=== PATIENT | male | born 1945 | race Caucasian/White ===

== ENCOUNTER → 2016-05-26 | Outpatient (CLI) | payer BC ==
[~2016-05-26] MED LIST: ALBUAER; ASPEC81 PO; ATOR-22 PO; ATV1 PO; FLNIN NAE; METO25TA3 PO; PRLSR20 PO
[2016-05-26 12:59] LABS: BLOOD UREA NITROGEN 14 mg/dl (7-18); BUN/CREATININE RATIO 14.7 (10-20); CALCIUM 8.6 mg/dl (8.5-10.1); CARBON DIOXIDE 29 mmol/L (21-32); CHLORIDE 108 mmol/L (98-107); CREATININE 0.96 mg/dl (0.60-1.40); GLUCOSE 89 mg/dl (70-99); POTASSIUM 4.1 mmol/L (3.5-5.1); SODIUM 144 mmol/L (136-145)
[2016-05-26 13:23] LABS: ALB/GLOB RATIO 1.2 (0.9-2); ALKALINE PHOSPHATASE 106 U/L (45-117); ALT/SGPT 30 U/L (12-78); AST/SGOT 20 U/L (15-37); CHOLESTEROL 128 mg/dl (0-200); CHOLESTEROL/HDL RATIO 2.8; HDL CHOLESTEROL 46 mg/dl; LDL CHOLESTEROL CALCULATED 63 mg/dl; TRIGLYCERIDES 95 mg/dl (0-150); VERY LOW DENSITY LIPOPROT CALC 19 mg/dl
--- NOTE | 2016-05-30 12:06 | CODING QUERY MEDICAL NECESSITY ---
SUPPORTING DIAGNOSIS NEEDED A supporting diagnosis is required for the test/procedure performed on this patient in order for us to be reimbursed by the patient's insurance. Please provide a supporting diagnosis for the following test/procedure listed below next to the test name along with your signature. *If there is no additional diagnosis for this patient that would support the following test/procedure please document that below next to the test/procedure. Test(s)/Procedure(s) that require a supporting diagnosis: * VITAMIN D 25-HYDROXY DIAGNOSIS: * DOS: 05/26/16 Provider Signature: Date: Thank you Earlene Ramey Health Information Management Once completed, please kindly fax back to [phone] For questions please call [phone]
== END | disposition home or self-care (01) ==
LOC: C.LAB 10:54
PROVIDERS: ATTEND Family Medicine
DX: Z00.00 Encounter for general adult medical examination without abnormal findings (principal); E78.9 Disorder of lipoprotein metabolism, unspecified; I10 Essential (primary) hypertension; I25.2 Old myocardial infarction

== ENCOUNTER → 2017-01-16 | Outpatient (CLI) | payer BC ==
--- NOTE | 2017-01-16 16:09 | DIAGNOSTIC IMAGING REPORT ---
ABD/PELVIS NO IV OR ORAL CONT CLINICAL HISTORY: 71 years-old Male presenting with inguinal hernia. TECHNIQUE: Multidetector CT of the abdomen and pelvis was performed without the use of intravenous contrast. IV contrast: None. A dose lowering technique was used consistent with the principles of ALARA (as low as reasonably achievable). COMPARISON: 01/01/2011. CT DOSE (mGy.cm): The estimated cumulative dose is 781.82 mGycm. FINDINGS: Chief Dietitian topogram: Unremarkable. Lung bases: Minimal dependent changes likely atelectasis. Normal heart size. No pericardial or pleural effusion. Liver: Normal morphology. Normal density. Biliary: No gross biliary ductal dilatation allowing for noncontrast technique. Normal gallbladder. Pancreas: Moderate parenchymal atrophy. Spleen: Normal noncontrast appearance. Adrenal glands: Normal noncontrast appearance. Kidneys and ureters: Nonobstructing 3 mm calculus in the upper pole of the left kidney. No hydronephrosis. A punctate calculus may be present in the right kidney (series 3 image 153). Ureters normal. Bladder: Mild circumferential bladder wall thickening. Pelvic organs: Prostate enlargement likely secondary to benign prostatic hyperplasia. Bowel: Diverticulosis of the descending and sigmoid colon. Normal appendix. No bowel obstruction. Feces in the distal small bowel could suggest delayed transit. Peritoneal cavity: No free fluid or intraperitoneal gas. Vasculature: Atherosclerosis of the normal caliber abdominal aorta. Lymph nodes: No gross lymphadenopathy allowing for noncontrast technique. Abdominal wall: Penile implant is in place with a normal appearance of the reservoir subjacent to the left rectus abdominis. Fat-containing right inguinal hernia. No associated inflammatory change or fluid suggest strangulation. Musculoskeletal: Degenerative changes of the spine. IMPRESSION: 1. Fat-containing right inguinal hernia. No associated inflammatory change. 2. Nonobstructing 3 mm calculus in the upper pole of the left kidney. Possible punctate calculus in the right kidney. 3. Circumferential bladder wall thickening could suggest chronic outlet obstruction in the setting of prostatomegaly. 4. Diverticulosis. Electronically signed by: Torin White M.D. 01/16/2017 4:08 PM Dictated Date/Time: 01/16/2017 4:01 PM
== END | disposition home or self-care (01) ==
LOC: C.CTS 15:09
PROVIDERS: ATTEND Urology
DX: K40.90 Unilateral inguinal hernia, without obstruction or gangrene, not specified as recurrent (principal)

== ENCOUNTER → 2017-05-07 | Outpatient (CLI) | payer BC ==
[~2017-05-07] MED LIST changes: -ALBUAER; -ASPEC81 PO; +ASPI81TA28 PO; +ATV/1 PO; -ATV1 PO; +CEPH500C2 PO; +Co Q-10 PO; +FIBER TAB PO; -FLNIN NAE; +FLUT0.15 INTNAS; +HYDR-5688 PO; +MAGN400T6 PO; +MULT-506 PO; +NTRGSL/4 UT; +QVRINH80 INH; +RANI150T3 PO; +SENNTAB23 PO
--- NOTE | 2017-05-07 15:14 | DIAGNOSTIC IMAGING REPORT ---
CT HEAD WITHOUT CONTRAST (CT) CLINICAL HISTORY: POSTERIOR CEREBRAL ARTERY SYNDROME COMPARISON STUDY: 02/07/2011 TECHNIQUE: Axial CT of the brain is performed from the vertex to the skull base. IV contrast was not administered for this examination. A dose lowering technique was utilized adhering to the principles of ALARA. CT DOSE: 638.56 mGycm FINDINGS: No intra or extra-axial mass lesions are visualized. There is no CT evidence of acute cortical infarction. There is no evidence of midline shift. There is no acute hemorrhage. No calvarial fractures are visualized. There are a few small calcifications present within the anne. There is no evidence of pathologic ventricular dilatation. There is no evidence of acute sinusitis IMPRESSION: No acute intracranial findings Electronically signed by: Morgan Valdez M.D. 05/07/2017 3:13 PM Dictated Date/Time: 05/07/2017 3:12 PM
== END | disposition home or self-care (01) ==
LOC: C.CTS 15:02
PROVIDERS: ATTEND Family Medicine
DX: G46.2 Posterior cerebral artery syndrome (principal); H53.8 Other visual disturbances

== ENCOUNTER → 2017-08-27 | Outpatient (CLI) | payer BC ==
[2017-08-27 17:23] LABS: BLOOD UREA NITROGEN 17 mg/dl (7-18)
== END | disposition home or self-care (01) ==
LOC: C.LAB 15:59
DX: H90.5 Unspecified sensorineural hearing loss (principal)

== ENCOUNTER → 2017-10-03 | Outpatient (CLI) | payer BC ==
[~2017-10-03] MED LIST changes: +BECL80AE7 INH; -CEPH500C2 PO; -HYDR-5688 PO; -QVRINH80 INH
--- NOTE | 2017-10-03 11:23 | DIAGNOSTIC IMAGING REPORT ---
BRAIN COMBO FOR IAC CLINICAL HISTORY: H90.5 SNHL hearing loss. TECHNIQUE: Multiaxial MRI acquisition COMPARISON STUDY: None FINDINGS: Diffusion images are negative for an acute ischemic event. Signal characteristics of the cerebellar as well as cerebral hemispheres are unremarkable. Ventricular system is midline. The internal auditory canals are normal. Sella and parasellar regions are unremarkable. Minimal chronic small vessel change and atrophy consistent with age IMPRESSION: Negative study for age The above report was generated using voice recognition software. It may contain grammatical, syntax or spelling errors. Electronically signed by: Delano Negrete M.D. 10/03/2017 11:22 AM Dictated Date/Time: 10/03/2017 11:17 AM
== END | disposition home or self-care (01) ==
LOC: C.MRI 09:38
DX: H90.5 Unspecified sensorineural hearing loss (principal)

== ENCOUNTER 2020-10-05 03:45 | Inpatient (IN) ==
[2020-10-05] MEDS ORDERED: SODIUM CHLORIDE 0.9% 500 ML IV STA (04:15)
[2020-10-05] MEDS ORDERED: SODIUM CHLORIDE 0.9% 1000ML 1,000 ML IV ONE (04:45)
[2020-10-05 04:46] LABS: Basophils # (auto) 0.02 K/uL (0-0.2); Basophils % (auto) 0.2 %; Eosinophils # (auto) 0.07 K/uL (0-0.5); Eosinophils % (auto) 0.7 %; Hematocrit (blood only) 42.9 % (42-52); Hemoglobin 14.3 g/dL (14.0-18.0); Immature Granulocytes # (auto) 0.02 K/uL (0.00-0.02); Immature Granulocytes % (auto) 0.2 %; Lymphocytes # (auto) 0.83 K/uL (1.2-3.4); Lymphocytes % (auto) 8.3 %; Mean Corpuscular Hemoglobin 30.3 pg (25-34); Mean Corpuscular Hgb Conc 33.3 g/dL (32-36); Mean Corpuscular Volume 90.9 fL (80-100); Monocytes # (auto) 0.69 K/uL (0.11-0.59); Monocytes % (auto) 6.9 %; Neutrophils # (auto) 8.37 K/uL (1.4-6.5); Neutrophils % (auto) 83.7 %; Platelet Count 193 K/uL (130-400); RDW Coefficient of Variation 13.8 % (11.5-14.5); RDW Standard Deviation 46.1 fL (36.4-46.3); Red Blood Count 4.72 M/uL (4.7-6.1)
[2020-10-05 05:09] LABS: Albumin Level 3.7 gm/dl (3.4-5.0); BUN Creatinine Ratio 21.3 (10-20); Calcium 8.5 mg/dl (8.5-10.1); Creatinine Clr Calc Pharmacy 81.1 ml/min; Est GFR (African American) 103.8 ml/min; Est GFR (Non-African American) 89.6 ml/min; Potassium 3.6 mmol/L (3.5-5.1)
[2020-10-05 05:12] LABS: C Reactive Protein 6.61 mg/dl (0-0.29); Globulin 3.6 gm/dl (2.5-4.0); Total Protein 7.3 gm/dl (6.4-8.2)
[2020-10-05] MEDS ORDERED: OPTIRAY 320 100ml IV ONE (05:22)
[2020-10-05 07:06] LABS: Appearance Urine Clear (Clear); Bilirubin Urine Negative (Negative); Blood Urine Negative (Negative); Color Urine Yellow; Glucose Urine UA Negative (Negative); Ketones Urine Trace (Negative); Leukocyte Esterase Urine Negative (Negative); Nitrite Urine Negative (Negative); Protein Urine Negative (Negative); Specific Gravity Urine 1.033 (1.000-1.030); Urobilinogen Urine Negative (Negative); pH Urine 6.5 (4.5-7.5)
--- NOTE | 2020-10-05 07:25 | History & Physical Report ---
Date of Service October 05, 2020 Assessment & Plan (1) Gastritis: Patient presents with abdominal discomfort significant weight loss and nausea. Diagnosed with both Crohn's disease and celiac disease. Recently had endoscopy in July 2020 showing gastritis and duodenitis. Patient intolerant of support at home given lack of able to keep oral intake down. Patient will be brought to our facility put on Protonix intravenous GI consultation consideration of Carafate but this will be held as there is a consideration of repeat upper endoscopy. Following laboratories including LFTs. Patient does have a minor elevation of lipase to 883 subsequently n.p.o. and IV fluids will be entertained for the possibility of mild pancreatitis (2) CAD (coronary artery disease): Patient typically in aspirin atorvastatin this will be held at this time metoprolol succinate will be continued with a small sip of water (3) Dyslipidemia: (4) Idiopathic polyneuropathy: Seems to be stable at this time (5) DVT prophylaxis: Chemoprophylaxis is on hold for possible procedure patient will have SCDs History of Present Illness Primary Care Provider: Jass Lizarraga MD 75-year-old male presents with abdominal pain and recent weight loss to emergency department. Patient with recent endoscopy August 04, [address] Delaney at that time gastritis was seen. Seen by his PCP and may following up for Crohn's and celiac disease that time he was started on 6-MP. There is also discussion of the PCP note regarding mental status including a neuro evaluation MRI of his brain and the use of lorazepam 1 mg 3 times daily. In the ER he is unable to tolerate oral intake labs are stable CT scan was only suggestive of colitis and duodenitis. Patient has had no increased diarrhea or change in bowel habits consistent with a lower bowel inflammation such as consideration for his Crohn's or celiac. 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 Allergies Allergy/AdvReac Type Severity Reaction Status Date / Time tamsulosin Allergy Intermediate SYNCOPE Verified 10/05/20 07:15 doxycycline Allergy Unknown UNKNOWN Verified 10/05/20 07:15 Home Medications Medication Instructions Recorded Confirmed Type aspirin 81 mg PO QAM 06/21/19 10/05/20 History nitroglycerin 0.4 mg sublingual 0.4 mg SL Q5M PRN #20 tab 10/21/19 10/05/20 Rx tablet magnesium oxide 400 mg PO BID cap 01/29/20 10/05/20 History sennosides 8.6 mg-docusate sodium 1 tabcap PO BID PRN tab 01/29/20 10/05/20 History 50 mg tablet pantoprazole 40 mg tablet,delayed 40 mg PO QAM 90 Days #90 tab 04/28/20 10/05/20 Rx release ondansetron HCl 8 mg tablet 8 mg PO Q8H PRN #20 tab 06/20/20 10/05/20 Rx atorvastatin 40 mg tablet 40 mg PO HS #90 tab 07/28/20 10/05/20 Rx metoprolol succinate 25 mg 25 mg PO QAM #90 tab 07/28/20 10/05/20 Rx tablet,extended release 24 hr lorazepam 1 mg tablet 1 mg PO TID PRN #90 tab 10/04/20 10/05/20 Rx mercaptopurine 75 mg PO DIRECTED 10/05/20 10/05/20 History Past Med/Surg History Medical History Acid reflux CAD (coronary artery disease) Remote history of anterior myocardial infarction 1992 treated with thrombolytic therapy. Followed by [facility]. Celiac disease Crohn's colitis Diverticulosis Dizziness Dyslipidemia History of kidney stones History of myocardial infarction 1992 - follows w/ Dr. Yu Hx of gastritis Lower back pain Mild intermittent asthma NO ACTIVE INHALER Sensorineural hearing loss of both ears Tinnitus, bilateral Surgical History History of cardiac cath 1992 - [place] - angioplasty (no stents) History of colonoscopy History of esophagogastroduodenoscopy (EGD) History of left cataract surgery History of penile implant Hx of inguinal hernia repair Rt Status post trigger finger release Family History Father , age 71 of chronic leukemia Stroke Kidney stones Lung cancer Brother Skin cancer Other No family history of adverse response to anesthesia Social History Smoking Status: Never smoker Second Hand Exposure: No; Hx Alcohol Use: No Hx Substance Use: No Preferred Language: [place] Communication Ability: Effective Visual Impairment: No Limitations Hearing Ability: Normal Vault Installer Required: No Beliefs That Will Affect Care: None marital status: Current Living Situation: Spouse current occupational status: 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 Feels Safe at Home: Yes Dental Care, Regularly: Yes Physical Activity Frequency: 3-4 Times per Week Physical Activity Frequency Comment: walking Seatbelt Use: always Assistive Devices: Glasses Review of Systems Review of Systems: Mild distress and fatigue no headache, no visual changes no speech or swallowing issues no chest pain, pressure or palpitations no shortness of breath, cough or wheezes no abdominal pain, nausea or vomiting, diarrhea or constipation no dysuria, hematuria or frequency no focal joint pain or swelling no back pain, CVA tenderness or radicular pain no bruising, bleeding or rashes no focal signs of weakness or numbness or altered sensation no complaints of anxiety or depression.. Physical Exam Physical Exam: The patient appeared well nourished and normally developed. Vital signs as documented. Head exam is normocephalic atraumatic Neck is without JVD, thyromegaly, or carotid bruits. Lungs are clear to auscultation, no focal loss of breath sounds Cardiac exam, Rhythm is regular.. No murmurs, rubs or gallops. Abdominal exam reveals normal bowel sounds, soft non tender, no masses Extremities are nonedematous and both pedal pulses are present Neurologic exam is alert and oriented, no focal loss of strength or sensation Skin is without bruises or rashes Psychologically is without concerns for anxiety or depression Results & Data Results & Data ([facility]) Vital Signs (Past 12 Hours) Vital Signs Temp Pulse Pulse Resp BP BP Pulse Ox 10/05/20 07:08 107 H 22 137/80 96 10/05/20 06:30 110 H 20 97 10/05/20 06:00 98 H 13 95 10/05/20 05:30 98 H 19 93 10/05/20 05:00 97 H 15 94 10/05/20 04:30 105 H 18 93 10/05/20 04:21 94 10/05/20 04:18 104 H 17 94 10/05/20 04:17 106 H 17 118/78 98 10/05/20 03:57 97.9 F 85 16 118/[address] abdomen pelvis performed 10/05/2020 read by stat rad edema in the right upper quadrant of the abdomen adjacent to the distal stomach and proximal duodenum. Consider gastritis and/or duodenitis. Gastric ulcer disease is not excluded although no perforation is seen cholecystitis is considered less likely. Large amount of stool in the right colon with maximum diameter 7.4 cm. No other dilated bowel loops are seen. Diverticulosis in the sigmoid colon without acute diverticulitis. Appendix is not visualized. Abdominal aorta is calcified. Bony structures are intact. PG Care Time/CCT Total # of Minutes Spent Total Time Spent with Patient: Total time spent is greater than 50% in coordination of care (as documented) at patient's floor/unit and/or counseling patient: Coding Level of Care Code 02362 Initial Inpt Care Lvl 2 Diagnoses Gastritis K29.70 CAD (coronary artery disease) I25.10 Dyslipidemia E78.5 Idiopathic polyneuropathy G60.9 DVT prophylaxis Z29.9
--- NOTE | 2020-10-05 07:50 | Emergency Department Note ---
Impression & Plan Acute pancreatitis, Gastritis and duodenitis ED Provider Note Name: ERUM MARES Age: 75 Sex: M Arrives Via: Walk-In Informant: Patient ED Provider: Surya Rocha MD Chief Complaint: abdominal pain Impression: Acute Pancreatitis Gastritis and Duodenitis Medical Decision Makin yr old male with difficult last 6+ months with abdominal pains, weight loss and nausea issues. Seen by GI and diagnosed with Crohn's and Celiac, though due to persistent symptoms 6MP started 2 weeks ago. Rapidly worsening since and quite unwell/dehydrated appearing on arrival. Labs with elevated CRP and Lipase. CT with edema around stomach of no clear etiology, though gastritis seems most likely, but could be secondary to pancreatitis, cholecystitis, etc. Reviewed with GI and will started IV PPI along with abx coverage empirically. He does not have peritonitis on exam a this time and thus I do not feel that gen surg emergent eval indicated at this time. Hospitalist consulted for further management. Prior Medical Record and Triage/Nursing Notes reviewed by Me Additional history obtained from chart Differentials:Appendicitis, infections, diverticulitis, UTI, obstruction, mesenteric ischemia, aortic pathology, inflammatory bowel disease, renal colic, PUD, pancreatitis, biliary pathology, hernia, volvulus, constipation, as well as other pathologies. Vital Signs: reviewed and remarkable for tachy Interventions: saline lock, nss bolus, zofran iv, protonix iv, mefoxin iv Labs:Reviewed and remarkable for lipase elevation Imaging:[facility] Radiologist interpretation reviewed by me: "CT ABDOMEN & PELVIS With Contrast: Comparison to June 21, 2019 There is edema in the right upper quadrant of the abdomen adjacent to the distal stomach, proximal duodenum, and gallbladder neck. Consider gastritis and/or duodenitis. Gastric ulcer disease is not excluded although no perforation is seen. Cholecystitis is considered less likely. There is a large amount of stool in the right colon measuring 7.4 cm consistent with constipation. No other dilated bowel loops are seen. There is diverticulos is of the sigmoid colon without signs of acute diverticulitis. The appendix is not clearly visualized. The abdominal aorta is moderately calcified but nondilated. There is a penile pump reservoir in the left anterior pelvis. Mild to moderate degenerative changes of the lumbar spine. No acute fracture or subluxation. Radiologist: Nate Allen MD" EKG:Per My Interpretation: Indication Epigastric pain: NSR 95 bpm, qtc 485 with RBBB. No Ectopy. No Ischemia. Compared to EKG 02/18/17, no significant changes. Consults:Dr Matthias CARRILLO GI and Dr Dominique CARRILLO Hospitalist Plan: Disposition:Hospitalization. Condition: Good History of Present Illness:75 yr old male arrives for evaluation of nausea. Patient with 6 months of eating issues, nausea, and weight loss. Following with GI here who have diagnosed him with Celiac and Crohn's. Due to persistent symptoms started on 6MP 2 weeks ago, which he notes this has just been worsening symptoms since. Unable to eat due to severe nausea the last few days. Associated with vague epigastric pain without radiation, though did note some mild left flank discomfort periodically the last few days. No fevers, chills, syncope, chest pain, sob, rashes, urinary/bowel changes, leg swelling, calf pain, nor other symptoms. No falls, trauma, injuries. No medications prior to arrival. Eating makes worse. ROS: See above HPI for pertinent positives & negatives. A total of 10 systems reviewed and were otherwise negative. Past Medical History:See Below Past Surgical History:See Below Family History:See Below Social History:See Below Home Medications:See Below Allergies:Tamsulosin, doxycycline Vitals:Blood Pressure: 137/80, Pulse 107, RR 22, T 36.6C, O2 96% on RA Physical Exam: GENERAL: Patient is uncomfortable/unwell appearing and in minimal distress. He is cachectic and dehydrated by examine EYES: No scleral icterus, unremarkable pupils. ENT: Mucous membranes dry ++, no nasal congestion. NECK: No masses appreciated, nomeningismus, trachea is midline. RESPIRATORY: No dyspnea. Clear to auscultation and equal bilaterally. No wheeze, no rhonchi. CARDIOVASCULAR: Regular rate and rhythm.No murmurs, rubs, gallops appreciated. GASTROINTESTINAL: Vague epigastric TTP, otherwise abdomen soft, non-tender, no peritonitis.Bowel sounds positive.No masses appreciated. BACK: No midline tenderness, no CVA tenderness EXTREMITIES: Normal motion all extremities, no cyanosis, no edema. NEUROLOGIC: Alert and oriented, no acute motor or sensory deficits, no focal weakness, cranial nerves grossly intact. SKIN: No rash, no jaundice, no diaphoresis. PSYCH: Appropriate GCS: 15 ED Course: Times/Reassessments: multiple improvement with fluids/zofran. Agreeable to hospitalization Surya Rocha MD Past Med/Surg History Medical History Acid reflux CAD (coronary artery disease) Remote history of anterior myocardial infarction 1992 treated with thrombolytic therapy. Followed by [facility]. Celiac disease Crohn's colitis Diverticulosis Dizziness Dyslipidemia History of kidney stones History of myocardial infarction 1992 - follows w/ Dr. Yu Hx of gastritis Lower back pain Mild intermittent asthma NO ACTIVE INHALER Sensorineural hearing loss of both ears Tinnitus, bilateral Surgical History History of cardiac cath 1992 - [place] - angioplasty (no stents) History of colonoscopy History of esophagogastroduodenoscopy (EGD) History of left cataract surgery History of penile implant Hx of inguinal hernia repair Rt Status post trigger finger release Family History Father , age 71 of chronic leukemia Stroke Kidney stones Lung cancer Brother Skin cancer Other No family history of adverse response to anesthesia Social History Smoking Status: Never smoker Second Hand Exposure: No; Hx Alcohol Use: No Hx Substance Use: No Preferred Language: Danish Communication Ability: Effective Visual Impairment: No Limitations Hearing Ability: Normal Inspector Eyeglass Required: No Beliefs That Will Affect Care: None marital status: Current Living Situation: Spouse current occupational status: 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 Feels Safe at Home: Yes Dental Care, Regularly: Yes Physical Activity Frequency: 3-4 Times per Week Physical Activity Frequency Comment: walking Seatbelt Use: always Assistive Devices: Glasses Allergies Allergies Allergy/AdvReac Type Severity Reaction Status Date / Time tamsulosin Allergy Intermediate SYNCOPE Verified 10/05/20 07:15 doxycycline Allergy Unknown UNKNOWN Verified 10/05/20 07:15 Home Meds Home Medications Medication Instructions Recorded Confirmed aspirin 81 mg PO QAM 06/21/19 10/05/20 magnesium oxide 400 mg PO BID cap 01/29/20 10/05/20 sennosides 8.6 mg-docusate sodium 1 tabcap PO BID PRN tab 01/29/20 10/05/20 50 mg tablet mercaptopurine 75 mg PO DIRECTED 10/05/20 10/05/20 Previous Rx's Medication Instructions Recorded nitroglycerin 0.4 mg sublingual 0.4 mg SL Q5M PRN #20 tab 10/21/19 tablet pantoprazole 40 mg tablet,delayed 40 mg PO QAM 90 Days #90 tab 04/28/20 release ondansetron HCl 8 mg tablet 8 mg PO Q8H PRN #20 tab 06/20/20 atorvastatin 40 mg tablet 40 mg PO HS #90 tab 07/28/20 metoprolol succinate 25 mg 25 mg PO QAM #90 tab 07/28/20 tablet,extended release 24 hr lorazepam 1 mg tablet 1 mg PO TID PRN #90 tab 10/04/20 Results & Data (ED) Vital Signs Vital Signs - 24 hr 10/05/20 03:57 10/05/20 04:17 10/05/20 04:18 Temperature 36.6 C Temperature Source Temporal Artery Scan Pulse Rate 85 106 H 104 H Pulse Rate [Apical] Pulse Rate from SpO2 Sensor 106 H 104 H Respiratory Rate 16 17 17 Blood Pressure 118/79 118/78 Blood Pressure [Left Arm] Blood Pressure Mean 92 91 Blood Pressure Mean [Left Arm] Blood Pressure Position Lying Pulse Oximetry 97 98 94 Oxygen Delivery Method Room Air Sepsis Recent Fever Within 48 Hours No Sepsis New/Unexplained Change in Mental Status No Sepsis Action Taken by Nursing No Action Required 10/05/20 04:21 10/05/20 04:30 10/05/20 05:00 Temperature Temperature Source Pulse Rate 105 H 97 H Pulse Rate [Apical] Pulse Rate from SpO2 Sensor 106 H 97 H Respiratory Rate 18 15 Blood Pressure Blood Pressure [Left Arm] Blood Pressure Mean Blood Pressure Mean [Left Arm] Blood Pressure Position Pulse Oximetry 94 93 94 Oxygen Delivery Method Room Air Sepsis Recent Fever Within 48 Hours Sepsis New/Unexplained Change in Mental Status Sepsis Action Taken by Nursing 10/05/20 05:30 10/05/20 06:00 10/05/20 06:30 Temperature Temperature Source Pulse Rate 98 H 98 H 110 H Pulse Rate [Apical] Pulse Rate from SpO2 Sensor 97 H 97 H 111 H Respiratory Rate 19 13 20 Blood Pressure Blood Pressure [Left Arm] Blood Pressure Mean Blood Pressure Mean [Left Arm] Blood Pressure Position Pulse Oximetry 93 95 97 Oxygen Delivery Method Sepsis Recent Fever Within 48 Hours Sepsis New/Unexplained Change in Mental Status Sepsis Action Taken by Nursing 10/05/20 07:08 Temperature Temperature Source Pulse Rate Pulse Rate [Apical] 107 H Pulse Rate from SpO2 Sensor Respiratory Rate 22 Blood Pressure Blood Pressure [Left Arm] 137/80 Blood Pressure Mean Blood Pressure Mean [Left Arm] 99 Blood Pressure Position Pulse Oximetry 96 Oxygen Delivery Method Room Air Sepsis Recent Fever Within 48 Hours Sepsis New/Unexplained Change in Mental Status Sepsis Action Taken by Nursing Laboratory Data Result diagrams: 10/05/20 04:15 10/05/20 04:15 Lab Results 10/05/20 10/05/20 10/05/20 Range/Units 04:15 04:15 06:50 WBC 10.00 (4.8-10.8) K/uL RBC 4.72 (4.7-6.1) M/uL Hgb 14.3 (14.0-18.0) g/dL Hct 42.9 (42-52) % MCV 90.9 (80-100) fL MCH 30.3 (25-34) pg MCHC 33.3 (32-36) g/dL RDW Std Deviation 46.1 (36.4-46.3) fL RDW Coeff of Daquan 13.8 (11.5-14.5) % Plt Count 193 (130-400) K/uL MPV 10.0 (7.4-10.4) fL Immature Gran % (Auto) 0.2 % Neut % (Auto) 83.7 % Lymph % (Auto) 8.3 % [place] % (Auto) 6.9 % Eos % (Auto) 0.7 % Baso % (Auto) 0.2 % Neut # (Auto) 8.37 H (1.4-6.5) K/uL Lymph # (Auto) 0.83 L (1.2-3.4) K/uL [place] # (Auto) 0.69 H (0.11-0.59) K/uL Eos # (Auto) 0.07 (0-0.5) K/uL Baso # (Auto) 0.02 (0-0.2) K/uL Immature Gran # (Auto) 0.02 (0.00-0.02) K/uL Sodium 135 L (136-145) mmol/L Potassium 3.6 (3.5-5.1) mmol/L Chloride 103 (98-107) mmol/L Carbon Dioxide 27 (21-32) mmol/L Anion Gap 5 (3-11) BUN 16 (7-18) mg/dl Creatinine 0.74 (0.6-1.4) mg/dl Est Cr Clr Drug Dosing 81.1 ml/min Est GFR ( Amer) 103.8 ml/min Est GFR (Non-Af Amer) 89.6 ml/min BUN/Creatinine Ratio 21.3 H (10-20) Glucose 93 (70-99) mg/dl Calcium 8.5 (8.5-10.1) mg/dl Total Bilirubin 1.0 (0.2-1) mg/dl AST 44 H (15-37) U/L ALT 87 H (12-78) U/L Alkaline Phosphatase 101 (45-117) U/L C-Reactive Protein 6.61 H (0-0.29) mg/dl Total Protein 7.3 (6.4-8.2) gm/dl Albumin 3.7 (3.4-5.0) gm/dl Globulin 3.6 (2.5-4.0) gm/dl Albumin/Globulin Ratio 1.0 (0.9-2) Lipase 883 H (73-393) U/L Urine Color Yellow Urine Appearance Clear (Clear) Urine pH 6.5 (4.5-7.5) Ur Specific [place] 1.033 H (1.000-1.030) Urine Protein Negative (Negative) Urine Glucose (UA) Negative (Negative) Urine Ketones Trace H (Negative) Urine Blood Negative (Negative) Urine Nitrite Negative (Negative) Urine Bilirubin Negative (Negative) Urine Urobilinogen Negative (Negative) Ur Leukocyte Esterase Negative (Negative) Administered Medications Discontinued Medications Sodium Chloride (Nss) 500 mls @ 999 mls/hr IV .Q31M STA Stop: 10/05/20 04:45 Last Infusion: 10/05/20 04:59 Dose: 0 mls/hr Documented by: [id number] Admin: 10/05/20 04:25 Dose: 999 mls/hr Documented by: [id number] Sodium Chloride (Nss 1000ml) 1,000 mls @ 999 mls/hr IV .Q1H1M ONE Stop: 10/05/20 05:45 Last Infusion: 10/05/20 06:46 Dose: 0 mls/hr Documented by: [id number] Admin: 10/05/20 05:32 Dose: 999 mls/hr Documented by: [id number] Ioversol (Optiray 320 100ml) 94 ml IV ONCE ONE Stop: 10/05/20 05:23 Last Admin: 10/05/20 05:22 Dose: 94 ml Documented by: [id number] Discharge Plan Visit Data Chief Complaint: Abdominal Pain Stated Complaint: ABD,WEAKNESS ED Provider: Surya Rocha Discharge Problem: Acute pancreatitis, Gastritis and duodenitis Forms Stand Alone Forms: [facility] [employer] Prescriptions Prescriptions: No Action nitroglycerin 0.4 mg tablet, sublingual 0.4 mg SL Q5M PRN (Reason: chest pain) Qty: 20 RF: 3 lorazepam 1 mg tablet 1 mg PO TID PRN (Reason: anxiety) Qty: 90 RF: 0 sennosides-docusate sodium [Colace 2-In-1] 8.6-50 mg tablet 1 tabcap PO BID PRN (Reason: Constipation) RF: 0 magnesium oxide 400 mg magnesium capsule 400 mg PO BID RF: 0 atorvastatin 40 mg tablet 40 mg PO HS Qty: 90 RF: 3 metoprolol succinate 25 mg tablet extended release 24 hr 25 mg PO QAM Qty: 90 RF: 3 pantoprazole [Protonix] 40 mg tablet,delayed release (DR/EC) 40 mg PO QAM 90 Days Qty: 90 RF: 3 ondansetron HCl 8 mg tablet 8 mg PO Q8H PRN (Reason: nausea and vomiting) Qty: 20 RF: 1 aspirin 81 mg tablet,delayed release (DR/EC) 81 mg PO QAM RF: 0 mercaptopurine 50 mg tablet 75 mg PO DIRECTED RF: 0 Discharge Problem: Acute pancreatitis Qualifiers: Pancreatitis type: drug induced Acute pancreatitis complication: no infection or necrosis Qualified Code(s): K85.30 - Drug induced acute pancreatitis without necrosis or infection
[2020-10-05] MEDS ORDERED: cefOXitin 2,000 MG/60 ML BAG IV STA (07:59)
[2020-10-05] MEDS ORDERED: PANTOprazole 80 MG in DEXTROSE 5% 100 ML IV STA (07:59)
--- NOTE | 2020-10-05 09:30 | CT Scan Report ---
CT abd pelvis IV con only CLINICAL HISTORY: LLQ pain, history crohns COMPARISON STUDY: April 12, 2020 TECHNIQUE: A dose lowering technique was utilized adhering to the principles of ALARA. CT DOSE: 273.91 mGy.cm FINDINGS: Lower chest: Limited evaluation of lung bases shows no evidence of acute abnormalities.. Liver: The contrast-enhanced liver is normal in size, contour, and attenuation. There is no intrahepa tic biliary ductal dilatation. The hepatic veins and portal veins are patent. Gallbladder: Unremarkable. Spleen: Normal in size and attenuation. Pancreas: Unremarkable. Adrenal glands: Unremarkable. Kidneys: There is symmetric renal cortical enhancement. The kidneys are normal in size without hydron ephrosis. Pelvic viscera: Urinary bladder is overdistended with mild diffuse thickening of its wall. Prostate g land is slightly enlarged. Visualized abdominal reservoir of penile implant as well as subcutaneous and penile tubing are seen w ithout definite surrounding inflammatory changes. Bowel: There is diffuse wall thickening and mucosal enhancement of the first portion of duodenum with surrounding fat stranding likely represent duodenitis. Bowel loops are nondilated. Appendix is not w ell seen. Moderate amount of stool is seen within colonic loops. Mild diverticulosis of sigmoid colon is seen without evidence of diverticulitis. Peritoneum: There is no intraperitoneal free air or abdominal ascites. Vasculature: The abdominal aorta is normal in course and caliber and with extensive calcifications of its wall. Adenopathy: No significant mesenteric lymphadenopathy seen. Multiple small lymph nodes are seen in th e retroperitoneal region, measuring less than 1 cm in size and considered nonpathological by CT size criteria. Skeletal structures: Multilevel degenerative changes of the spine. Mild anterolisthesis of L4 on L5. IMPRESSION: 1. Inflammatory changes surrounding first portion of duodenum which shows mucosal enhancement and wa ll thickening which could represent duodenitis. No definite cholecystitis or gastritis seen however c annot be completely ruled out. 2. Moderate amount of stool within colonic loops, constipation pattern. 3. Atherosclerosis. 4. Mild enlargement of prostate gland. Overdistended urinary bladder. 5. Diverticulosis of sigmoid colon without evidence of diverticulitis. 6. Fluid-filled abdominal reservoir of penile implant is seen within left lower quadrant, in the reg ion of pain without definite surrounding inflammatory changes. ACT 112: Negative or not required by law. The above report was generated using voice recognition software. It may contain grammatical, syntax o r spelling errors. Electronically signed by: Amaya Andrade DO 10/05/2020 9:29 AM
--- NOTE | 2020-10-05 09:44 | Electrocardiogram Report ---
Test Reason : Blood Pressure : / mmHG Vent. Rate : 095 BPM Atrial Rate : 095 BPM P-R Int : 162 ms QRS Dur : 144 ms QT Int : 386 ms P-R-T Axes : 054 050 030 degrees QTc Int : 485 ms Normal sinus rhythm Right bundle branch block Abnormal ECG When compared with ECG of 18-FEB-2017 14:24, Vent. rate has increased BY 33 BPM Confirmed by Louis Molina ([id number]) on 10/05/2020 9:44:02 AM Referred By: REFERRED SELF Confirmed By:Sergey Molina
[2020-10-05] MEDS: LACTATED RINGER'S 1,000 ML IV SCH ×2 (10:56→17:41)
[2020-10-05] MEDS: PANTOprazole 40 MG in SYRINGE 0 ML IV SCH ×2 (11:30→20:48)
[2020-10-05] MEDS: METOPROLOL SUCC 25MG EXT REL TAB PO SCH (11:30)
[2020-10-05] MEDS: FAMOTIDINE 20 MG in SYRINGE 3 ML IV SCH ×2 (11:30→21:17)
[2020-10-05 11:56] LABS: Albumin Level 3.5 gm/dl (3.4-5.0); BUN Creatinine Ratio 14.1 (10-20); Calcium 9.1 mg/dl (8.5-10.1); Est GFR (African American) 99.6 ml/min; Est GFR (Non-African American) 85.9 ml/min; Potassium 3.9 mmol/L (3.5-5.1)
[2020-10-05 11:58] LABS: Bilirubin,Total 1.1 mg/dl (0.2-1); Globulin 3.5 gm/dl (2.5-4.0)
--- NOTE | 2020-10-05 12:01 | Gastrointestinal Consultation ---
Date of Consultation October 05, 2020 Assessment & Plan (1) Acute pancreatitis: Unclear based on CT, symptoms, and elevated lipase whether this is a duodenitis vs mild pancreatitis. Given he recently began 6MP within the past 2 weeks, there is certainly an increased concern of pancreatitis as this is one of the most common side effects of this medication. -Stop 6MP at present -NPO -IV fluid hydration -Pain control & anti-emetics prn per primary team (2) Gastritis and duodenitis: In the event this is a duodenitis, will treat accordingly with IV Pantoprazole 40 mg BID & Carafate 4 times daily prior to meals and bedtime. If no improvement, can consider repeating EGD. Thank you for allowing us to participating in the care of this patient. If you should have any further questions or concerns, do not hesitate to contact us at extension [phone] or [phone]. Supervising Physician Co-Signing Physician Notes Agree with DANA Kraft as above Abd: Soft, Tender LUQ, ND, +BS Continue current therapy and supportive care Continue PPI therapy Advance to gluten free diet tomorrow if he improves clinically History of Present Illness Reason for Consultation: gastritis, weight loss Attending Physician: Escobar Fox MD History of Present Illness Patient is a 75 yo male with a reported history of Celiac Disease & suspected Crohn's Disease currently undergoing GI care with Dr. Delaney. Per review of notes, it appears he had a colonoscopy in December 2019 that indicated no endoscopic findings, but revealed concern for a focal active colitis on biopsies of the right colon. Patient explains that he was to begin Remicade therapy, but felt uncomfortable proceeding with this due to the lifestyle change and uncertainty of his diagnosis. He recently noted that despite following a gluten- free diet after a TTG was mildly elevated at 6, he continued to have symptoms that concerned him for possible Crohn's. He decided to begin the 6MP for this reason. The patient reports that he started 6MP on 09/17/20 for his suspected Crohn's Disease, rather than Remicade. He presents to the hospital with symptoms of left upper quadrant abdominal pain. He reports that he feels like he has to e at frequently or his stomach hurts worse. Last EGD was in July 2020 and did not indicate any significant issue with the exception of mild gastritis. CT imaging has been read by overnight radiology and day staff as well. The final read indicates a concern for duodenitis. The final read indicates a normal pancreas, however lipase is 883 and patient reports abdominal discomfort in the LUQ. Allergies Allergy/AdvReac Type Severity Reaction Status Date / Time tamsulosin Allergy Intermediate SYNCOPE Verified 10/05/20 07:15 doxycycline Allergy Unknown UNKNOWN Verified 10/05/20 07:15 Home Medications Medication Instructions Recorded Confirmed Type aspirin 81 mg PO QAM 06/21/19 10/05/20 History nitroglycerin 0.4 mg sublingual 0.4 mg SL Q5M PRN #20 tab 10/21/19 10/05/20 Rx tablet magnesium oxide 400 mg PO BID cap 01/29/20 10/05/20 History sennosides 8.6 mg-docusate sodium 1 tabcap PO BID PRN tab 01/29/20 10/05/20 History 50 mg tablet pantoprazole 40 mg tablet,delayed 40 mg PO QAM 90 Days #90 tab 04/28/20 10/05/20 Rx release ondansetron HCl 8 mg tablet 8 mg PO Q8H PRN #20 tab 06/20/20 10/05/20 Rx atorvastatin 40 mg tablet 40 mg PO HS #90 tab 07/28/20 10/05/20 Rx metoprolol succinate 25 mg 25 mg PO QAM #90 tab 07/28/20 10/05/20 Rx tablet,extended release 24 hr lorazepam 1 mg tablet 1 mg PO TID PRN #90 tab 10/04/20 10/05/20 Rx mercaptopurine 75 mg PO DIRECTED 10/05/20 10/05/20 History Patient History Medical History Acid reflux CAD (coronary artery disease) Remote history of anterior myocardial infarction 1992 treated with thrombolytic therapy. Followed by [facility]. Celiac disease Crohn's colitis Diverticulosis Dizziness Dyslipidemia History of kidney stones History of myocardial infarction 1992 - follows w/ Dr. Yu Hx of gastritis Lower back pain Mild intermittent asthma NO ACTIVE INHALER Sensorineural hearing loss of both ears Tinnitus, bilateral Surgical History History of cardiac cath 1992 - [place] - angioplasty (no stents) History of colonoscopy History of esophagogastroduodenoscopy (EGD) History of left cataract surgery History of penile implant Hx of inguinal hernia repair Rt Status post trigger finger release Family History Father , age 71 of chronic leukemia Stroke Kidney stones Lung cancer Brother Skin cancer Other No family history of adverse response to anesthesia Social History Smoking Status: Never smoker Second Hand Exposure: No; Hx Alcohol Use: No Hx Substance Use: No Preferred Language: Swedish Communication Ability: Effective Visual Impairment: No Limitations Hearing Ability: Normal Fleet Manager Required: No Beliefs That Will Affect Care: None marital status: Current Living Situation: Spouse current occupational status: 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 Feels Safe at Home: Yes Safety Concerns: Feels Safe At This Time Dental Care, Regularly: Yes Physical Activity Frequency: 3-4 Times per Week Physical Activity Frequency Comment: walking Seatbelt Use: always Assistive Devices: Glasses Review of Systems Constitutional: weight loss has halted, but this was his previous concern Respiratory: no cough and no dyspnea Cardiovascular: no chest pain Gastrointestinal: + abdominal pain; no early satiety, no nausea and no vomiting Psychiatric: no problem reported Physical Exam Constitutional: well developed Respiratory: normal respiratory effort, lungs clear to auscultation Cardiovascular: RRR, no murmur, no edema Gastrointestinal (Abdomen): Inspection/Auscultation: abdomen normal to inspection and normal bowel sounds; abdomen not distended Percussion/Palpation: + abdomen tender and abdomen soft Musculoskeletal: Head/Neck/Chest: normocephalic Psychiatric: A+Ox3, euthymic affect Results & Data ([facility]) Vital Signs (Past 12 Hours) Vital Signs Temp Pulse Pulse Pulse Resp BP BP 10/05/20 10:44 37.4 C 110 H 18 110/67 10/05/20 10:13 107 H 18 122/69 10/05/20 09:30 97 H 18 120/85 10/05/20 09:00 102 H 18 140/77 10/05/20 08:30 99 H 18 132/75 06/16/21 08:04 114 H 18 136/84 10/05/20 07:30 100 H 18 124/87 10/05/20 07:10 100 H 18 137/80 10/05/20 07:08 107 H 22 137/80 10/05/20 06:30 110 H 20 10/05/20 06:00 98 H 13 10/05/20 05:30 98 H 19 10/05/20 05:00 97 H 15 10/05/20 04:30 105 H 18 10/05/20 04:21 10/05/20 04:18 104 H 17 10/05/20 04:17 106 H 17 118/78 10/05/20 03:57 36.6 C 85 16 118/79 Pulse Ox 10/05/20 10:44 95 10/05/20 10:13 95 10/05/20 09:30 95 10/05/20 09:00 93 10/05/20 08:30 96 10/05/20 08:04 99 10/05/20 07:30 93 10/05/20 07:10 96 10/05/20 07:08 96 10/05/20 06:30 97 10/05/20 06:00 95 10/05/20 05:30 93 10/05/20 05:00 94 10/05/20 04:30 93 10/05/20 04:21 94 10/05/20 04:18 94 10/05/20 04:17 98 10/05/20 03:57 97 PG Care Time/CCT Total # of Minutes Spent Total Time Spent with Patient: Total time spent is greater than 50% in coordination of care (as documented) at patient's floor/unit and/or counseling patient: Coding Level of Care Code 57133 Initial Inpt Care Lvl 3 Diagnoses Acute pancreatitis K85.30 Acute pancreatitis complication: no infection or necrosis Pancreatitis type: drug induced Gastritis and duodenitis K29.90 (1) Acute pancreatitis Acute pancreatitis complication: no infection or necrosis Pancreatitis type: drug induced Qualified Code(s): K85.30 - Drug induced acute pancreatitis without necrosis or infection
[2020-10-05] MEDS: LORazepam 1 MG TAB PO PRN ×2 (12:25→20:47)
[2020-10-05] MEDS: SUCRALFATE 1 GM/10 ML UDC PO SCH ×3 (13:09→20:49)
[2020-10-05] MEDS ORDERED: POLYETHYLENE (MIRALAX) 17 GM PACK PO PRN (19:41)
[2020-10-05] MEDS ORDERED: MoRPHine SULFATE 4 MG/ML 1 ML CARP\\VIAL IV PRN (19:41)
[2020-10-05] MEDS ORDERED: POLYETHYLENE (MIRALAX) 17 GM PACK PO ONE (19:56)
[2020-10-05] MEDS: MAGNESIUM OXIDE 400 MG TAB PO SCH (20:46)
[2020-10-05] MEDS: MoRPHine SULFATE 2 MG/ML CARP IV PRN (23:25)
[2020-10-06] MEDS: MoRPHine SULFATE 2 MG/ML CARP IV PRN (06:39)
[2020-10-06 07:30] LABS: BUN Creatinine Ratio 19.8 (10-20); Calcium 8.5 mg/dl (8.5-10.1); Creatinine Clr Calc Pharmacy 84.4 ml/min; Est GFR (African American) 106.9 ml/min; Est GFR (Non-African American) 92.2 ml/min; Magnesium 2.1 mg/dl (1.8-2.4); Potassium 3.9 mmol/L (3.5-5.1)
[2020-10-06] MEDS: ONDANSETRON INJ 2 MG/ML 2 ML VIAL IV PRN (07:32)
[2020-10-06 07:33] LABS: Bilirubin,Total 1.1 mg/dl (0.2-1); Globulin 3.1 gm/dl (2.5-4.0); Total Protein 6.1 gm/dl (6.4-8.2)
[2020-10-06] MEDS: METOPROLOL SUCC 25MG EXT REL TAB PO SCH (08:14)
[2020-10-06] MEDS: MAGNESIUM OXIDE 400 MG TAB PO SCH ×2 (08:14→19:40)
[2020-10-06] MEDS: SUCRALFATE 1 GM/10 ML UDC PO SCH ×4 (08:15→19:41)
[2020-10-06] MEDS: PANTOprazole 40 MG in SYRINGE 0 ML IV SCH ×2 (08:15→19:40)
[2020-10-06] MEDS: FAMOTIDINE 20 MG in SYRINGE 3 ML IV SCH ×2 (08:16→19:49)
[2020-10-06] MEDS: LACTATED RINGER'S 1,000 ML IV SCH ×3 (11:11→19:41)
[2020-10-06] MEDS ORDERED: SENNA 8.6 MG TAB PO ONE (11:33)
--- NOTE | 2020-10-06 12:36 | Gastroenterology Progress Note ---
Date of Service October 06, 2020 Assessment & Plan (1) Acute pancreatitis: -Ok to do clear liquids -Ok to trend lipase, but would favor following clinical picture (2) Gastritis and duodenitis: -Continue IV Protonix 40 mg BID -Carafate 1 gm four times daily before meals at bedtime -Avoid NSAIDs -If no improvement, can consider repeating EGD though this was done in July 2020 (3) Constipation: -Miralax 17 gm BID -Senna once daily -Colace 100 mg BID Admission and Anticipated Discharge Date Admission Date: October 05, 2020 Supervising Physician Co-Signing Physician Notes Agree with DANA Kraft as above Abd: Soft, tender LUQ, ND, +BS Continue current therapy MRCP negative, but still with duodenitis. Recommend EGD in AM for further evaluation. Subjective Patient is a 75 yo male with duodenitis vs pancreatitis. Patient reporting persistent symptoms of nausea. He notes lower abdominal cramping today relieved with Zofran. Reports constipation. Patient is on BID PPI therapy and QID Carafate. Review of Systems Constitutional: no fever and no chills Respiratory: no problem reported Gastrointestinal: + abdominal pain, + nausea and + constipation Physical Exam Constitutional: well developed Respiratory: normal respiratory effort Cardiovascular: Extremities: no edema Gastrointestinal (Abdomen): Inspection/Auscultation: abdomen normal to inspection and normal bowel sounds Percussion/Palpation: + abdomen tender (left sided abdominal pain) Psychiatric: A+Ox3, euthymic affect Results & Data Results & Data ([facility]) Vital Signs (Past 12 Hours) Vital Signs Temp Pulse Resp BP Pulse Ox 10/06/20 09:56 76 111/69 96 10/06/20 07:26 36.8 C 84 20 124/72 98 PG Care Time/CCT Total # of Minutes Spent Total Time Spent with Patient: Total time spent is greater than 50% in coordination of care (as documented) at patient's floor/unit and/or counseling patient: Coding Level of Care Code 79875 Subseq Hosp Care Lvl 3 Diagnoses Acute pancreatitis K85.30 Acute pancreatitis complication: no infection or necrosis Pancreatitis type: drug induced Gastritis and duodenitis K29.90 Constipation K59.00 (1) Acute pancreatitis Acute pancreatitis complication: no infection or necrosis Pancreatitis type: drug induced Qualified Code(s): K85.30 - Drug induced acute pancreatitis without necrosis or infection
[2020-10-06] MEDS: SENNA 8.6 MG TAB PO SCH (12:50)
[2020-10-06] MEDS: DOCUSATE SODIUM 100 MG CAP PO SCH ×2 (13:37→19:41)
[2020-10-06] MEDS: POLYETHYLENE (MIRALAX) 17 GM PACK PO SCH ×2 (13:38→19:41)
[2020-10-06] MEDS ORDERED: ANUSOL SUPP 1 EA PR PRN (14:06)
--- NOTE | 2020-10-06 14:39 | Magnetic Resonance Report ---
MRCP CLINICAL HISTORY: Elevated pancreatic enzymes. Left-sided abdominal pain. Weight loss. COMPARISON STUDY: Abdominal CT dated 10/05/2020. TECHNIQUE: Abdominal MRCP is performed utilizing various T2-weighted sequence is in the axial and cor onal planes. IV contrast was not administered for this examination. 3-D reformats are created and ass essed. The examination is significantly compromised by motion artifact. FINDINGS: The gallbladder is mildly distended but otherwise normal in appearance. There is no gallbladder wall thickening or surrounding inflammation. No gallstones are identified. There is no intra- or extrahepa tic biliary ductal dilatation. The common bile duct measures up to 3.5 mm in diameter. No intralumina l filling defects are identified to suggest choledocholithiasis. The pancreatic duct is normal in tanner iber. A 10 mm cystic focus in the pancreatic neck is unchanged and typical for a sidebranch IPMN. The unenhanced liver, spleen, adrenal glands, and kidneys are grossly normal. There is a large inflam matory process centered around the proximal duodenum which appears thick walled and edematous. There is trace surrounding fluid. The inflammation also involves the head of the pancreas. There is no evid ence of bowel obstruction. No lymphadenopathy is identified. The abdominal aorta is normal in caliber . No pleural effusion is seen. The bony structures are normal as visualized. IMPRESSION: 1. Normal MRCP. 2. There is a marked inflammatory process centered around the duodenum, and a primary duodenal proces s such as duodenitis or possibly ulcer disease is favored. This could be further assessed with endosc opy, if clinically warranted. 3. The inflammatory process involves the head of the pancreas, and although considered less likely, a groove pancreatitis is a differential consideration. Dictated: 10/06/2020 1:52 PM Transcribed: 10/06/2020 2:12 PM Sadia [id number] [facility] Electronically signed by: Estevan Chavez M.D. 10/06/2020 2:38 PM
[2020-10-06] MEDS: LORazepam 1 MG TAB PO PRN (15:33)
--- NOTE | 2020-10-06 16:59 | Hospitalist Progress Note ---
Date of Service October 06, 2020 Assessment & Plan (1) Gastritis: Patient presents with abdominal discomfort significant weight loss and nausea. Diagnosed with both Crohn's disease and celiac disease. Recently had endoscopy in July 2020 showing gastritis and duodenitis. Protonix plus Carafa te Patient does have persistent elevation of lipase to 800's tolerating clear diet MRCP IMPRESSION:1. Normal MRCP. 2. There is a marked inflammatory process centered around the duodenum, and a primary duodenal process such as duodenitis or possibly ulcer disease is favored. This could be further assessed with endoscopy, if clinically warranted. 3. The inflammatory process involves the head of the pancreas, and although considered less likely, a groove pancreatitis is a differential consideration. (2) CAD (coronary artery disease): Patient typically in aspirin atorvastatin this will be held at this time metoprolol succinate will be continued (3) Dyslipidemia: (4) Idiopathic polyneuropathy: Seems to be stable at this time (5) DVT prophylaxis: Chemoprophylaxis is on hold [facility] Admission and Anticipated Discharge Date Admission Date: October 05, 2020 Subjective Patient is a 75 yo male with duodenitis and persistent pancreatitis. Patient reporting persistent symptoms of nausea. He notes lower abdominal cramping today relieved with Zofran. Reports constipation. Patient is on BID PPI therapy and QID Carafate. Review of Systems Review of Systems: Mild distress and fatigue no headache, no visual changes no speech or swallowing issues no chest pain, pressure or palpitations no shortness of breath, cough or wheezes no abdominal pain, nausea or vomiting, diarrhea or constipation no dysuria, hematuria or frequency no focal joint pain or swelling no back pain, CVA tenderness or radicular pain no bruising, bleeding or rashes no focal signs of weakness or numbness or altered sensation no complaints of anxiety or depression.. Physical Exam Physical Exam: The patient appeared well nourished and normally developed. Vital signs as documented. Head exam is normocephalic atraumatic Neck is without JVD, thyromegaly, or carotid bruits. Lungs are clear to auscultation, no focal loss of breath sounds Cardiac exam, Rhythm is regular.. No murmurs, rubs or gallops. Abdominal exam reveals normal bowel sounds, soft non tender, no masses Extremities are nonedematous and both pedal pulses are present Neurologic exam is alert and oriented, no focal loss of strength or sensation Skin is without bruises or rashes Psychologically is without concerns for anxiety or depression Results & Data Results & Data ([facility]) Vital Signs (Past 12 Hours) Vital Signs Temp Pulse Resp BP Pulse Ox 10/06/20 09:56 76 111/69 96 10/06/20 07:26 98.2 F 84 20 124/72 98 PG Care Time/CCT Total # of Minutes Spent Total Time Spent with Patient: Total time spent is greater than 50% in coordination of care (as documented) at patient's floor/unit and/or counseling patient: Coding Level of Care Code 66094 Subseq Hosp Care Lvl 2 Diagnoses Gastritis K29.70 CAD (coronary artery disease) I25.10 Dyslipidemia E78.5 Idiopathic polyneuropathy G60.9 DVT prophylaxis Z29.9
[2020-10-07] MEDS: LACTATED RINGER'S 1,000 ML IV SCH ×3 (03:29→17:35)
[2020-10-07] MEDS: ONDANSETRON INJ 2 MG/ML 2 ML VIAL IV PRN ×2 (06:32→16:19)
[2020-10-07 07:24] LABS: Hemoglobin 13.4 g/dL (14.0-18.0); Mean Corpuscular Hgb Conc 32.7 g/dL (32-36); Mean Corpuscular Volume 91.9 fL (80-100); Mean Platelet Volume 9.7 fL (7.4-10.4); Platelet Count 204 K/uL (130-400); RDW Coefficient of Variation 13.8 % (11.5-14.5); Red Blood Count 4.46 M/uL (4.7-6.1); White Blood Count 6.72 K/uL (4.8-10.8)
[2020-10-07 07:25] LABS: BUN Creatinine Ratio 11.4 (10-20); Calcium 8.9 mg/dl (8.5-10.1); Creatinine Clr Calc Pharmacy 79.8 ml/min; Est GFR (African American) 104.4 ml/min; Est GFR (Non-African American) 90.1 ml/min; Magnesium 2.1 mg/dl (1.8-2.4); Potassium 3.7 mmol/L (3.5-5.1)
[2020-10-07] MEDS: LORazepam 1 MG TAB PO PRN ×2 (08:38→22:46)
[2020-10-07] MEDS: PANTOprazole 40 MG in SYRINGE 0 ML IV SCH ×2 (08:42→19:55)
[2020-10-07] MEDS ORDERED: PROPOFOL IV EMULSION 10 MG/ML 20 ML VIAL IV ONE (08:59)
[2020-10-07] MEDS ORDERED: LIDOCAINE 2% 2 ML VIAL/AMP(20MG/ML) INFIL ONE (08:59)
--- NOTE | 2020-10-07 09:08 | Gastroenterology Progress Note ---
Date of Service October 07, 2020 Assessment & Plan (1) Gastritis and duodenitis: (2) Left sided abdominal pain: Continue current therapy Proceed with EGD today. Admission and Anticipated Discharge Date Admission Date: October 05, 2020 Subjective With continued Left sided abdominal pain. He describes it as achy and associated with nausea this AM. Relieved with Zofran and Narcotic analgesia. He states he is frustrated with progress at present. Physical Exam Constitutional: WD/WN, vitals as above Respiratory: normal respiratory effort, lungs clear to auscultation Cardiovascular: RRR, no murmur, no edema Gastrointestinal (Abdomen): Inspection/Auscultation: abdomen normal to inspection and normal bowel sounds; abdomen not distended Percussion/Palpation: + abdomen tender and abdomen soft Results & Data Results & Data ([facility]) Vital Signs (Past 12 Hours) Vital Signs Temp Pulse Pulse Resp BP Pulse Ox 10/07/20 08:50 36.7 C 72 18 127/77 95 10/07/20 07:15 36.7 C 76 18 128/77 97 10/06/20 22:35 36.9 C 68 18 99/61 L 97 PG Care Time/CCT Total # of Minutes Spent Total Time Spent with Patient: Total time spent is greater than 50% in coordination of care (as documented) at patient's floor/unit and/or counseling patient: Coding Level of Care Code None Diagnoses Gastritis and duodenitis K29.90 Left sided abdominal pain R10.9
--- NOTE | 2020-10-07 09:30 | GI REPORT ---
Patient Name: Inder Alvarez Procedure Date: 10/07/2020 8:55 AM Date of : 1945 Admit Type: Inpatient Age: 75 Gender: Male Attending MD: Edwin Rizzo DO Procedure: Upper GI endoscopy Providers: Edwin Rizzo DO Referring MD: Escobar Fox Indications: Abdominal pain in the left upper quadrant, Abnormal CT of the GI tract Medicines: Monitored Anesthesia Care Complications: No immediate complications. Estimated Blood Loss: Estimated blood loss: none. Procedure: Pre-Anesthesia Assessment: - Prior to the procedure, a History and Physical was performed, and patient medications and allergies were reviewed. The patient's tolerance of previous anesthesia was also reviewed. The risks and benefits of the procedure and the sedation options and risks were discussed with the patient. All questions were answered, and informed consent was obtained. Prior Anticoagulants: The patient has taken no previous anticoagulant or antiplatelet agents except for aspirin. ASA Grade Assessment: III - A patient with severe systemic disease. After reviewing the risks and benefits, the patient was deemed in satisfactory condition to undergo the procedure. After obtaining informed consent, the endoscope was passed under direct vision. Throughout the procedure, the patient's blood pressure, pulse, and oxygen saturations were monitored continuously. The Endoscope was introduced through the mouth, and advanced to the second part of duodenum. The upper GI endoscopy was accomplished without difficulty. The patient tolerated the procedure well. Findings: The esophagus was normal. Diffuse moderate inflammation characterized by erosions and erythema was found in the entire examined stomach. Biopsies were taken with a cold forceps for histology. Patchy mildly erythematous mucosa without active bleeding and with no stigmata of bleeding was found in the duodenal bulb. Biopsies were taken with a cold forceps for histology. Impression: - Normal esophagus. - Gastritis. Biopsied. - Erythematous duodenopathy. Biopsied. Recommendation: - Resume previous diet. - Continue present medications. - Await pathology results. - Return to primary care physician as previously scheduled. Edwin Rizzo DO 10/07/2020 9:29:39 AM This report has been signed electronically. Note Initiated On: 10/07/2020 8:55 AM Number of Addenda: 0 I attest to the content of the Intraoperative Record and orders documented therein, exceptions below {[id number]}
--- NOTE | 2020-10-07 09:41 | Anesthesiology Progress Note ---
Date of Service October 07, 2020 Anesthesia Post Procedure Vital Signs Vital Signs: Temp Pulse Pulse Resp BP Pulse Ox 10/07/20 09:30 36.7 C 76 16 90/57 L 95 10/07/20 08:50 36.7 C 72 18 127/77 95 10/07/20 07:15 36.7 C 76 18 128/77 97 10/06/20 22:35 36.9 C 68 18 99/61 L 97 10/06/20 16:00 36.4 C L 67 20 120/70 98 10/06/20 09:56 76 111/69 96 Pain Intensity Abdomen: Pain Intensity: 7 Transfer of Care Handoff Completed per policy Notes Mental Status: alert / awake / arousable and participated in evaluation Patient Amnestic to Procedure: Yes Nausea / Vomiting: adequately controlled Pain: adequately controlled Airway Patency, RR, SpO2: stable & adequate BP & HR: stable & adequate Hydration State: stable & adequate Anesthetic Complications: no major complications apparent and Pt Satisfied with anesthetic care
[2020-10-07] MEDS: SUCRALFATE 1 GM/10 ML UDC PO SCH ×4 (10:31→19:55)
[2020-10-07] MEDS: DOCUSATE SODIUM 100 MG CAP PO SCH ×2 (10:32→19:55)
[2020-10-07] MEDS: MAGNESIUM OXIDE 400 MG TAB PO SCH ×2 (10:32→19:55)
[2020-10-07] MEDS: METOPROLOL SUCC 25MG EXT REL TAB PO SCH (10:32)
[2020-10-07] MEDS: SENNA 8.6 MG TAB PO SCH (10:32)
[2020-10-07] MEDS: POLYETHYLENE (MIRALAX) 17 GM PACK PO SCH ×2 (10:34→19:55)
[2020-10-07] MEDS: FAMOTIDINE 20 MG in SYRINGE 3 ML IV SCH ×2 (11:17→19:55)
--- NOTE | 2020-10-07 16:30 | Hospitalist Progress Note ---
Date of Service October 07, 2020 Assessment & Plan (1) Gastritis: Patient presents with abdominal discomfort significant weight loss and nausea. Diagnosed with both Crohn's disease and celiac disease. Recently had endoscopy in July 2020 showing gastritis and duodenitis. Protonix pepcid plus Carafate Patient does have persistent elevation of lipase to 800's now 800 3 days in a row will make npo x ice and meds, MRCP IMPRESSION:1. Normal MRCP. 2. There is a marked inflammatory process centered around the duodenum, and a primary duodenal process such as duodenitis or possibly ulcer disease is favored. This could be further assessed with endoscopy, if clinically warranted. 3. The inflammatory process involves the head of the pancreas, and although considered less likely, a groove pancreatitis is a differential consideration. (2) CAD (coronary artery disease): Patient typically in aspirin atorvastatin this will be held at this time metoprolol succinate will be continued (3) Dyslipidemia: (4) Idiopathic polyneuropathy: Seems to be stable at this time (5) DVT prophylaxis: Chemoprophylaxis is on hold patient will have SCDs Admission and Anticipated Discharge Date Admission Date: October 05, 2020 Subjective With continued Left sided abdominal pain. He describes it as achy and associated with nausea this AM. Relieved with Zofran and Narcotic analgesia. Pt did have EGD with only inflamation seen and lipase seems parked at 800, will make npo and continues on pepcid, protonix and carafate Review of Systems Review of Systems: Mild distress and fatigue no headache, no visual changes no speech or swallowing issues no chest pain, pressure or palpitations no shortness of breath, cough or wheezes abdominal pain luq and some suprapubic tenderness/crampyness no dysuria, hematuria or frequency no focal joint pain or swelling no back pain, CVA tenderness or radicular pain no bruising, bleeding or rashes no focal signs of weakness or numbness or altered sensation no complaints of anxiety or depression.. Physical Exam Physical Exam: The patient appeared well nourished and normally developed. Vital signs as documented. Head exam is normocephalic atraumatic Neck is without JVD, thyromegaly, or carotid bruits. Lungs are clear to auscultation, no focal loss of breath sounds Cardiac exam, Rhythm is regular.. No murmurs, rubs or gallops. Abdominal exam reveals normal bowel sounds, soft non tender, no masses Extremities are nonedematous and both pedal pulses are present Neurologic exam is alert and oriented, no focal loss of strength or sensation Skin is without bruises or rashes Psychologically is without concerns for anxiety or depression Results & Data Results & Data ([facility]) Vital Signs (Past 12 Hours) Vital Signs Temp Pulse Pulse Resp BP Pulse Ox 10/07/20 15:32 98.1 F 71 18 110/65 96 10/07/20 13:25 98.4 F 70 18 108/62 97 10/07/20 12:25 98.2 F 69 18 121/77 96 10/07/20 11:25 98.4 F 73 18 121/77 96 10/07/20 10:55 97.7 F 73 73 16 132/82 96 10/07/20 10:26 97.7 F 73 77 16 117/70 97 10/07/20 10:00 80 16 109/62 97 10/07/20 09:30 98.1 F 76 16 90/57 L 95 10/07/20 08:50 98.1 F 72 18 127/77 95 10/07/20 07:15 98.1 F 76 18 128/77 97 PG Care Time/CCT Total # of Minutes Spent Total Time Spent with Patient: Total time spent is greater than 50% in coordination of care (as documented) at patient's floor/unit and/or counseling patient: Coding Level of Care Code 19400 Subseq Hosp Care Lvl 2 Diagnoses Gastritis K29.70 CAD (coronary artery disease) I25.10 Dyslipidemia E78.5 Idiopathic polyneuropathy G60.9 DVT prophylaxis Z29.9
[2020-10-07] MEDS: MoRPHine SULFATE 2 MG/ML CARP IV PRN (19:56)
[2020-10-08] MEDS: LACTATED RINGER'S 1,000 ML IV SCH ×3 (02:01→17:32)
[2020-10-08] MEDS: PANTOprazole 40 MG in SYRINGE 0 ML IV SCH ×2 (07:58→20:23)
[2020-10-08] MEDS: FAMOTIDINE 20 MG in SYRINGE 3 ML IV SCH ×2 (07:58→20:22)
[2020-10-08] MEDS: SUCRALFATE 1 GM/10 ML UDC PO SCH ×4 (07:58→20:22)
[2020-10-08] MEDS: MAGNESIUM OXIDE 400 MG TAB PO SCH ×2 (07:59→20:22)
[2020-10-08] MEDS: SENNA 8.6 MG TAB PO SCH (07:59)
[2020-10-08] MEDS: METOPROLOL SUCC 25MG EXT REL TAB PO SCH (07:59)
[2020-10-08] MEDS: DOCUSATE SODIUM 100 MG CAP PO SCH ×2 (07:59→20:22)
[2020-10-08] MEDS: POLYETHYLENE (MIRALAX) 17 GM PACK PO SCH ×2 (08:04→20:23)
[2020-10-08] MEDS: LORazepam 1 MG TAB PO PRN ×2 (09:05→18:42)
[2020-10-08 10:10] LABS: Albumin Level 3.3 gm/dl (3.4-5.0); BUN Creatinine Ratio 8.8 (10-20); Bilirubin Direct 0.3 mg/dl (0-0.2); Calcium 9.3 mg/dl (8.5-10.1); Creatinine Clr Calc Pharmacy 74.6 ml/min; Est GFR (African American) 101.6 ml/min; Est GFR (Non-African American) 87.7 ml/min; Magnesium 2.1 mg/dl (1.8-2.4); Potassium 3.5 mmol/L (3.5-5.1)
[2020-10-08 10:13] LABS: Bilirubin,Total 0.9 mg/dl (0.2-1); Total Protein 6.8 gm/dl (6.4-8.2)
[2020-10-08] MEDS: MoRPHine SULFATE 2 MG/ML CARP IV PRN (12:15)
--- NOTE | 2020-10-08 12:29 | Gastroenterology Progress Note ---
Date of Service October 08, 2020 Assessment & Plan Admission and Anticipated Discharge Date Admission Date: October 05, 2020 Subjective Patient was seen and examined today, he feels much better. EGD yesterday with no significant pathology. Follows as OP with [facility] for Crohn's disease. Labs reviewed. Recommend: Advance diet as tolerated. Follow up as OP with . Recall Gi if needed. Results & Data ([facility]) Vital Signs (Past 12 Hours) Vital Signs Temp Pulse Resp BP Pulse Ox 10/08/20 07:29 37.0 C 95 H 18 148/81 H 98
--- NOTE | 2020-10-08 15:07 | Hospitalist Progress Note ---
Date of Service October 08, 2020 Assessment & Plan (1) Gastritis: Patient presents with abdominal discomfort significant weight loss and nausea. Diagnosed with both Crohn's disease and celiac disease. Recently had endoscopy in July 2020 showing gastritis and duodenitis. Protonix pepcid plus Carafate Patient does have persistent elevation of lipase to 800's now 800 3 days in a row is finally reduced after making him n.p.o. except for ice chips and meds to 600 level. We will keep him n.p.o. for an additional day and if his lipase trends downward initiate feeding on 10/09/2020. MRCP IMPRESSION:1. Normal MRCP. 2. There is a marked inflammatory process centered around the duodenum, and a primary duodenal process such as duodenitis or possibly ulcer disease is favored. This could be further assessed with endoscopy, if clinically warranted. 3. The inflammatory process involves the head of the pancreas, and although considered less likely, a groove pancreatitis is a differential consideration. Endoscopy performed on 10/07/[address] Hope esophagus. Diffuse moderate inflammation characterized by erosions and erythema were found in the entire examined stomach biopsies were taken. Patchy mildly erythematous mucosa without active bleeding and with no stigmata of bleeding was found in the duodenal bulb. Biopsies were taken. (2) CAD (coronary artery disease): Patient typically in aspirin atorvastatin this will be held at this time metoprolol succinate will be continued (3) Dyslipidemia: (4) Idiopathic polyneuropathy: Seems to be stable at this time (5) DVT prophylaxis: Chemoprophylaxis with active bleeding will be initiated Lovenox 40 mg once a day Admission and Anticipated Discharge Date Admission Date: October 05, 2020 Subjective Patient was seen by GI recommended advancement of labs. However today the first is lipase is reduced and the patient's been without symptoms of that was after keeping him n.p.o. for 24 hours. Subsequently we are to keep him n.p.o. for now until the morning to continue to corroborate his lipase trending downward and then initiate feeding tomorrow. GI has signed off at this point time. Review of Systems Review of Systems: Mild distress and fatigue no headache, no visual changes no speech or swallowing issues no chest pain, pressure or palpitations no shortness of breath, cough or wheezes abdominal pain luq is mild and resolution of previous upper abdominal tenderness no dysuria, hematuria or frequency no focal joint pain or swelling no back pain, CVA tenderness or radicular pain no bruising, bleeding or rashes no focal signs of weakness or numbness or altered sensation no complaints of anxiety or depression.. Physical Exam Physical Exam: The patient appeared well nourished and normally developed. Vital signs as documented. Head exam is normocephalic atraumatic Neck is without JVD, thyromegaly, or carotid bruits. Lungs are clear to auscultation, no focal loss of breath sounds Cardiac exam, Rhythm is regular.. No murmurs, rubs or gallops. Abdominal exam reveals normal bowel sounds, soft non tender, no masses Extremities are nonedematous and both pedal pulses are present Neurologic exam is alert and oriented, no focal loss of strength or sensation Skin is without bruises or rashes Psychologically is without concerns for anxiety or depression Results & Data Results & Data ([facility]) Vital Signs (Past 12 Hours) Vital Signs Temp Pulse Resp BP Pulse Ox 10/08/20 07:29 98.6 F 95 H 18 148/81 H 98 PG Care Time/CCT Total # of Minutes Spent Total Time Spent with Patient: Total time spent is greater than 50% in coordination of care (as documented) at patient's floor/unit and/or counseling patient: Coding Level of Care Code 86207 Subseq Hosp Care Lvl 2 Diagnoses Gastritis K29.70 CAD (coronary artery disease) I25.10 Dyslipidemia E78.5 Idiopathic polyneuropathy G60.9 DVT prophylaxis Z29.9
--- NOTE | 2020-10-08 17:26 | Hospitalist Progress Note ---
Date of Service October 08, 2020 Assessment & Plan (1) Gastritis: Patient presents with abdominal discomfort significant weight loss and nausea. Diagnosed with both Crohn's disease and celiac disease. Recently had endoscopy in July 2020 showing gastritis and duodenitis. Protonix pepcid plus Carafate Patient does have persistent elevation of lipase to 800's now 800 3 days in a row is finally reduced after making him n.p.o. except for ice chips and meds to 600 level. We will keep him n.p.o. for an additional day and if his lipase trends downward initiate feeding on 10/09/2020. MRCP IMPRESSION:1. Normal MRCP. 2. There is a marked inflammatory process centered around the duodenum, and a primary duodenal process such as duodenitis or possibly ulcer disease is favored. This could be further assessed with endoscopy, if clinically warranted. 3. The inflammatory process involves the head of the pancreas, and although considered less likely, a groove pancreatitis is a differential consideration. Endoscopy performed on 10/07/[address] Hope esophagus. Diffuse moderate inflammation characterized by erosions and erythema were found in the entire examined stomach biopsies were taken. Patchy mildly erythematous mucosa without active bleeding and with no stigmata of bleeding was found in the duodenal bulb. Biopsies were taken. BMI 19.6 kg/m*m, moderate malnutrition (2) CAD (coronary artery disease): Patient typically in aspirin atorvastatin this will be held at this time metoprolol succinate will be continued (3) Dyslipidemia: (4) Idiopathic polyneuropathy: Seems to be stable at this time (5) DVT prophylaxis: Chemoprophylaxis with active bleeding will be initiated Lovenox 40 mg once a day Admission and Anticipated Discharge Date Admission Date: October 05, 2020 Results & Data Results & Data ([facility]) Vital Signs (Past 12 Hours) Vital Signs Temp Pulse Resp BP Pulse Ox 10/08/20 16:42 97.7 F 91 H 16 132/71 97 10/08/20 07:29 98.6 F 95 H 18 148/81 H 98 PG Care Time/CCT Total # of Minutes Spent Total Time Spent with Patient: Total time spent is greater than 50% in coordination of care (as documented) at patient's floor/unit and/or counseling patient: Coding Level of Care Code None Diagnoses Gastritis K29.70 CAD (coronary artery disease) I25.10 Dyslipidemia E78.5 Idiopathic polyneuropathy G60.9 DVT prophylaxis Z29.9
[2020-10-08] MEDS: ENOXAPARIN INJ 40 MG/0.4 ML SYR SQ SCH (20:23)
[2020-10-09] MEDS: LACTATED RINGER'S 1,000 ML IV SCH ×3 (02:04→17:30)
[2020-10-09 07:18] LABS: BUN Creatinine Ratio 13.9 (10-20); Creatinine Clr Calc Pharmacy 88.2 ml/min; Est GFR (African American) 108.8 ml/min; Est GFR (Non-African American) 93.9 ml/min
[2020-10-09] MEDS: ONDANSETRON INJ 2 MG/ML 2 ML VIAL IV PRN (07:51)
[2020-10-09] MEDS: FAMOTIDINE 20 MG in SYRINGE 3 ML IV SCH (08:35)
[2020-10-09] MEDS: MAGNESIUM OXIDE 400 MG TAB PO SCH ×2 (08:36→20:26)
[2020-10-09] MEDS: PANTOprazole 40 MG in SYRINGE 0 ML IV SCH (08:36)
[2020-10-09] MEDS: METOPROLOL SUCC 25MG EXT REL TAB PO SCH (08:36)
[2020-10-09] MEDS: SENNA 8.6 MG TAB PO SCH (08:36)
[2020-10-09] MEDS: SUCRALFATE 1 GM/10 ML UDC PO SCH ×4 (08:37→20:26)
[2020-10-09] MEDS: DOCUSATE SODIUM 100 MG CAP PO SCH ×2 (08:37→20:24)
[2020-10-09] MEDS: POLYETHYLENE (MIRALAX) 17 GM PACK PO SCH (08:37)
[2020-10-09 09:25] LABS: Hematocrit (blood only) 39.2 % (42-52); Hemoglobin 13.1 g/dL (14.0-18.0); Mean Corpuscular Hemoglobin 29.2 pg (25-34); Mean Corpuscular Hgb Conc 33.4 g/dL (32-36); Mean Corpuscular Volume 87.5 fL (80-100); Mean Platelet Volume 9.4 fL (7.4-10.4); Platelet Count 227 K/uL (130-400); RDW Coefficient of Variation 13.6 % (11.5-14.5); RDW Standard Deviation 43.9 fL (36.4-46.3); Red Blood Count 4.48 M/uL (4.7-6.1); White Blood Count 6.83 K/uL (4.8-10.8)
[2020-10-09] MEDS: LORazepam 1 MG TAB PO PRN ×2 (15:05→22:53)
[2020-10-09 15:58] LABS: Potassium 4.2 mmol/L (3.5-5.1)
--- NOTE | 2020-10-09 17:21 | Hospitalist Progress Note ---
Date of Service October 09, 2020 Assessment & Plan (1) Gastritis: Patient presents with abdominal discomfort significant weight loss and nausea. Diagnosed with both Crohn's disease and celiac disease. Recently had endoscopy in July 2020 showing gastritis and duodenitis. Protonix pepcid plus Carafate Patient does have persistent elevation of lipase to 800's now 800 3 days in a row is finally reduced after making him n.p.o. except for ice chips and meds to 600 level. He has no epigastric pain however and imaging more consistent with duodenitis (+/- mercaptopurine) which I suspect if elevating his lipase rather than a true acute pancreatitis. Duodenitiis possibly secondary to celiac (immunoglobulins pending to see if he is managing to stick to a gluten free diet) vs. aspirin/mercaptopurine use. Advance diet as tolerated. MRCP IMPRESSION: 1. Normal MRCP. 2. There is a marked inflammatory process centered around the duodenum, and a primary duodenal process such as duodenitis or possibly ulcer disease is favored. This could be further assessed with endoscopy, if clinically w arranted. 3. The inflammatory process involves the head of the pancreas, and although considered less likely, a groove pancreatitis is a differential consideration. Endoscopy performed on 10/07/[address] Hope esophagus. Diffuse moderate inflammation characterized by erosions and erythema were found in the entire examined stomach biopsies were taken. Patchy mildly erythematous mucosa without active bleeding and with no stigmata of bleeding was found in the duodenal bulb. Biopsies were taken. BMI 19.6 kg/m*m, moderate malnutrition (2) Left sided abdominal pain: This appears to be more consistent with his constipation than pancreatitis/duodenitis. Improved with miralax and Sennakot and now he wishes to reduce Miralax to once daily. (3) CAD (coronary artery disease): Patient typically in aspirin atorvastatin this will be held at this time metoprolol succinate will be continued (4) Dyslipidemia: (5) Idiopathic polyneuropathy: Seems to be stable at this time (6) DVT prophylaxis: Lovenox 40 mg once a day Admission and Anticipated Discharge Date Admission Date: October 05, 2020 Subjective Reports improvement with nausea and LLQ abdominal pain since admission. Now tolerating clear liquid diet this morning and feels he can move on to more solid food. Long discussion regarding possible etiologies of his symptoms. Review of Systems Review of Systems: All systems reviewed & are unremarkable except as noted in HPI & below Physical Exam Constitutional: well developed, + thin and + frail appearing; + not well nourished and no acute distress Eyes: + anicteric sclerae Respiratory: normal respiratory effort, lungs clear to auscultation Cardiovascular: RRR, no murmur, no edema Gastrointestinal (Abdomen): Inspection/Auscultation: abdomen normal to inspection and normal bowel sounds; abdomen not distended Percussion/Palpation: + abdomen tender (mild LLQ) and abdomen soft; no guarding and abdomen not rigid Musculoskeletal: no cyanosis or clubbing, extremities motor strength 5/5 Skin: no rashes, warm and dry Neurologic: moves all extremities and awake; not confused Psychiatric: A+Ox3, euthymic affect Results & Data Results & Data ([facility]) Vital Signs (Past 12 Hours) Vital Signs Temp Pulse Resp BP Pulse Ox 10/09/20 06:30 36.6 C 73 19 142/73 H 96 PG Care Time/CCT Total # of Minutes Spent Total Time Spent with Patient: Total time spent is greater than 50% in coordin ation of care (as documented) at patient's floor/unit and/or counseling patient: Coding Level of Care Code 55962 Subseq Hosp Care Lvl 2 Diagnoses Gastritis K29.70 Left sided abdominal pain R10.9 CAD (coronary artery disease) I25.10 Dyslipidemia E78.5 Idiopathic polyneuropathy G60.9 DVT prophylaxis Z29.9
[2020-10-09] MEDS: FAMOTIDINE 20 MG TAB PO SCH (20:25)
[2020-10-09] MEDS: ENOXAPARIN INJ 40 MG/0.4 ML SYR SQ SCH (20:25)
[2020-10-09] MEDS: PANTOprazole 40 MG TAB PO SCH (20:26)
[2020-10-10] MEDS: LACTATED RINGER'S 1,000 ML IV SCH (01:09)
[2020-10-10] MEDS ORDERED: ACETAMINOPHEN 325 MG TAB PO PRN (05:53)
[2020-10-10] MEDS: SUCRALFATE 1 GM/10 ML UDC PO SCH ×2 (07:13→11:34)
[2020-10-10 08:26] LABS: BUN Creatinine Ratio 9.7 (10-20); Calcium 9.1 mg/dl (8.5-10.1); Creatinine Clr Calc Pharmacy 64.7 ml/min; Est GFR (African American) 95.8 ml/min; Est GFR (Non-African American) 82.7 ml/min; Potassium 3.8 mmol/L (3.5-5.1)
[2020-10-10] MEDS: PANTOprazole 40 MG TAB PO SCH (08:39)
[2020-10-10] MEDS: DOCUSATE SODIUM 100 MG CAP PO SCH (08:39)
[2020-10-10] MEDS: MAGNESIUM OXIDE 400 MG TAB PO SCH (08:39)
[2020-10-10] MEDS: METOPROLOL SUCC 25MG EXT REL TAB PO SCH (08:39)
[2020-10-10] MEDS: FAMOTIDINE 20 MG TAB PO SCH (08:39)
[2020-10-10] MEDS ORDERED: POLYETHYLENE (MIRALAX) 17 GM PACK PO SCH (09:00)
--- NOTE | 2020-10-10 11:56 | Discharge Summary ---
Date of Service October 10, 2020 Admission HPI Per Admitting Provider 75-year-old male presents with abdominal pain and recent weight loss to emergency department. Patient with recent endoscopy August 04, [address] Delaney at that time gastritis was seen. Seen by his PCP and may following up for Crohn's and celiac disease that time he was started on 6-MP. There is also discussion of the PCP note regarding mental status including a neuro evaluation MRI of his brain and the use of lorazepam 1 mg 3 times daily. In the ER he is unable to tolerate oral intake labs are stable CT scan was only suggestive of colitis and duodenitis. Patient has had no increased diarrhea or change in kusum wel habits consistent with a lower bowel inflammation such as consideration for his Crohn's or celiac. 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 Admission Exam Per Admitting Provider Physical Exam: The patient appeared well nourished and normally developed. Vital signs as documented. Head exam is normocephalic atraumatic Neck is without JVD, thyromegaly, or carotid bruits. Lungs are clear to auscultation, no focal loss of breath sounds Cardiac exam, Rhythm is regular.. No murmurs, rubs or gallops. Abdominal exam reveals normal bowel sounds, soft non tender, no masses Extremities are nonedematous and both pedal pulses are present Neurologic exam is alert and oriented, no focal loss of strength or sensation Skin is without bruises or rashes Psychologically is without concerns for anxiety or depression Principal Diagnosis Duodenitis Gastritis Constipation Discharge Exam Constitutional well developed, + thin and + frail appearing; + not well nourished and no acute distress Eyes + anicteric sclerae Respiratory normal respiratory effort, lungs clear to auscultation Cardiovascular RRR, no murmur, no edema Gastrointestinal (Abdomen) Inspection/Auscultation: abdomen normal to inspection and normal bowel sounds; abdomen not distended Percussion/Palpation: + abdomen tender (mild LLQ) and abdomen soft; no guarding and abdomen not rigid Musculoskeletal no cyanosis or clubbing, extremities motor strength 5/5 Skin no rashes, warm and dry Neurologic moves all extremities and awake; not confused Psychiatric A+Ox3, euthymic affect Discharge Data Allergies Allergy/AdvReac Type Severity Reaction Status Date / Time tamsulosin Allergy Intermediate SYNCOPE Verified 10/11/20 10:21 doxycycline Allergy Unknown UNKNOWN Verified 10/11/20 10:21 gluten Allergy Unknown Gastrointestinal Verified 10/11/20 10:21 Upset Consultations 10/05/20 07:17 ED Decision to Admit Stat 10/05/20 08:03 Consult Gastroenterology Stat 10/05/20 10:34 Consult Gastroenterology Routine Procedures Performed Operation Date: 10/07/20 16:30 Actual Procedures p EGD Biopsy Cytology - Edwin Camarena. Case, DO Ordered Studies 10/05/20 04:45 CT abd pelvis IV con only Urgent IMPRESSION: 1. Inflammatory changes surrounding first portion of duodenum which shows mucosal enhancement and wall thickening which could represent duodenitis. No definite cholecystitis or gastritis seen however cannot be completely ruled out. 2. Moderate amount of stool within colonic loops, constipation pattern. 3. Atherosclerosis. 4. Mild enlargement of prostate gland. Overdistended urinary bladder. 5. Diverticulosis of sigmoid colon without evidence of diverticulitis. 6. Fluid-filled abdominal reservoir of penile implant is seen within left lower quadrant, in the region of pain without definite surrounding inflammatory changes. 10/06/20 11:29 MR MRCP Routine IMPRESSION: 1. Normal MRCP. 2. There is a marked inflammatory process centered around the duodenum, and a primary duodenal process such as duodenitis or possibly ulcer disease is favored. This could be further assessed with endoscopy, if clinically warranted. 3. The inflammatory process involves the head of the pancreas, and although considered less likely, a groove pancreatitis is a differential consideration. Hospital Course (1) Gastritis: Inder Alvarez is a 75 year old male admitted to [facility] from October 05-2020 due to left lower quadrant abdominal pain and weight loss. Subsequent workup revealed constipation and duodenitis and possibility of pancreatitis on MRCP and CT although without pain in this area. EGD on 10/07 showed diffuse moderate inflammation consistent with gastritis and erythematous duodenopathy. Biopsy pathology pending at time of discharge. Suspect his pain is secondary to constipation as laxatives helped with this however his penile implant reservoir is also in this area and if you are having continued pain here recommend following up with your urologist although no problems were noted with this on imaging. Lipase was also noted to be mildly elevated possibly secondary to mercaptopurine vs. celiac disease. Less likely acute pancreatitis given lack of epigastric pain although this may be contributing towards your nausea. Recommend discontinuing mercaptopurine and continuing on a gluten free diet and following up with your immunoglobulin tests For gastritis/duodenitis seen on imaging and endoscopy recommended stopping aspirin and continuing on pantoprazole but increasing this to twice a day, addition of famotidine 20mg PO daily and Carafate 1g PO before meals and night. He should follow up with gastroenterology for continued management of this. (2) Left sided abdominal pain: (3) CAD (coronary artery disease): (4) Dyslipidemia: (5) Idiopathic polyneuropathy: (6) DVT prophylaxis: Total Time Total Time Spent Total Time Spent (In Minutes): 40 Total Time Includes: Examination of the Patient, Discharge Planning and Medication Reconciliation Discharge Plan Discharge Items Patient Disposition: Home - Self-Care Reason For Visit: GASTRITIS,N/V WT LOSS Discharge Diagnosis: Duodenitis Gastritis Constipation Activity: Resume your previous activity Non-emergency contact: Primary Care Provider Call non-emergency contact if: you have any medication questions and your symptoms worsen Follow-up/Referrals: Jass Lizarraga MD [Primary Care Provider] - 10/11/20 10:15 am (Hospital Follow Up with [facility]) Antonio Delaney MD [Physician] - (To be arranged) Diet: Other - See Diet Comment Diet Comment: Per dietary recommendations, gluten free Addtl Attending Provider Instructions: You were admitted to [facility] from October 05-2020 due to abdominal pain and weight loss. Subsequent workup revealed constipation and duodenitis and possibility of pancreatitis on MRI (MRCP) and CT. Suspect your pain is secondary to constipation as laxatives helped with this however your p enile implant resevoir is also in this area and if you are having continued pain here recommend following up with your urologist although no problems were noted with this on imaging. Lipase (a pancreatic enzyme) was also noted to be elevated possibly secondary to mercaptopurine vs. celiac disease. Less likely acute pancreatitis given lack of epigastric pain although this may be contributing towards your nausea. Recommend discontinuing mercaptopurine and continuing on a gluten free diet and following up with your immunoglobulin tests For gastritis/duodenitis seen on imaging and endoscopy recommend stopping aspirin and continuing on pantoprazole but increasing this to twice a day, addition of famotidine 20mg PO daily and Carafate 1g PO before meals and night. 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 Kind regards, Dr Russ Nugent Pending Studies at Discharge: Yes Stand-Alone Forms: My [facility], Smoking Cessation Medications and DC Order Prescriptions: New polyethylene glycol 3350 [Miralax] 17 gram Powder In Packet 17 g PO QAM 30 Days Qty: 30 RF: 0 famotidine 20 mg Tablet 20 mg PO QAM 30 Days Qty: 30 RF: 0 Continued nitroglycerin 0.4 mg tablet, sublingual 0.4 mg SL Q5M PRN (Reason: chest pain) Qty: 20 RF: 3 lorazepam 1 mg tablet 1 mg PO TID PRN (Reason: anxiety) Qty: 90 RF: 0 magnesium oxide 400 mg magnesium capsule 400 mg PO BID RF: 0 atorvastatin 40 mg tablet 40 mg PO HS Qty: 90 RF: 3 metoprolol succinate 25 mg tablet extended release 24 hr 25 mg PO QAM Qty: 90 RF: 3 ondansetron HCl 8 mg tablet 8 mg PO Q8H PRN (Reason: nausea and vomiting) Qty: 20 RF: 1 Changed pantoprazole [Protonix] 40 mg tablet,delayed release (DR/EC) 40 mg PO BID 90 Days Qty: 90 RF: 3 Discontinued aspirin 81 mg tablet,delayed release (DR/EC) 81 mg PO QAM RF: 0 mercaptopurine 50 mg tablet 75 mg PO DIRECTED RF: 0 No Action sennosides-docusate sodium [Colace 2-In-1] 8.6-50 mg tablet 1 tab-cap PO BID PRN (Reason: Constipation) RF: 0 sucralfate [Carafate] 1 gram tablet 1 g PO ACHS RF: 0 Discharge Orders: Discharge Order (Routine); Ordered 10/10/20 Ordered By: Russ Crawley/Other Patient Handouts: Duodenitis, Gluten-Free Diet for Celiac Disease, What Is Crohn's Disease, Understanding Gastritis Admission Data Admit Date/Time: 10/05/20 07:30 Attending Provider: Russ Nugent Admit Provider: Escobar Fox Primary Care Provider: Jass Lizarraga Other Providers: Edwin Rizzo Other Interventions: Discharge Summary Assessment (RN) Last Done: 10/10/20 12:07 Coding Level of Care Code D/C Day Management >30 mins Diagnoses Gastritis K29.70 Left sided abdominal pain R10.9 CAD (coronary artery disease) I25.10 Dyslipidemia E78.5 Idiopathic polyneuropathy G60.9 DVT prophylaxis Z29.9
[2020-10-10 22:07] LABS: IgA Serum 171 mg/dL (70-320); Tis Trans IgA 2 U/mL
== END 2020-10-10 13:37 | disposition home or self-care (01) | DRG 386 ==
LOC: ED 03:45 → SUATTDRO 07:30 → 3N 07:30

== ENCOUNTER 2022-09-17 11:17 | Inpatient (IN) ==
--- NOTE | 2022-09-17 11:56 | Emergency Department Note ---
ED Provider Note History of Present Illness Chief Complaint: Fall Stated Complaint: FALL, RIB PAIN, CHEST PAIN, DIFFICULTY BREATHING Time Seen by Provider: 09/17/22 11:28 This patient is a 76-year-old male who presents to the emergency department for evaluation after a fall. 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 He was up most of the night taking care of her and states that at 5 AM (6 hours ago), he was walking from the kitchen into the bedroom and fell. He believes that he tripped on a throw rug but admits that he is not entirely sure about this. He admits to some recent falls and balance issues which he thinks are due to sleep deprivation. He states that since the fall, he has had severe pain in the right ribs and difficulty taking a full breath. He has increasing pain with any movements or breathing. He states it feels like a "deep" pain. He is not sure if he hit his head but states that he does not have any coelho on his head. He does have some abrasions to the arms. He does not take any anticoagulants. Home Medications Medication Instructions Recorded Confirmed Type sennosides 8.6 mg-docusate sodium 1 tab-cap PO BID PRN Constipation 10/11/20 09/17/22 History 50 mg tablet (Colace 2-In-1) nitroglycerin 0.4 mg sublingual 0.4 mg sublingual Q5M PRN chest 01/25/21 09/17/22 Rx tablet pain #20 tabs aspirin 81 mg tablet,delayed 81 mg PO DAILY #90 tabs 02/07/21 09/17/22 Rx release (Adult Low Dose Aspirin) magnesium oxide 400 mg PO BID #180 caps 05/01/21 09/17/22 Rx ondansetron HCl 8 mg tablet 8 mg PO Q8H PRN nausea and 10/02/21 09/17/22 Rx vomiting #20 tabs pantoprazole 40 mg tablet,delayed 40 mg PO BID GERD and gastritis 3 04/19/22 09/17/22 Rx release (Protonix) months #180 tabs sertraline 50 mg tablet 50 mg PO DAILY 04/19/22 09/17/22 History terbinafine HCl 250 mg tablet 250 mg PO DAILY PRN infection 06/07/22 09/17/22 History lorazepam 1 mg tablet 1 mg PO TID PRN anxiety #90 tabs 07/05/22 09/17/22 Rx atorvastatin 40 mg tablet 40 mg PO HS #90 tabs 07/09/22 09/17/22 Rx metoprolol succinate 25 mg 25 mg PO QAM #90 tabs 09/11/22 09/17/22 Rx tablet,extended release 24 hr multivitamin (Daily Multi-Vitamin 1 tab PO DAILY 09/17/22 09/17/22 History tablet) Allergies Allergy/AdvReac Type Severity Reaction Status Date / Time tamsulosin Allergy Intermediate SYNCOPE Verified 08/21/22 17:04 doxycycline Allergy Unknown UNKNOWN Verified 08/21/22 17:04 gluten Allergy Unknown Gastrointestinal Verified 08/21/22 17:04 Upset Past Med/Surg History Medical History Acid reflux Acute pancreatitis CAD (coronary artery disease) Remote history of anterior myocardial infarction 1992 treated with thrombolytic therapy. Followed by [facility]. Celiac disease Diverticulosis Dizziness Dyslipidemia History of kidney stones History of myocardial infarction 1992 - follows w/ Dr. Yu Hx of gastritis Lower back pain Mild intermittent asthma NO ACTIVE INHALER Non-productive cough Sensorineural hearing loss of both ears Tinnitus, bilateral Surgical History History of cardiac cath 1992 - [place] - angioplasty (no stents) History of colonoscopy History of esophagogastroduodenoscopy (EGD) History of left cataract surgery History of penile implant Hx of inguinal hernia repair Rt Status post trigger finger release Family History Father , age 71 of chronic leukemia Stroke Kidney stones Lung cancer Brother Skin cancer Uncle Myocardial infarction Other No family history of adverse response to anesthesia Denies family history of Ovarian cancer Prostate cancer Bipolar disorder Colorectal cancer Social History Smoking Status: Never smoker Second Hand Exposure: No; Do You Dip or Chew Tobacco: No; Hx Alcohol Use: No Hx Substance Use: No Preferred Language: Kazakh Communication Ability: Effective Visual Impairment: No Limitations Hearing Ability: Normal Collision Technician Required: No Beliefs That Will Affect Care: None marital status: Current Living Situation: Spouse current occupational status: 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 Feels Safe at Home: Yes Safety Concerns: Feels Safe At This Time Childhood Exposure to Second-Hand Smoke: No Dental Care, Regularly: Yes Physical Activity Frequency: 3-4 Times per Week Physical Activity Frequency Comment: walking Seatbelt Use: always Sunscreen Use: Yes Assistive Devices: Glasses Physical Exam Vital Signs Vital Signs - 24 hr 09/17/22 11:21 09/17/22 12:01 09/17/22 12:01 Temperature 36.6 C Temperature Source Temporal Artery Scan Pulse Rate 108 H Pulse Rate [Apical] 84 Respiratory Rate 18 22 Respiratory Effort / Characteristics Non-Labored Spontaneous Non-Labored Spontaneous Respiratory Depth Normal Shallow Respiratory Pattern Regular Regular Blood Pressure 115/71 Blood Pressure [Right Arm] 121/65 Blood Pressure Mean 85 Blood Pressure Mean [Right Arm] 83 Blood Pressure Position [Right Arm] Lying Pulse Oximetry 95 96 96 Oxygen Delivery Method Room Air Room Air Room Air Sepsis Recent Fever Within 48 Hours No Sepsis New/Unexplained Change in Mental Status No Sepsis Action Taken by Nursing No Action Required 09/17/22 12:27 09/17/22 14:15 Temperature Temperature Source Pulse Rate 80 Pulse Rate [Apical] 78 Respiratory Rate 22 Respiratory Effort / Characteristics Non-Labored Spontaneous Respiratory Depth Shallow Respiratory Pattern Regular Blood Pressure Blood Pressure [Right Arm] 123/81 Blood Pressure Mean Blood Pressure Mean [Right Arm] 95 Blood Pressure Position [Right Arm] Lying Pulse Oximetry 96 Oxygen Delivery Method Room Air Sepsis Recent Fever Within 48 Hours Sepsis New/Unexplained Change in Mental Status Sepsis Action Taken by Nursing VITALS: Vitals are noted on the nurse's note and reviewed by myself. GENERAL: This is a 76-year-old male, in no acute distress, sitting up in bed. SKIN: Abrasions noted to left forearm and right elbow. There is a skin tear of the dorsum of the left hand. HEAD: Normocephalic atraumatic. EARS: External auditory canals clear, tympanic membranes pearly ashby without erythema or effusion bilaterally. No hemotympanum. EYES: Pupils equal round and reactive to light and accommodation. Extraocular movements intact. NOSE: No deformity. No bleeding. MOUTH: Mucous membranes moist. NECK: Supple without nuchal rigidity. Cervical spine is nontender. Right cervical paraspinous muscles tenderness. HEART: Regular rate and rhythm without murmurs gallops or rubs. LUNGS: Clear to auscultation bilaterally without wheezes, rales or rhonchi. ABDOMEN: Positive bowel sounds x 4. There is tenderness to palpation in the right upper quadrant with mild guarding. MUSCULOSKELETAL: Tenderness to palpation of the right lateral and anterior chest wall. NEURO: Patient was alert and oriented to person place and time. Course Consultations Consultation #1: Dr. Romero - pulmonology Consultation #2: Dr. Sotelo [facility], trauma Consultation #3: Dr. Nugent [facility] hospitalist Administered Medications Atorvastatin Calcium (Atorvastatin 40 Mg Tab) 40 mg PO HS JACY Stop: 10/17/22 20:59 Last Admin: 09/17/22 20:06 Dose: 40 mg Documented By: GUILLERMINA Magnesium Oxide (Magnesium Oxide 400 Mg Tab) 400 mg PO BID JACY Stop: 10/17/22 20:59 Last Admin: 09/17/22 20:06 Dose: 400 mg Documented By: DIESEL POWERPLANT SUPERVISOR Morphine Sulfate (Morphine Sulfate 2 Mg/Ml Carp) 2 mg IV Q4H PRN PRN Reason: Pain(4,5,6+) Stop: 10/01/22 15:30 Last Admin: 09/17/22 17:31 Dose: 2 mg Documented By: RICKY Pantoprazole Sodium (Pantoprazole 40 Mg Tab) 40 mg PO BID JACY Stop: 10/17/22 20:59 Last Admin: 09/17/22 20:06 Dose: 40 mg Documented By: DIESEL POWERPLANT SUPERVISOR Discontinued Medications Acetaminophen (Acetaminophen 325 Mg Tab) 650 mg PO NOW STA Stop: 09/17/22 15:31 Last Admin: 09/17/22 15:42 Dose: 650 mg Documented By: BAUTISTA Ioversol (Optiray 320 100ml) 90 ml IV ONCE ONE Stop: 09/17/22 12:54 Last Admin: 09/17/22 12:54 Dose: 90 ml Documented By: MYLES Morphine Sulfate (Morphine Sulfate 2 Mg/Ml Carp) 2 mg IV NOW STA Stop: 09/17/22 13:32 Last Admin: 09/17/22 13:41 Dose: 2 mg Documented By: BOBBI Medical Decision Making Differential Diagnosis Fracture, dislocation, contusion, intra-abdominal, pneumothorax, intrathoracic, intracranial, neurologic, compartment syndrome, rhabdomyolysis, as well as other pathologies. Home Medications was personally reviewed by me Laboratory Data Attestation: I reviewed the patient's lab results. 09/17/22 11:58 09/17/22 11:58 Lab Results 09/17/22 09/17/22 09/17/22 Range/Units 11:58 11:58 13:46 WBC 12.49 H (4.8-10.8) K/ul RBC 4.23 L (4.70-6.10) M/uL Hgb 12.9 L (14.0-18.0) g/dl Hct 39.0 L (42.0-52.0) % MCV 92.2 (80.0-100.0) fL MCH 30.5 (25.0-34.0) pg MCHC 33.1 (32.0-36.0) g/dL RDW Std Deviation 44.9 (36.4-46.3) fL RDW Coeff of Daquan 13.3 (11.5-14.5) % Plt Count 175 (130-400) K/uL MPV 10.1 (9.4-12.4) fL Immature Gran % (Auto) 0.4 % Neut % (Auto) 86.4 % Lymph % (Auto) 4.2 % [place] % (Auto) 8.5 % Eos % (Auto) 0.2 % Baso % (Auto) 0.3 % Neut # (Auto) 10.80 H (1.40-6.50) K/uL Lymph # (Auto) 0.52 L (1.2-3.4) K/uL [place] # (Auto) 1.06 H (0.11-0.59) K/uL Eos # (Auto) 0.02 (0-0.50) K/uL Baso # (Auto) 0.04 (0-0.2) K/uL Immature Gran # (Auto) 0.05 (0.01-0.20) K/uL Sodium 138 (136-145) mmol/L Potassium 3.9 (3.5-5.1) mmol/L Chloride 104 (98-107) mmol/L Carbon Dioxide 29 (21-32) mmol/L Anion Gap 5 (3-11) BUN 32 H (6-23) mg/dl Creatinine 0.81 (0.6-1.4) mg/dl Est Cr Clr Drug Dosing 65.9 ml/min Est GFR ( Amer) 99.4 ml/min Est GFR (Non-Af Amer) 85.7 ml/min BUN/Creatinine Ratio 39.5 H (10-20) Glucose 110 H (70-99(Fasting)) mg/dl Calcium 9.2 (8.6-10.3) mg/dl Magnesium 2.0 (1.7-2.4) mg/dl Total Bilirubin 0.8 (0.2-1.0) mg/dl AST 27 (13-39) U/L ALT 27 (7-52) U/L Alkaline Phosphatase 82 (34-104) U/L Total Protein 6.9 (6.0-8.3) gm/dl Albumin 4.1 (3.4-5.0) gm/dl Globulin 2.8 (2.5-4.0) gm/dl Albumin/Globulin Ratio 1.5 (0.9-2) SARS-CoV-2, RNA, NAAT NEGATIVE (NEGATIVE) Imaging Data Attestation: I personally reviewed and interpreted this imaging study as follows: Radiologist's Impression: Abdomen/Pelvis CT 09/17/22 11:[address] WITH CONTRAST; CT ABDOMEN AND PELVIS WITH IV CONTRAST ONLY. HISTORY: Acute chest and abdominal pain status post fall. fall, right rib/flank pain, sob TECHNIQUE: Multiaxial CT images of the chest, abdomen and pelvis were performed following the IV administration of 90 cc of Optiray. A dose lowering technique was utilized adhering to the principles of ALARA. COMPARISON: The cervical spine of same day, CTA chest 09/14/2006. FINDINGS: CT CHEST: Unremarkable thyroid. No lymphadenopathy identified. Heart is normal in size. Extensive coronary artery calcifications. Ectasia of the aortic root, 3.9 cm. Unremarkable opacified pulmonary artery. Right-sided hydropneumothorax. Trace amount of pleural fluid. Pleural separation of the pneumothorax the level of the lung apex measures 9 mm and anteriorly measures up to approximately 2.5 cm. Mild right basilar atelectasis. 4 mm solid nodule of the apical segment right upper lobe is new from the prior exam. Subsegmental likely infectious or inflammatory tree-in-bud nodules of the inferior segment lingula. Airways are patent. Unremarkable soft tissues. Degenerative changes of the shoulders and spine. Acute undisplaced fracture of the posterior right 11th rib. Mild cortical angulation of the posterior right 10th and 12th ribs. Acute nondisplaced fractures lateral right eighth, ninth and 10th ribs. Mild superior endplate compression at T1 and T2 without retropulsion or paravertebral edema. Midthoracic dextroscoliosis. Mild subcutaneous emphysema of the right lateral chest wall. CT ABDOMEN/PELVIS: Unremarkable spleen, mildly atrophic pancreas and adrenal glands. Gallbladder and liver appear unremarkable. Patency of the hepatic and portal veins. There are a few punctate nonobstructing bilateral renal calculi. Symmetric enhancement of the kidneys. Prostatomegaly. Distended urinary bladder with mild wall thickening. A penis pump device is in place. Atherosclerosis of the aorta without aneurysm. No lymphadenopathy identified. No bowel obstruction or bowel wall thickening. Colonic diverticulosis. Moderate colonic fecal retention. Degenerative changes of the spine, pelvis and hips. IMPRESSION: 1. Acute right-sided rib fractures include an acute undisplaced fracture of the posterior right 10th rib. 2. Right-sided hydropneumothorax. 3. Mild age-indeterminate superior endplate compression at T1 and T2. No retropulsion. 4. No acute posttraumatic intra-abdominal or intrapelvic abnormality identified. 5. Nonobstructing bilateral nephrolithiasis. 6. Additional findings as above. ACT 112: Negative or not required by law. Electronically signed by: Marquis Dalal M.D. 09/17/2022 1:[address] 09/17/22 11:43 CT cervical spine wo con CT DOSE: 2048.80 mGy.cm CLINICAL HISTORY: 76 years-old Male with fall. Acute head and neck injury status post fall COMPARISON: Chest CT of same day, CTA chest 09/14/2006 TECHNIQUE: Multiple axial CT images of the cervical spine were obtained without contrast. A dose lowering technique was utilized adhering to the principles of ALARA. FINDINGS: Multilevel degenerative changes. No acute cervical spine fracture or subluxation identified. Mild superior endplate compression at T1 and T2 is new from the prior study. No associated retropulsion or appreciable prevertebral edema. The cervical soft tissues appear unremarkable. Small right apical pneumothorax. IMPRESSION: 1. No acute cervical spine fracture or subluxation identified. 2. Mild superior endplate compression at T1 and T2 without retropulsion or paravertebral edema are technically age indeterminate and are new from 09/14/2006. 3. Small right apical pneumothorax. Please refer to the chest CT of same day for additional findings. ACT 112: Negative or not required by law. The above report was generated using voice recognition software. It may contain grammatical, syntax or spelling errors. Electronically signed by: Marquis Dalal M.D. 09/17/2022 1:[address] 09/17/22 11:[address] WITH CONTRAST; CT ABDOMEN AND PELVIS WITH IV CONTRAST ONLY. HISTORY: Acute chest and abdominal pain status post fall. fall, right rib/flank pain, sob TECHNIQUE: Multiaxial CT images of the chest, abdomen and pelvis were performed following the IV administration of 90 cc of Optiray. A dose lowering technique was utilized adhering to the principles of ALARA. COMPARISON: The cervical spine of same day, CTA chest 09/14/2006. FINDINGS: CT CHEST: Unremarkable thyroid. No lymphadenopathy identified. Heart is normal in size. Extensive coronary artery calcifications. Ectasia of the aortic root, 3.9 cm. Unremarkable opacified pulmonary artery. Right-sided hydropneumothorax. Trace amount of pleural fluid. Pleural separation of the pneumothorax the level of the lung apex measures 9 mm and anteriorly measures up to approximately 2.5 cm. Mild right basilar atelectasis. 4 mm solid nodule of the apical segment right upper lobe is new from the prior exam. Subsegmental likely infectious or inflammatory tree-in-bud nodules of the inferior segment lingula. Airways are patent. Unremarkable soft tissues. Degenerative changes of the shoulders and spine. Acute undisplaced fracture of the posterior right 11th rib. Mild cortical angulation of the posterior right 10th and 12th ribs. Acute nondisplaced fractures lateral right eighth, ninth and 10th ribs. Mild superior endplate compression at T1 and T2 without retropulsion or paravertebral edema. Midthoracic dextroscoliosis. Mild subcutaneous emphysema of the right lateral chest wall. CT ABDOMEN/PELVIS: Unremarkable spleen, mildly atrophic pancreas and adrenal glands. Gallbladder and liver appear unremarkable. Patency of the hepatic and portal veins. There are a few punctate nonobstructing bilateral renal calculi. Symmetric enhancement of the kidneys. Prostatomegaly. Distended urinary bladder with mild wall thickening. A penis pump device is in place. Atherosclerosis of the aorta without aneurysm. No lymphadenopathy identified. No bowel obstruction or bowel wall thickening. Colonic diverticulosis. Moderate colonic fecal retention. Degenerative changes of the spine, pelvis and hips. IMPRESSION: 1. Acute right-sided rib fractures include an acute undisplaced fracture of the posterior right 10th rib. 2. Right-sided hydropneumothorax. 3. Mild age-indeterminate superior endplate compression at T1 and T2. No retropulsion. 4. No acute posttraumatic intra-abdominal or intrapelvic abnormality identified. 5. Nonobstructing bilateral nephrolithiasis. 6. Additional findings as above. ACT 112: Negative or not required by law. Electronically signed by: Marquis Dalal M.D. 09/17/2022 1:[address] 09/17/22 11:44 CT head/brain wo con CLINICAL HISTORY: 76 years-old Male with fall. Acute head trauma status post fall TECHNIQUE: Multiple axial CT images of the head were obtained without contrast. A dose lowering technique was utilized adhering to the principles of ALARA. COMPARISON: Brain MRI 06/21/2022 FINDINGS: No acute intracranial hemorrhage, midline shift, intracranial mass, hydrocephalus, territorial ischemia or abnormal extra-axial collection. Involutional changes with mild chronic microvascular ischemic disease again noted. Central pontine calcifications are again seen. The calvarium is intact. Prior left-sided lens repair. The paranasal sinuses, mastoid air cells, and middle ear cavities are clear. IMPRESSION: No acute intracranial abnormality or calvarial fracture. ACT 112: Negative or not required by law. The above report was generated using voice recognition software. It may contain grammatical, syntax or spelling errors. Electronically signed by: Marquis Dalal M.D. 09/17/2022 1:02 PM ECG Data Attestation: I personally reviewed and interpreted this ECG as follows: Indication: + chest pain Rate (beats per minute): 85 Rhythm: + normal sinus ECG Intervals/blocks: + Right Bundle branch block ECG ST segments: + Normal ST segments Change: no significant change MDM Narrative Continuous equipment monitor phototypesetting: Order was placed for continuous equipment monitor phototypesetting. Patient was placed on the equipment monitor phototypesetting. Patient was noted to be in normal sinus rhythm at an initial rate of 90 bpm. The patient is a 76-year-old male who presents today complaining of right rib and flank pain after a ground-level fall. Labs with a mild leukocytosis and mild anemia, no concerning electrolyte abnormalities, normal LFTs and kidney function. Given patient's injuries, the above work-up was performed. Radiology reviewed the images and found that the patient had multiple rib fractures as well as a small hemopneumothorax. Patient was stable and required very little pain medication. O2 sats remained at 96 to 100% on room air. I spoke with our towel inspector on-call who did feel comfortable managing this patient if a trauma center agreed with conservative management. I did speak with the trauma surgeon at who recommended conservative management with pain control for the rib fractures and chest tube if needed to be determined by the towel inspector. The case was then discussed with the hospitalist, who was agreeable with the plan of care. Patient placed on a nonrebreather in the emergency department. All of the findings as well as options of care including transfer to a tertiary care facility versus admission here were discussed with the patient and he strongly prefers to be admitted here if at all possible. Impression Pneumothorax, Multiple fractures of ribs, Fall Discharge Plan Visit Data Chief Complaint: Fall Stated Complaint: FALL, RIB PAIN, CHEST PAIN, DIFFICULTY BREATHING ED Provider: Obed Felder ED Midlevel Provider: Janine Melo Discharge Problem: Pneumothorax, Multiple fractures of ribs, Fall Patient Disposition: Admitted As Inpatient Discharge Instructions Interventions: ED Discharge Assessment Last Done: 09/17/22 16:58
[2022-09-17 12:14] LABS: Basophils # (auto) 0.04 K/uL (0-0.2); Basophils % (auto) 0.3 %; Eosinophils # (auto) 0.02 K/uL (0-0.50); Eosinophils % (auto) 0.2 %; Hemoglobin 12.9 g/dl (14.0-18.0); Immature Granulocytes # (auto) 0.05 K/uL (0.01-0.20); Immature Granulocytes % (auto) 0.4 %; Lymphocytes # (auto) 0.52 K/uL (1.2-3.4); Lymphocytes % (auto) 4.2 %; Mean Corpuscular Hemoglobin 30.5 pg (25.0-34.0); Mean Corpuscular Hgb Conc 33.1 g/dL (32.0-36.0); Mean Corpuscular Volume 92.2 fL (80.0-100.0); Mean Platelet Volume 10.1 fL (9.4-12.4); Monocytes # (auto) 1.06 K/uL (0.11-0.59); Monocytes % (auto) 8.5 %; Neutrophils % (auto) 86.4 %; Platelet Count 175 K/uL (130-400); RDW Coefficient of Variation 13.3 % (11.5-14.5); RDW Standard Deviation 44.9 fL (36.4-46.3); Red Blood Count 4.23 M/uL (4.70-6.10); White Blood Count 12.49 K/ul (4.8-10.8)
[2022-09-17 12:31] LABS: Albumin Globulin Ratio 1.5 (0.9-2); Albumin Level 4.1 gm/dl (3.4-5.0); BUN Creatinine Ratio 39.5 (10-20); Bilirubin,Total 0.8 mg/dl (0.2-1.0); Calcium 9.2 mg/dl (8.6-10.3); Creatinine Clr Calc Pharmacy 65.9 ml/min; Est GFR (African American) 99.4 ml/min; Est GFR (Non-African American) 85.7 ml/min; Globulin 2.8 gm/dl (2.5-4.0); Potassium 3.9 mmol/L (3.5-5.1); Total Protein 6.9 gm/dl (6.0-8.3)
[2022-09-17] MEDS ORDERED: OPTIRAY 320 100ml IV ONE (12:53)
--- NOTE | 2022-09-17 13:03 | CT Scan Report ---
CT head/brain wo con CLINICAL HISTORY: 76 years-old Male with fall. Acute head trauma status post fall TECHNIQUE: Multiple axial CT images of the head were obtained without contrast. A dose lowering tech nique was utilized adhering to the principles of ALARA. COMPARISON: Brain MRI 06/21/2022 FINDINGS: No acute intracranial hemorrhage, midline shift, intracranial mass, hydrocephalus, territorial ischem ia or abnormal extra-axial collection. Involutional changes with mild chronic microvascular ischemic disease again noted. Central pontine calcifications are again seen. The calvarium is intact. Prior left-sided lens repair. The paranasal sinuses, mastoid air cells, and middle ear cavities are clear. IMPRESSION: No acute intracranial abnormality or calvarial fracture. ACT 112: Negative or not required by law. The above report was generated using voice recognition software. It may contain grammatical, syntax o r spelling errors. Electronically signed by: Marquis Dalal M.D. 09/17/2022 1:02 PM
--- NOTE | 2022-09-17 13:28 | CT Scan Report ---
CHEST CT WITH CONTRAST; CT ABDOMEN AND PELVIS WITH IV CONTRAST ONLY. HISTORY: Acute chest and abdominal pain status post fall. fall, right rib/flank pain, sob TECHNIQUE: Multiaxial CT images of the chest, abdomen and pelvis were performed following the IV admi nistration of 90 cc of Optiray. A dose lowering technique was utilized adhering to the principles o f ALARA. COMPARISON: The cervical spine of same day, CTA chest 09/14/2006. FINDINGS: CT CHEST: Unremarkable thyroid. No lymphadenopathy identified. Heart is normal in size. Extensive coronary lilliana ry calcifications. Ectasia of the aortic root, 3.9 cm. Unremarkable opacified pulmonary artery. Right -sided hydropneumothorax. Trace amount of pleural fluid. Pleural separation of the pneumothorax the l evel of the lung apex measures 9 mm and anteriorly measures up to approximately 2.5 cm. Mild right ba silar atelectasis. 4 mm solid nodule of the apical segment right upper lobe is new from the prior exa m. Subsegmental likely infectious or inflammatory tree-in-bud nodules of the inferior segment lingula . Airways are patent. Unremarkable soft tissues. Degenerative changes of the shoulders and spine. Acute undisplaced fractur e of the posterior right 11th rib. Mild cortical angulation of the posterior right 10th and 12th ribs . Acute nondisplaced fractures lateral right eighth, ninth and 10th ribs. Mild superior endplate comp ression at T1 and T2 without retropulsion or paravertebral edema. Midthoracic dextroscoliosis. Mild s ubcutaneous emphysema of the right lateral chest wall. CT ABDOMEN/PELVIS: Unremarkable spleen, mildly atrophic pancreas and adrenal glands. Gallbladder and liver appear unrema rkable. Patency of the hepatic and portal veins. There are a few punctate nonobstructing bilateral re nal calculi. Symmetric enhancement of the kidneys. Prostatomegaly. Distended urinary bladder with mil d wall thickening. A penis pump device is in place. Atherosclerosis of the aorta without aneurysm. No lymphadenopathy identified. No bowel obstruction or bowel wall thickening. Colonic diverticulosis. Moderate colonic fecal retenti on. Degenerative changes of the spine, pelvis and hips. IMPRESSION: 1. Acute right-sided rib fractures include an acute undisplaced fracture of the posterior right 10th rib. 2. Right-sided hydropneumothorax. 3. Mild age-indeterminate superior endplate compression at T1 and T2. No retropulsion. 4. No acute posttraumatic intra-abdominal or intrapelvic abnormality identified. 5. Nonobstructing bilateral nephrolithiasis. 6. Additional findings as above. ACT 112: Negative or not required by law. Electronically signed by: Marquis Dalal M.D. 09/17/2022 1:26 PM
--- NOTE | 2022-09-17 13:29 | CT Scan Report ---
CT cervical spine wo con CT DOSE: 2048.80 mGy.cm CLINICAL HISTORY: 76 years-old Male with fall. Acute head and neck injury status post fall COMPARISON: Chest CT of same day, CTA chest 09/14/2006 TECHNIQUE: Multiple axial CT images of the cervical spine were obtained without contrast. A dose low ering technique was utilized adhering to the principles of ALARA. FINDINGS: Multilevel degenerative changes. No acute cervical spine fracture or subluxation identified . Mild superior endplate compression at T1 and T2 is new from the prior study. No associated retropul greg or appreciable prevertebral edema. The cervical soft tissues appear unremarkable. Small right apical pneumothorax. IMPRESSION: 1. No acute cervical spine fracture or subluxation identified. 2. Mild superior endplate compression at T1 and T2 without retropulsion or paravertebral edema are te chnically age indeterminate and are new from 09/14/2006. 3. Small right apical pneumothorax. Please refer to the chest CT of same day for additional findings. ACT 112: Negative or not required by law. The above report was generated using voice recognition software. It may contain grammatical, syntax o r spelling errors. Electronically signed by: Marquis Dalal M.D. 09/17/2022 1:28 PM
[2022-09-17] MEDS ORDERED: MoRPHine SULFATE 2 MG/ML CARP IV STA (13:31)
--- NOTE | 2022-09-17 14:55 | Pulmonary Consultation ---
Date of Consultation September 17, 2022 Assessment & Plan (1) Multiple fractures of ribs: (2) Pneumothorax: Plan CT chest 09/17/2022 personally reviewed: Right-sided pneumothorax, dilated upper esophagus Dependent atelectasis bilateral lower lobes more on the right side No significant mediastinal lymphadenopathy -- Secondary pneumothorax Likely secondary to multiple rib fractures s/p fall Avoid positive pressure ventilation Antitussive medication [id number] Pain management Case was discussed with [facility] trauma team by ER Kameron Mehta and their recommendation was conservative management for the time being. --Multiple rib fractures S/p fall Management as per primary team Plan: Put the patient on nonrebreather, avoid positive pressure ventilation Pain management. Patient will have splinting because of the right-sided rib fractures. He is at high risk for development of pneumonia We will repeat a chest x-ray later today, if there is any worsening in the size of the pneumothorax or there is hemodynamic compromise we will put a chest tube in Case was discussed with hospitalist team Please note the above document was generated using voice recognition software. It may contain grammatical, syntax or spelling errors.Any formal questions or concerns about the content, text or information contained within the body of this dictation should be directly addressed to the provider for clarification. History of Present Illness History of Present Illness 76-year-old male presented to the hospital s/p fall Past medical history: Dyslipidemia, hypertension, coronary artery disease Patient had a CT chest head and neck done s/p fall and was found to have pneumothorax Pulmonary were consulted for the same At the time of examination patient was on nonrebreather saturating 100% not in any respiratory distress. He did complain of chest pain on taking deep breaths on the right side. Denies any chest tightness, no headache or dizziness Patient denies losing consciousness, no palpitation prior to the fall He thinks he most likely tripped ER for ischemia call to discuss the multiple rib fractures and the hydropneumothorax on the right side. I advised him to call trauma center to get their opinion [facility] was reached and they said to do conservative management. Patient is usually taking care of his who is dependent on him. He was worried about her wellbeing. Social history: Patient used to smoke socially 1 or 2 cigarettes. Quit long time ago. No alcohol, denies any illicit drug use Allergies Allergy/AdvReac Type Severity Reaction Status Date / Time tamsulosin Allergy Intermediate SYNCOPE Verified 08/21/22 17:04 doxycycline Allergy Unknown UNKNOWN Verified 08/21/22 17:04 gluten Allergy Unknown Gastrointestinal Verified 08/21/22 17:04 Upset Home Medications Medication Instructions Recorded Confirmed Type sennosides 8.6 mg-docusate sodium 1 tab-cap PO BID PRN Constipation 10/11/20 09/17/22 History 50 mg tablet (Colace 2-In-1) nitroglycerin 0.4 mg sublingual 0.4 mg sublingual Q5M PRN chest 01/25/21 09/17/22 Rx tablet pain #20 tabs aspirin 81 mg tablet,delayed 81 mg PO DAILY #90 tabs 02/07/21 09/17/22 Rx release (Adult Low Dose Aspirin) magnesium oxide 400 mg PO BID #180 caps 05/01/21 09/17/22 Rx ondansetron HCl 8 mg tablet 8 mg PO Q8H PRN nausea and 10/02/21 09/17/22 Rx vomiting #20 tabs pantoprazole 40 mg tablet,delayed 40 mg PO BID GERD and gastritis 3 04/19/22 09/17/22 Rx release (Protonix) months #180 tabs sertraline 50 mg tablet 50 mg PO DAILY 04/19/22 09/17/22 History terbinafine HCl 250 mg tablet 250 mg PO DAILY PRN infection 06/07/22 09/17/22 History lorazepam 1 mg tablet 1 mg PO TID PRN anxiety #90 tabs 07/05/22 09/17/22 Rx atorvastatin 40 mg tablet 40 mg PO HS #90 tabs 07/09/22 09/17/22 Rx metoprolol succinate 25 mg 25 mg PO QAM #90 tabs 09/11/22 09/17/22 Rx tablet,extended release 24 hr multivitamin (Daily Multi-Vitamin 1 tab PO DAILY 09/17/22 09/17/22 History tablet) Patient History Medical History Acid reflux Acute pancreatitis CAD (coronary artery disease) Remote history of anterior myocardial infarction 1992 treated with thrombolytic therapy. Followed by [facility]. Celiac disease Diverticulosis Dizziness Dyslipidemia History of kidney stones History of myocardial infarction 1992 - follows w/ Dr. Yu Hx of gastritis Lower back pain Mild intermittent asthma NO ACTIVE INHALER Non-productive cough Sensorineural hearing loss of both ears Tinnitus, bilateral Surgical History History of cardiac cath 1992 - [facility] - angioplasty (no stents) History of colonoscopy History of esophagogastroduodenoscopy (EGD) History of left cataract surgery History of penile implant Hx of inguinal hernia repair Rt Status post trigger finger release Family History Father , age 71 of chronic leukemia Stroke Kidney stones Lung cancer Brother Skin cancer Uncle Myocardial infarction Other No family history of adverse response to anesthesia Denies family history of Ovarian cancer Prostate cancer Bipolar disorder Colorectal cancer Social History Smoking Status: Never smoker Second Hand Exposure: No; Do You Dip or Chew Tobacco: No; Hx Alcohol Use: No Hx Substance Use: No Preferred Language: [place] Communication Ability: Effective Visual Impairment: No Limitations Hearing Ability: Normal 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 Feels Safe at Home: Yes Childhood Exposure to Second-Hand Smoke: No Dental Care, Regularly: Yes Physical Activity Frequency: 3-4 Times per Week Physical Activity Frequency Comment: walking Seatbelt Use: always Sunscreen Use: Yes Assistive Devices: None Review of Systems Review of Systems: All systems reviewed & are unremarkable except as noted in HPI & below Physical Exam Physical Exam: Constitutional: No acute distress HEENT: EOMI, PERRLA, no subcu emphysema Respiratory system: Decreased air entry on the right side, no wheeze, no rhonchi, mild crackles right lower lobe CVS: S1-S2 positive, no murmurs or gallops Abdomen: Soft, nontender, nondistended, positive bowel sounds x4 Extremities: +2 pulses bilaterally radialis/ dorsalis pedis, no cyanosis,+ 1 pitting edema bilateral lower extremity Neuro: Awake alert oriented x3 Psych: Normal mood and affect G/U: No [place] Musculoskeletal: Tenderness appreciated on the right lateral and posterior lateral ribs. No ecchymosis Skin: no rashes, warm and dry Lymphatic: no cervical or axillary lymphadenopathy Results & Data Results & Data Vital Signs (Past 12 Hours) Vital Signs Temp Pulse Pulse Resp BP BP Pulse Ox 09/17/22 14:15 78 22 123/81 96 09/17/22 12:27 80 09/17/22 12:01 96 09/17/22 12:01 84 22 121/65 96 09/17/22 11:21 36.6 C 108 H 18 115/71 95 O2 Del Method 09/17/22 14:15 Room Air 09/17/22 12:27 09/17/22 12:01 Room Air 09/17/22 12:01 Room Air 09/17/22 11:21 Room Air Laboratory Results 09/17/22 11:58 09/17/22 11:58 PG Care Time/CCT Total # of Minutes Spent Total Time Spent with Patient: Total time spent is greater than 50% in coordination of care (as documented) at patient's floor/unit and/or counseling patient: Coding Level of Care Code 03734 INT INP/OBS CARE 3/75MIN Diagnoses Multiple fractures of ribs S22.49XA Pneumothorax J93.9
--- NOTE | 2022-09-17 14:56 | History & Physical Report ---
Date of Service September 17, 2022 Assessment & Plan (1) Fall from standing: Plan: -Admit to the PCU on tele and pulse oximetry -Currently stable -Has chronic balance issues with gait abnormalities causing a mechanical, ground-level fall this am -Not on anticoagulation, no LOC, currently comfortable -No other acute trauma besides the right 8th-12th, non-displaced rib fractures -Pain control per rib fracture plan -AM CBC and BMP -BL SCD's for DVT PPX -Will have him evaluated by PT and OT prior to discharge (2) Pneumothorax: Plan: -Patient with acute right apical pneumothorax on CT of the chest today -Has been hemodynamically stable, and currently stable on non-rebreather for treatment, was not hypoxic on arrival -Was evaluated by Pulmonology who is comfortable with the patient being managed here after discussions with [facility] -Continue O2 per Non-rebreather. -PO tylenol q6h scheduled and q4hy prn 2mg IV morphine for 6+ pain -Will obtain am chest xray for follow up -Pulmonology will continue to follow, holding off on chest tube for now as he is stable and relatively asymptomatic (3) Multiple fractures of ribs: Plan: -Non-displaced -Scheduled tylenol and prn IV morphine for severe pain (4) Gait disturbance: Plan: -PT/OT consults placed (5) CAD (coronary artery disease): Plan: -Continue daily aspirin (6) Dyslipidemia: Plan: -Continue stain (7) HTN (hypertension): Plan: -Stable -Continue metoprolol Plan The patient was discussed with Dr. Nugent at the time of the admission History of Present Illness Chief Complaint: Fall, right chest pain, SOB Primary Care Provider: Jass Lizarraga MD Inder is a 76 year old male with a PMH significant for CAD, dyslipidemia, mild intermittent asthma, HTN who presented to the [facility] ED on 09/17/22 with a chief complaint of a fall at home. In the ED vitals were stable. Labs were significant for a leukocytosis of 12 with left shift of 10 and covid [address] of the head was negative for acute findings. CT of the cervical spine was read as no acute findings with age indeterminate mild superior endplate T1 and T2 compression fractures. CT of the chest/abd/pelvis w/IV con was read as Acute undisplaced fracture of the posterior right 11th rib. Mild cortical angulation of the posterior right 10th and 12th ribs. Acute nondisplaced fractures lateral right eighth, ninth and 10th ribs. 2. Right-sided hydropneumothorax. 3. Mild age-indeterminate superior endplate compression at T1 and T2. No retropulsion. 4. No acute posttraumatic intra-abdominal or intrapelvic abnormality identified. 5. Nonobstructing bilateral nephrolithiasis.. The ED staff spoke with the [facility] team who explained that the patient could be admitted to [facility] if our Pulmonology team was comfortable managing the Pneumothorax. The patient was evaluated by Pulmonology who recommended Hospital Medicine admission to the PCU at this time.Prior to admission the patient was given 2 mg IV morphine. At the time of the exam the patient was sitting in bed in no acute distress. He states that he was in his normal state of health upon waking around 0500 this am. 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 He states that he has had chronic balance issues and typically loses his balance to the right. He fell on his right side and denies hitting his head or losing consciousness. He is on daily aspirin for previous NM without stenting in 1992. After getting up he had progressive right chest pain and SOB, which is why he presented to the ED. He is currently feeling well until he takes a deep breath, then he experiences sharp right-sided chest pain. He denies any lightheadedness, dizziness, chest pain, heart palpitations, or SOB prior to his fall. The 2 mg of IV morphine he received in the ED improved his symptoms. He wishes to be a conditional code with a trial of intubation in the event of respiratory failure. He would not want CPR or defibrillation in the event of cardiac arrest. His Daughter is his POA. Please refer to Dr. Nugent's attestation for any changes to the treatment plan Allergies Allergy/AdvReac Type Severity Reaction Status Date / Time tamsulosin Allergy Intermediate SYNCOPE Verified 08/21/22 17:04 doxycycline Allergy Unknown UNKNOWN Verified 08/21/22 17:04 gluten Allergy Unknown Gastrointestinal Verified 08/21/22 17:04 Upset Home Medications Medication Instructions Recorded Confirmed Type sennosides 8.6 mg-docusate sodium 1 tab-cap PO BID PRN Constipation 10/11/20 09/17/22 History 50 mg tablet (Colace 2-In-1) nitroglycerin 0.4 mg sublingual 0.4 mg sublingual Q5M PRN chest 01/25/21 09/17/22 Rx tablet pain #20 tabs aspirin 81 mg tablet,delayed 81 mg PO DAILY #90 tabs 02/07/21 09/17/22 Rx release (Adult Low Dose Aspirin) magnesium oxide 400 mg PO BID #180 caps 05/01/21 09/17/22 Rx ondansetron HCl 8 mg tablet 8 mg PO Q8H PRN nausea and 10/02/21 09/17/22 Rx vomiting #20 tabs pantoprazole 40 mg tablet,delayed 40 mg PO BID GERD and gastritis 3 04/19/22 09/17/22 Rx release (Protonix) months #180 tabs sertraline 50 mg tablet 50 mg PO DAILY 04/19/22 09/17/22 History terbinafine HCl 250 mg tablet 250 mg PO DAILY PRN infection 06/07/22 09/17/22 History lorazepam 1 mg tablet 1 mg PO TID PRN anxiety #90 tabs 07/05/22 09/17/22 Rx atorvastatin 40 mg tablet 40 mg PO HS #90 tabs 07/09/22 09/17/22 Rx metoprolol succinate 25 mg 25 mg PO QAM #90 tabs 09/11/22 09/17/22 Rx tablet,extended release 24 hr multivitamin (Daily Multi-Vitamin 1 tab PO DAILY 09/17/22 09/17/22 History tablet) Past Med/Surg History Medical History Acid reflux Acute pancreatitis CAD (coronary artery disease) Remote history of anterior myocardial infarction 1992 treated with thrombolytic therapy. Followed by [facility]. Celiac disease Diverticulosis Dizziness Dyslipidemia History of kidney stones History of myocardial infarction 1992 - follows w/ Dr. Yu Hx of gastritis Lower back pain Mild intermittent asthma NO ACTIVE INHALER Non-productive cough Sensorineural hearing loss of both ears Tinnitus, bilateral Surgical History History of cardiac cath 1992 - NM - angioplasty (no stents) History of colonoscopy History of esophagogastroduodenoscopy (EGD) History of left cataract surgery History of penile implant Hx of inguinal hernia repair Rt Status post trigger finger release Family History Father , age 71 of chronic leukemia Stroke Kidney stones Lung cancer Brother Skin cancer Uncle Myocardial infarction Other No family history of adverse response to anesthesia Denies family history of Ovarian cancer Prostate cancer Bipolar disorder Colorectal cancer Social History Smoking Status: Never smoker Second Hand Exposure: No; Do You Dip or Chew Tobacco: No; Hx Alcohol Use: No Hx Substance Use: No Preferred Language: Telugu Communication Ability: Effective Visual Impairment: No Limitations Hearing Ability: Normal Shuttle Buggy Operator Required: No Beliefs That Will Affect Care: None marital status: Current Living Situation: Spouse current occupational status: 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 Feels Safe at Home: Yes Safety Concerns: Feels Safe At This Time Childhood Exposure to Second-Hand Smoke: No Dental Care, Regularly: Yes Physical Activity Frequency: 3-4 Times per Week Physical Activity Frequency Comment: walking Seatbelt Use: always Sunscreen Use: Yes Assistive Devices: Glasses Physical Exam Physical Exam: Physical Exam: General: In no acute distress, stated age, well-nourished, good hygiene HEENT: Normocephalic, atraumatic, no scleral icterus, pupils around round, symmetrical, and reactive to light, moist mucus membranes, trachea midline, no thyromegaly Chest/Pulm: No respiratory distress, symmetrical chest expansion/no sign of flail chest, decreased breath sounds in the right upper lung field, currently taking shallow breaths due to pain Cardiac: RRR, no murmurs noted Abdomen: Negative for ascites and bruising, normoactive bowel sounds, soft, non-tender to palpation throughout Musculoskeletal: upper and lower extremities with full ROM, no atrophy, spasticity, or flaccidity, no tenderness to palpation or acute trauma of the head, cervical spine, collar bones, and BL hips Extremities: Radial, dorsalis pedis, and posterior tibial pulses are intact and symmetrical, no edema noted in the BL LE's Skin: Warm, dry, no rashes , lesions, or scars noted Neuro: Alert and oriented to person, place, month, year, and president, no focal defects, CN II-XII tested and intact, no tremors noted Psych: No acute distress, calm and cooperative during the exam Results & Data Results & Data Vital Signs (Past 12 Hours) Vital Signs Temp Pulse Pulse Resp BP BP Pulse Ox 09/17/22 14:15 78 22 123/81 96 09/17/22 12:27 80 09/17/22 12:01 96 09/17/22 12:01 84 22 121/65 96 09/17/22 11:21 36.6 C 108 H 18 115/71 95 O2 Del Method 09/17/22 14:15 Room Air 09/17/22 12:27 09/17/22 12:01 Room Air 09/17/22 12:01 Room Air 09/17/22 11:21 Room Air Laboratory Results Abnormal lab results 09/17/22 09/17/22 Range/Units 11:58 11:58 WBC 12.49 H (4.8-10.8) K/ul RBC 4.23 L (4.70-6.10) M/uL Hgb 12.9 L (14.0-18.0) g/dl Hct 39.0 L (42.0-52.0) % Neut # (Auto) 10.80 H (1.40-6.50) K/uL Lymph # (Auto) 0.52 L (1.2-3.4) K/uL [place] # (Auto) 1.06 H (0.11-0.59) K/uL BUN 32 H (6-23) mg/dl BUN/Creatinine Ratio 39.5 H (10-20) Glucose 110 H (70-99(Fasting)) mg/dl Diagnostic Findings Abdomen/Pelvis CT 09/17/22 11:[address] WITH CONTRAST; CT ABDOMEN AND PELVIS WITH IV CONTRAST ONLY. HISTORY: Acute chest and abdominal pain status post fall. fall, right rib/flank pain, sob TECHNIQUE: Multiaxial CT images of the chest, abdomen and pelvis were performed following the IV administration of 90 cc of Optiray. A dose lowering technique was utilized adhering to the principles of ALARA. COMPARISON: The cervical spine of same day, CTA chest 09/14/2006. FINDINGS: CT CHEST: Unremarkable thyroid. No lymphadenopathy identified. Heart is normal in size. Extensive coronary artery calcifications. Ectasia of the aortic root, 3.9 cm. Unremarkable opacified pulmonary artery. Right-sided hydropneumothorax. Trace amount of pleural fluid. Pleural separation of the pneumothorax the level of the lung apex measures 9 mm and anteriorly measures up to approximately 2.5 cm. Mild right basilar atelectasis. 4 mm solid nodule of the apical segment right upper lobe is new from the prior exam. Subsegmental likely infectious or inflammatory tree-in-bud nodules of the inferior segment lingula. Airways are patent. Unremarkable soft tissues. Degenerative changes of the shoulders and spine. Acute undisplaced fracture of the posterior right 11th rib. Mild cortical angulation of the posterior right 10th and 12th ribs. Acute nondisplaced fractures lateral right eighth, ninth and 10th ribs. Mild superior endplate compression at T1 and T2 without retropulsion or paravertebral edema. Midthoracic dextroscoliosis. Mild subcutaneous emphysema of the right lateral chest wall. CT ABDOMEN/PELVIS: Unremarkable spleen, mildly atrophic pancreas and adrenal glands. Gallbladder and liver appear unremarkable. Patency of the hepatic and portal veins. There are a few punctate nonobstructing bilateral renal calculi. Symmetric enhancement of the kidneys. Prostatomegaly. Distended urinary bladder with mild wall thickening. A penis pump device is in place. Atherosclerosis of the aorta witho ut aneurysm. No lymphadenopathy identified. No bowel obstruction or bowel wall thickening. Colonic diverticulosis. Moderate colonic fecal retention. Degenerative changes of the spine, pelvis and hips. IMPRESSION: 1. Acute right-sided rib fractures include an acute undisplaced fracture of the posterior right 10th rib. 2. Right-sided hydropneumothorax. 3. Mild age-indeterminate superior endplate compression at T1 and T2. No retropulsion. 4. No acute posttraumatic intra-abdominal or intrapelvic abnormality identified. 5. Nonobstructing bilateral nephrolithiasis. 6. Additional findings as above. ACT 112: Negative or not required by law. Electronically signed by: Marquis Dalal M.D. 09/17/2022 1:[address] 09/17/22 11:43 CT cervical spine wo con CT DOSE: 2048.80 mGy.cm CLINICAL HISTORY: 76 years-old Male with fall. Acute head and neck injury status post fall COMPARISON: Chest CT of same day, CTA chest 09/14/2006 TECHNIQUE: Multiple axial CT images of the cervical spine were obtained without contrast. A dose lowering technique was utilized adhering to the principles of ALARA. FINDINGS: Multilevel degenerative changes. No acute cervical spine fracture or subluxation identified. Mild superior endplate compression at T1 and T2 is new from the prior study. No associated retropulsion or appreciable prevertebral edema. The cervical soft tissues appear unremarkable. Small right apical pneumothorax. IMPRESSION: 1. No acute cervical spine fracture or subluxation identified. 2. Mild superior endplate compression at T1 and T2 without retropulsion or paravertebral edema are technically age indeterminate and are new from 09/14/2006. 3. Small right apical pneumothorax. Please refer to the chest CT of same day for additional findings. ACT 112: Negative or not required by law. The above report was generated using voice recognition software. It may contain grammatical, syntax or spelling errors. Electronically signed by: Marquis Dalal M.D. 09/17/2022 1:[address] 09/17/22 11:[address] WITH CONTRAST; CT ABDOMEN AND PELVIS WITH IV CONTRAST ONLY. HISTORY: Acute chest and abdominal pain status post fall. fall, right rib/flank pain, sob TECHNIQUE: Multiaxial CT images of the chest, abdomen and pelvis were performed following the IV administration of 90 cc of Optiray. A dose lowering technique was utilized adhering to the principles of ALARA. COMPARISON: The cervical spine of same day, CTA chest 09/14/2006. FINDINGS: CT CHEST: Unremarkable thyroid. No lymphadenopathy identified. Heart is normal in size. Extensive coronary artery calcifications. Ectasia of the aortic root, 3.9 cm. Unremarkable opacified pulmonary artery. Right-sided hydropneumothorax. Trace amount of pleural fluid. Pleural separation of the pneumothorax the level of the lung apex measures 9 mm and anteriorly measures up to approximately 2.5 cm. Mild right basilar atelectasis. 4 mm solid nodule of the apical segment right upper lobe is new from the prior exam. Subsegmental likely infectious or inflammatory tree-in-bud nodules of the inferior segment lingula. Airways are patent. Unremarkable soft tissues. Degenerative changes of the shoulders and spine. Acute undisplaced fracture of the posterior right 11th rib. Mild cortical angulation of the posterior right 10th and 12th ribs. Acute nondisplaced fractures lateral right eighth, ninth and 10th ribs. Mild superior endplate compression at T1 and T2 without retropulsion or paravertebral edema. Midt horacic dextroscoliosis. Mild subcutaneous emphysema of the right lateral chest wall. CT ABDOMEN/PELVIS: Unremarkable spleen, mildly atrophic pancreas and adrenal glands. Gallbladder and liver appear unremarkable. Patency of the hepatic and portal veins. There are a few punctate nonobstructing bilateral renal calculi. Symmetric enhancement of the kidneys. Prostatomegaly. Distended urinary bladder with mild wall thickening. A penis pump device is in place. Atherosclerosis of the aorta without aneurysm. No lymphadenopathy identified. No bowel obstruction or bowel wall thickening. Colonic diverticulosis. Moderate colonic fecal retention. Degenerative changes of the spine, pelvis and hips. IMPRESSION: 1. Acute right-sided rib fractures include an acute undisplaced fracture of the posterior right 10th rib. 2. Right-sided hydropneumothorax. 3. Mild age-indeterminate superior endplate compression at T1 and T2. No retropulsion. 4. No acute posttraumatic intra-abdominal or intrapelvic abnormality identified. 5. Nonobstructing bilateral nephrolithiasis. 6. Additional findings as above. ACT 112: Negative or not required by law. Electronically signed by: Marquis Dalal M.D. 09/17/2022 1:[address] 09/17/22 11:44 CT head/brain wo con CLINICAL HISTORY: 76 years-old Male with fall. Acute head trauma status post fall TECHNIQUE: Multiple axial CT images of the head were obtained without contrast. A dose lowering technique was utilized adhering to the principles of ALARA. COMPARISON: Brain MRI 06/21/2022 FINDINGS: No acute intracranial hemorrhage, midline shift, intracranial mass, hydrocephalus, territorial ischemia or abnormal extra-axial collection. Involutional changes with mild chronic microvascular ischemic disease again noted. Central pontine calcifications are again seen. The calvarium is intact. Prior left-sided lens repair. The paranasal sinuses, mastoid air cells, and middle ear cavities are clear. IMPRESSION: No acute intracranial abnormality or calvarial fracture. ACT 112: Negative or not required by law. The above report was generated using voice recognition software. It may contain grammatical, syntax or spelling errors. Electronically signed by: Marquis Dalal M.D. 09/17/2022 1:02 PM ECG Additional Comments: Normal sinus rhythm Right bundle branch block Abnormal ECG When compared with ECG of 05-OCT-2020 04:34, No significant change was found Code Status & VTE Plan Code Status Full code VTE Prophylaxis Plan VTE Prophylaxis will be ordered: Yes Reason for no VTE drug order: Contraindicated Supervising Physician Co-Signing Physician Notes I personally saw and examined the patient. I verified all rider points and agree with Micha Anaya PA-C with the following exceptions and/or additions: 76 year old male with traumatic fall earlier today resulting in 5 rib fractures and hydropneumothorax. O/E HS RRR, no murmurs, Chest CTAB with poor respiratory effort, right side of chest painful to palpation, Abdo SNT A/P Traumatic 5 rib fracture and hydropneumothorax - ER discussed with trauma center and recommended ok to stay here with conservative management as long as pulmonology happy to follow, Discussed with ICU/pulmonology Dr Romero and agreed for patient to stay here on PCU, Pain control, 15LPM O2 non-rebreather, repeat CXR in AM. PG Care Time/CCT Total # of Minutes Spent Total Time Spent with Patient: Total time spent is greater than 50% in coordination of care (as documented) at patient's floor/unit and/or counseling patient: Coding [place] [address] INT INP/OBS CARE 3/75MIN Patient Type Established Medical Decision Making High Complexity Diagnoses Fall from standing W19.XXXA Pneumothorax J93.9 Multiple fractures of ribs S22.49XA Gait disturbance R26.9 CAD (coronary artery disease) I25.10 Dyslipidemia E78.5 HTN (hypertension) I10
[2022-09-17] MEDS ORDERED: ACETAMINOPHEN 325 MG TAB PO STA (15:30)
[2022-09-17] MEDS ORDERED: DOCUSATE SODIUM/SENNA 50/8.6MG TAB PO PRN (17:06)
--- NOTE | 2022-09-17 17:22 | XRay Report ---
XR chest 1V portable HISTORY: 76 years-old Male f/u right-sided pneumothorax follow-up study in a patient with right-side d pneumothorax COMPARISON: Chest CT of same day TECHNIQUE: AP view of the chest FINDINGS: Right hydropneumothorax with apical pleural separation 3.6 cm. Right-sided rib fractures again noted. Mild bibasilar atelectasis. Heart size is normal. No overt pulmonary edema. IMPRESSION: 1. Right-sided hydropneumothorax with apical pleural separation of 3.6 cm. 2. Acute right-sided rib fractures are better seen on the chest CT of same day. ACT 112: Negative or not required by law. The above report was generated using voice recognition software. It may contain grammatical, syntax o r spelling errors. Electronically signed by: Marquis Dalal M.D. 09/17/2022 5:21 PM
[2022-09-17] MEDS: MoRPHine SULFATE 2 MG/ML CARP IV PRN ×2 (17:31→22:57)
[2022-09-17] MEDS: PANTOprazole 40 MG TAB PO SCH (20:06)
[2022-09-17] MEDS: ATORVASTATIN 40 MG TAB PO SCH (20:06)
[2022-09-17] MEDS: MAGNESIUM OXIDE 400 MG TAB PO SCH (20:06)
[2022-09-17 20:16] LABS: Appearance Urine Clear (Clear); Bilirubin Urine Negative (Negative); Blood Urine Negative (Negative); Color Urine Yellow; Glucose Urine UA Negative (Negative); Ketones Urine Negative (Negative); Leukocyte Esterase Urine Negative (Negative); Nitrite Urine Negative (Negative); Protein Urine Negative (Negative); Specific Gravity Urine > 1.045 (1.000-1.030); Urobilinogen Urine Negative (Negative); pH Urine 7.5 (4.5-7.5)
[2022-09-17] MEDS: ACETAMINOPHEN 325 MG TAB PO SCH (22:57)
[2022-09-18] MEDS: MoRPHine SULFATE 2 MG/ML CARP IV PRN ×4 (03:37→17:29)
[2022-09-18] MEDS: ACETAMINOPHEN 325 MG TAB PO SCH ×4 (03:38→20:59)
[2022-09-18 07:02] LABS: Basophils # (auto) 0.03 K/uL (0-0.2); Basophils % (auto) 0.3 %; Eosinophils # (auto) 0.14 K/uL (0-0.50); Eosinophils % (auto) 1.6 %; Hematocrit (blood only) 39.8 % (42.0-52.0); Hemoglobin 13.2 g/dl (14.0-18.0); Immature Granulocytes # (auto) 0.04 K/uL (0.01-0.20); Immature Granulocytes % (auto) 0.4 %; Lymphocytes # (auto) 1.05 K/uL (1.2-3.4); Lymphocytes % (auto) 11.7 %; Mean Corpuscular Hemoglobin 30.5 pg (25.0-34.0); Mean Corpuscular Hgb Conc 33.2 g/dL (32.0-36.0); Mean Corpuscular Volume 91.9 fL (80.0-100.0); Mean Platelet Volume 10.2 fL (9.4-12.4); Monocytes # (auto) 0.81 K/uL (0.11-0.59); Monocytes % (auto) 9.1 %; Neutrophils # (auto) 6.88 K/uL (1.40-6.50); Neutrophils % (auto) 76.9 %; Platelet Count 155 K/uL (130-400); RDW Coefficient of Variation 13.2 % (11.5-14.5); RDW Standard Deviation 44.6 fL (36.4-46.3); Red Blood Count 4.33 M/uL (4.70-6.10); White Blood Count 8.95 K/ul (4.8-10.8)
[2022-09-18 07:22] LABS: BUN Creatinine Ratio 30.9 (10-20); Calcium 8.8 mg/dl (8.6-10.3); Creatinine Clr Calc Pharmacy 78.5 ml/min; Est GFR (African American) 106.8 ml/min; Est GFR (Non-African American) 92.1 ml/min; Potassium 3.7 mmol/L (3.5-5.1)
[2022-09-18] MEDS: PANTOprazole 40 MG TAB PO SCH ×2 (07:43→17:17)
--- NOTE | 2022-09-18 08:00 | XRay Report ---
XR chest 1V portable HISTORY: Pneumothorax. Follow-up. COMPARISON: Chest 09/17/2022. FINDINGS: The right-sided pneumothorax has slightly decreased in size. This demonstrate a maximal ple ural gap of 2.6 cm. The heart is stable in size. Trace right pleural effusion is again noted. No left -sided pneumothorax. There are bibasilar densities which favor atelectasis. The patient's right-sided rib fractures are better appreciated on the prior chest CT. IMPRESSION: Slight decrease in size of the right pneumothorax. ACT 112: Negative or not required by law. Electronically signed by: Jaime Camarillo M.D. 09/18/2022 7:58 AM
[2022-09-18] MEDS: MAGNESIUM OXIDE 400 MG TAB PO SCH ×2 (08:11→20:58)
[2022-09-18] MEDS: ASPIRIN 81 MG ECTAB PO SCH (08:11)
[2022-09-18] MEDS: METOPROLOL SUCC 25MG EXT REL TAB PO SCH (08:12)
[2022-09-18] MEDS: SERTRALINE HCL 50 MG TABLET PO SCH (08:12)
--- NOTE | 2022-09-18 08:23 | Hospitalist Progress Note ---
Date of Service September 18, 2022 Assessment & Plan (1) Fall from standing: Plan: -Has chronic balance issues with gait abnormalities causing a mechanical, ground-level fall - right 8th-12th, non-displaced rib fractures -Pain control per rib fracture plan -Will have him evaluated by PT and OT prior to discharge (2) Pneumothorax: Plan: -Patient with acute right apical pneumothorax on CT of the chest - -Was evaluated by Pulmonology who is comfortable with the patient being managed here after discussions with [facility] -Continue O2 per Non-rebreather. -PO tylenol q6h scheduled and hydromorphone Toradol and Lidoderm patch (3) Gait disturbance: Plan: -PT/OT consults placed (4) HTN (hypertension): Plan: -Stable -Continue metoprolol Admission and Anticipated Discharge Date Admission Date: September 17, 2022 Subjective Patient has persistent right-sided chest discomfort and some gait instability gait instability seems to be pre-existing but certainly opiate pain control for his rib fractures or not helping will need PT OT evaluation Physical Exam Physical Exam: Chest wall is tender to touch tender to deep excursion there is no subcutaneous crepitance there is no pleural rub Results & Data Results & Data Vital Signs (Past 12 Hours) Vital Signs Temp Pulse Resp BP Pulse Ox O2 Del Method O2 Flow Rate 09/18/22 03:00 98.2 F 70 16 126/74 100 Non-rebreather 15 09/17/22 22:36 97.9 F 68 18 126/99 100 Non-rebreather 15 09/17/22 21:02 Non-rebreather Laboratory Results Reviewed CBC reviewed chemistry PG Care Time/CCT Total # of Minutes Spent Total Time Spent with Patient: Total time spent is greater than 50% in coordination of care (as documented) at patient's floor/unit and/or counseling patient: Coding Level of Care Code 30583 SUB INP/OBS CARE 2/35MIN Diagnoses Fall from standing W19.XXXA Pneumothorax J93.9 Gait disturbance R26.9 HTN (hypertension) I10
--- NOTE | 2022-09-18 08:34 | Electrocardiogram Report ---
Test Reason : Blood Pressure : / mmHG Vent. Rate : 085 BPM Atrial Rate : 085 BPM P-R Int : 154 ms QRS Dur : 148 ms QT Int : 416 ms P-R-T Axes : 062 104 041 degrees QTc Int : 495 ms Normal sinus rhythm Right bundle branch block Abnormal ECG When compared with ECG of 05-OCT-2020 04:34, No significant change was found Confirmed by Fredy Powell ([id number]) on 09/18/2022 8:34:21 AM Referred By: REFERRED SELF Confirmed By:Fredy Powell
--- NOTE | 2022-09-18 09:09 | Pulmonology Progress Note ---
Date of Service September 18, 2022 Assessment & Plan (1) Multiple fractures of ribs: (2) Pneumothorax: Plan CT chest 09/17/2022 personally reviewed: Right-sided pneumothorax, dilated upper esophagus Dependent atelectasis bilateral lower lobes more on the right side No significant mediastinal lymphadenopathy -- Secondary pneumothorax Likely secondary to multiple rib fractures s/p fall Avoid positive pressure ventilation Antitussive medication [id number] Pain management Case was discussed with [place] trauma team by MERY Mehta and their recommendation was conservative management for the time being. --Multiple rib fractures S/p fall Management as per primary team Plan: Chest x-ray from today shows decrease in the size of the right-sided pneumothorax. Continue with nonrebreather Pain management. Add lidocaine patch for the right-sided pain Avoid positive airway ventilation Case was discussed with RN at bedside Please note the above document was generated using voice recognition software. It may contain grammatical, syntax or spelling errors.Any formal questions or concerns about the content, text or information contained within the body of this dictation should be directly addressed to the provider for clarification. Admission and Anticipated Discharge Date Admission Date: September 17, 2022 Subjective Patient seen and examined at bedside. Patient still complaining of right-sided chest pain when taking deep breath Denies any nausea vomiting Denies any shortness of breath No headache, does complain of some dizziness which might be related to morphine. His blood pressure has been stable Review of Systems Review of Systems: All systems reviewed & are unremarkable except as noted in Subjective Physical Exam Physical Exam: Constitutional: No acute distress HEENT: EOMI, PERRLA, no subcu emphysema Respiratory system: Decreased air entry on the right side, no wheeze, no rhonchi, mild crackles right lower lobe CVS: S1-S2 positive, no murmurs or gallops Abdomen: Soft, nontender, nondistended, positive bowel sounds x4 Extremities: +2 pulses bilaterally radialis/ dorsalis pedis, no cyanosis,+ 1 pitting edema bilateral lower extremity Neuro: Awake alert oriented x3 Psych: Normal mood and affect G/U: No Glover Musculoskeletal: Tenderness appreciated on the right lateral and posterior lateral ribs. No ecchymosis Skin: no rashes, warm and dry Lymphatic: no cervical or axillary lymphadenopathy Results & Data Results & Data Vital Signs (Past 12 Hours) Vital Signs Temp Pulse Resp BP Pulse Ox O2 Del Method O2 Flow Rate 09/18/22 07:00 36.9 C 77 18 131/74 96 Room Air 09/18/22 03:00 36.8 C 70 16 126/74 100 Non-rebreather 15 09/17/22 22:36 36.6 C 68 18 126/99 100 Non-rebreather 15 Laboratory Results 09/18/22 06:46 09/18/22 06:46 PG Care Time/CCT Total # of Minutes Spent Total Time Spent with Patient: Total time spent is greater than 50% in coordination of care (as documented) at patient's floor/unit and/or counseling patient: Coding Level of Care Code 62438 SUB INP/OBS CARE 3/50MIN Diagnoses Multiple fractures of ribs S22.49XA Pneumothorax J93.9
[2022-09-18] MEDS: LIDOCAINE 5% 1 PATCH TD SCH (13:32)
[2022-09-18] MEDS ORDERED: oxyCODONE HCL IR 5 MG TAB (IMMEDIATE RELEASE) PO PRN (17:42)
[2022-09-18] MEDS ORDERED: KETOROLAC TROMETHAMINE 15 MG/ML VIAL IV ONE (17:42)
[2022-09-18] MEDS ORDERED: HYDROmorphone INJ 1 MG/ML SYRINGE IV PRN (17:42)
[2022-09-18] MEDS ORDERED: HYDROmorphone INJ 0.5 MG/0.5 ML SYR IV PRN (17:42)
[2022-09-18] MEDS: ATORVASTATIN 40 MG TAB PO SCH (20:58)
[2022-09-19] MEDS: KETOROLAC TROMETHAMINE 15 MG/ML VIAL IV PRN ×2 (01:32→12:09)
[2022-09-19] MEDS: ACETAMINOPHEN 325 MG TAB PO SCH ×4 (03:53→20:39)
[2022-09-19 06:53] LABS: Basophils # (auto) 0.03 K/uL (0-0.2); Basophils % (auto) 0.3 %; Eosinophils # (auto) 0.13 K/uL (0-0.50); Eosinophils % (auto) 1.5 %; Hematocrit (blood only) 37.9 % (42.0-52.0); Hemoglobin 12.3 g/dl (14.0-18.0); Immature Granulocytes # (auto) 0.03 K/uL (0.01-0.20); Immature Granulocytes % (auto) 0.3 %; Lymphocytes # (auto) 0.95 K/uL (1.2-3.4); Lymphocytes % (auto) 10.6 %; Mean Corpuscular Hemoglobin 30.1 pg (25.0-34.0); Mean Corpuscular Hgb Conc 32.5 g/dL (32.0-36.0); Mean Corpuscular Volume 92.9 fL (80.0-100.0); Mean Platelet Volume 10.5 fL (9.4-12.4); Monocytes # (auto) 1.01 K/uL (0.11-0.59); Monocytes % (auto) 11.3 %; Neutrophils # (auto) 6.79 K/uL (1.40-6.50); Platelet Count 151 K/uL (130-400); RDW Coefficient of Variation 13.4 % (11.5-14.5); RDW Standard Deviation 45.5 fL (36.4-46.3); Red Blood Count 4.08 M/uL (4.70-6.10); White Blood Count 8.94 K/ul (4.8-10.8)
--- NOTE | 2022-09-19 07:05 | Pulmonology Progress Note ---
Date of Service September 19, 2022 Assessment & Plan (1) Multiple fractures of ribs: (2) Pneumothorax: Plan CT chest 09/17/2022 personally reviewed: Right-sided pneumothorax, dilated upper esophagus Dependent atelectasis bilateral lower lobes more on the right side No significant mediastinal lymphadenopathy -- Secondary pneumothorax Likely secondary to multiple rib fractures s/p fall Avoid positive pressure ventilation Antitussive medication [id number] Pain management Case was discussed with [place] trauma team by MERY Mehta and their recommendation was conservative management for the time being. --Multiple rib fractures S/p fall Management as per primary team Plan: Chest x-ray from today shows significant improvement in the right-sided pneumothorax. Small apical pneumothorax still persist. Continue with nonrebreather Pain management. Continue with lidocaine patch for the right-sided pain Avoid positive airway ventilation Case was discussed with RN at bedside Please note the above document was generated using voice recognition software. It may contain grammatical, syntax or spelling errors.Any formal questions or concerns about the content, text or information contained within the body of this dictation should be directly addressed to the provider for clarification. Admission and Anticipated Discharge Date Admission Date: September 17, 2022 Subjective Patient seen and examined at bedside. No acute distress, no adverse events overnight He was saturating 96% on room air. He was brushing his teeth Still complains of significant pain whenever he takes a deep breath in. Denies any nausea vomiting Fair appetite. No headache, no dizziness, no blurry vision Review of Systems Review of Systems: All systems reviewed & are unremarkable except as noted in Subjective Physical Exam Physical Exam: Constitutional: No acute distress HEENT: EOMI, PERRLA, no subcu emphysema Respiratory system: Decreased air entry on the right side, no wheeze, no rhonchi, mild crackles right lower lobe CVS: S1-S2 positive, no murmurs or gallops Abdomen: Soft, nontender, nondistended, positive bowel sounds x4 Extremities: +2 pulses bilaterally radialis/ dorsalis pedis, no cyanosis,+ 1 pit ting edema bilateral lower extremity Neuro: Awake alert oriented x3 Psych: Normal mood and affect G/U: No Glover Musculoskeletal: Tenderness appreciated on the right lateral and posterior lateral ribs. No ecchymosis Skin: no rashes, warm and dry Lymphatic: no cervical or axillary lymphadenopathy Results & Data Results & Data Vital Signs (Past 12 Hours) Vital Signs Temp Pulse Pulse Resp BP Pulse Ox O2 Del Method 09/19/22 02:40 36.8 C 73 14 110/68 98 Non-rebreather 09/18/22 23:00 36.5 C 70 16 116/57 L 98 Non-rebreather 09/18/22 23:09 68 09/18/22 21:14 Non-rebreather 09/18/22 20:57 107/59 L O2 Flow Rate 09/19/22 02:40 15 09/18/22 23:00 15 09/18/22 23:09 09/18/22 21:14 15 09/18/22 20:57 Laboratory Results 09/19/22 06:05 PG Care Time/CCT Total # of Minutes Spent Total Time Spent with Patient: Total time spent is greater than 50% in coordination of care (as documented) at patient's floor/unit and/or counseling patient: Coding Level of Care Code 44388 SUB INP/OBS CARE 2/35MIN Diagnoses Multiple fractures of ribs S22.49XA Pneumothorax J93.9
[2022-09-19 07:30] LABS: Calcium 8.9 mg/dl (8.6-10.3)
[2022-09-19 07:36] LABS: BUN Creatinine Ratio 39.2 (10-20); Creatinine Clr Calc Pharmacy 54.8 ml/min; Est GFR (African American) 86.9 ml/min
--- NOTE | 2022-09-19 08:17 | XRay Report ---
SINGLE VIEW CHEST CLINICAL HISTORY: Follow-up pneumothorax. FINDINGS: An AP, portable, upright chest radiograph is compared to study dated 09/18/2022. Correlation is made with chest CT dated 09/17/2022. The cardiomediastinal silhouette is top normal for projection noting atherosclerotic calcification of the thoracic aorta. Airspace opacities are seen in the right lung base. There is scarring/atelectasis seen at the left lung base. No large pleural effusion is id entified. There is trace residual right apical pneumothorax. The skeletal structures are osteopenic. Right-sided rib fractures were better assessed by CT. IMPRESSION: 1. There is trace residual right apical pneumothorax. This has decreased in size from yesterday. 2. Increasing airspace opacities at the right lung base likely represent atelectasis. Correlate clini mirtha. ACT 112: Negative or not required by law. Electronically signed by: Estevan Chavez M.D. 09/19/2022 8:16 AM
[2022-09-19] MEDS: SERTRALINE HCL 50 MG TABLET PO SCH (09:55)
[2022-09-19] MEDS: ASPIRIN 81 MG ECTAB PO SCH (09:55)
[2022-09-19] MEDS: MAGNESIUM OXIDE 400 MG TAB PO SCH ×2 (09:56→20:39)
[2022-09-19] MEDS: PANTOprazole 40 MG TAB PO SCH ×2 (09:56→16:59)
[2022-09-19] MEDS: LIDOCAINE 5% 1 PATCH TD SCH (09:56)
[2022-09-19] MEDS: METOPROLOL SUCC 25MG EXT REL TAB PO SCH (10:02)
--- NOTE | 2022-09-19 14:12 | Hospitalist Progress Note ---
Date of Service September 19, 2022 Assessment & Plan (1) Fall from standing: Plan: -Has chronic balance issues with gait abnormalities causing a mechanical, ground-level fall - right 8th-12th, non-displaced rib fractures -Pain control per rib fracture plan patient will have as needed opioids of oxycodone hydromorphone scheduled Ultram and Tylenol plus lidocaine patch PT OT evaluation suggested need for rehabilitation due to poor functional status due to pain (2) Pneumothorax: Plan: -Patient with acute right apical pneumothorax on CT of the chest - -Was evaluated by Pulmonology who is comfortable with the patient being managed here after discussions with [facility] -Continue O2 per Non-rebreather. (3) Gait disturbance: Plan: -PT/OT consults placed patient did poorly B12 level checked and intact (4) HTN (hypertension): Plan: -Stable -Continue metoprolol Admission and Anticipated Discharge Date Admission Date: September 17, 2022 Subjective Patient continues with suboptimal pain control Patient did poorly with physical therapy necessitating consideration of rehab Patient having intermittent effects of pain control with some dizziness lightheadedness. This however is what landed him in the hospital with his initial fall and likely may benefit from rehab due to gait instability Pneumothorax did not worsen not significantly improved still 100% nonrebreather when not eating Physical Exam Physical Exam: Chest wall is tender to touch tender to deep excursion there is no subcutaneous crepitance there is no pleural rub He is awake alert and appropriate Cardiac exam is regular Results & Data Results & Data Vital Signs (Past 12 Hours) Vital Signs Temp Pulse Pulse Resp BP Pulse Ox O2 Del Method 09/19/22 11:02 98.2 F 79 18 106/66 98 Non-rebreather 09/19/22 08:00 68 09/19/22 08:00 Room Air, Non-rebreather 09/19/22 07:40 98.2 F 73 18 98/64 L 98 Non-rebreather 09/19/22 02:40 98.2 F 73 14 110/68 98 Non-rebreather O2 Flow Rate 09/19/22 11:02 15 09/19/22 08:00 09/19/22 08:00 09/19/22 07:40 15 09/19/22 02:40 15 PG Care Time/CCT Total # of Minutes Spent Total Time Spent with Patient: Total time spent is greater than 50% in coordination of care (as documented) at patient's floor/unit and/or counseling patient: Coding Level of Care Code 97313 SUB INP/OBS CARE 2MIN Diagnoses Fall from standing W19.XXXA Pneumothorax J93.9 Gait disturbance R26.9 HTN (hypertension) I10
[2022-09-19] MEDS: traMADol HCL 50 MG TABLET PO SCH ×2 (15:23→20:39)
[2022-09-19] MEDS: ATORVASTATIN 40 MG TAB PO SCH (20:39)
[2022-09-20] MEDS: ACETAMINOPHEN 325 MG TAB PO SCH ×4 (03:52→20:23)
--- NOTE | 2022-09-20 07:32 | Pulmonology Progress Note ---
Date of Service September 20, 2022 Assessment & Plan (1) Multiple fractures of ribs: (2) Pneumothorax: Plan CT chest 09/17/2022 personally reviewed: Right-sided pneumothorax, dilated upper esophagus Dependent atelectasis bilateral lower lobes more on the right side No significant mediastinal lymphadenopathy -- Secondary pneumothorax Likely secondary to multiple rib fractures s/p fall Avoid positive pressure ventilation Antitussive medication [id number] Pain management Case was discussed with [place] trauma team by MERY Mehta and their recommendation was conservative management for the time being. --Multiple rib fractures S/p fall Management as per primary team Plan: Chest x-ray from today shows small right apical pneumothorax, right lower lobe atelectasis Okay to take the patient off nonrebreather Pain management. Continue with lidocaine patch for the right-sided pain Avoid positive airway ventilation Please note the above document was generated using voice recognition software. It may contain grammatical, syntax or spelling errors.Any formal questions or concerns about the content, text or information contained within the body of this dictation should be directly addressed to the provider for clarification. Admission and Anticipated Discharge Date Admission Date: September 17, 2022 Subjective Patient seen and examined at bedside. No acute distress, no adverse events overnight He was saturating 94-95% on room air. The right-sided pain is better but still there on deep inspiration Denies any nausea or vomiting Has been eating well. Still complains of dizziness when he gets up. No blurry vision Review of Systems Review of Systems: All systems reviewed & are unremarkable except as noted in Subjective Physical Exam Physical Exam: Constitutional: No acute distress HEENT: EOMI, PERRLA, no subcu emphysema Respiratory system: Decreased air entry on the right side, no wheeze, no rhonchi, mild crackles right lower lobe CVS: S1-S2 positive, no murmurs or gallops Abdomen: Soft, nontender, nondistended, positive bowel sounds x4 Extremities: +2 pulses bilaterally radialis/ dorsalis pedis, no cyanosis,+ 1 pitting edema bilateral lower extremity Neuro: Awake alert oriented x3 Psych: Normal mood and affect G/U: No Glover Musculoskeletal: Tenderness appreciated on the right lateral and posterior lateral ribs. No ecchymosis Skin: no rashes, warm and dry Lymphatic: no cervical or axillary lymphadenopathy Results & Data Results & Data Vital Signs (Past 12 Hours) Vital Signs Temp Pulse Pulse Pulse Resp BP Pulse Ox 09/20/22 00:12 09/20/22 00:01 36.8 C 78 16 112/70 99 09/19/22 23:18 88 09/19/22 22:40 36.7 C 76 18 108/64 98 09/19/22 20:11 37 C 86 18 108/62 99 09/19/22 19:54 O2 Del Method O2 Flow Rate 09/20/22 00:12 Non-rebreather 15 09/20/22 00:01 Non-rebreather 15 09/19/22 23:18 09/19/22 22:40 Non-rebreather 15 09/19/22 20:11 Non-rebreather 15 09/19/22 19:54 Non-rebreather 15 Laboratory Results 09/19/22 06:05 09/19/22 06:05 PG Care Time/CCT Total # of Minutes Spent Total Time Spent with Patient: Total time spent is greater than 50% in coordination of care (as documented) at patient's floor/unit and/or counseling patient: Coding Level of Care Code 34972 SUB INP/OBS CARE 2/35MIN Diagnoses Multiple fractures of ribs S22.49XA Pneumothorax J93.9
[2022-09-20 07:57] LABS: Basophils # (auto) 0.03 K/uL (0-0.2); Basophils % (auto) 0.3 %; Eosinophils % (auto) 2.2 %; Hematocrit (blood only) 40.9 % (42.0-52.0); Hemoglobin 13.5 g/dl (14.0-18.0); Immature Granulocytes # (auto) 0.04 K/uL (0.01-0.20); Immature Granulocytes % (auto) 0.4 %; Lymphocytes % (auto) 10.8 %; Mean Corpuscular Hemoglobin 30.1 pg (25.0-34.0); Mean Corpuscular Volume 91.3 fL (80.0-100.0); Mean Platelet Volume 9.9 fL (9.4-12.4); Monocytes % (auto) 8.6 %; Neutrophils % (auto) 77.7 %; Platelet Count 156 K/uL (130-400); RDW Coefficient of Variation 13.1 % (11.5-14.5); RDW Standard Deviation 44.1 fL (36.4-46.3); Red Blood Count 4.48 M/uL (4.70-6.10); White Blood Count 9.27 K/ul (4.8-10.8)
--- NOTE | 2022-09-20 07:59 | XRay Report ---
SINGLE VIEW CHEST CLINICAL HISTORY: Follow-up pneumothorax. FINDINGS: An AP, portable, upright chest radiograph is compared to study dated 09/19/2022. Correlation is made with chest CT dated 09/17/2022. The examination is degraded by portable technique and apical lordotic positioning. The cardiomediastinal silhouette is top normal for projection noting atheroscl erotic calcification of the thoracic aorta. Airspace opacities are again seen in the right lung base. There is scarring/atelectasis seen at the left lung base. No large pleural effusion is identified. T here is likely trace residual right apical pneumothorax. The skeletal structures are osteopenic. Righ t-sided rib fractures were better assessed by CT. IMPRESSION: 1. There is likely trace residual right apical pneumothorax. This has decreased in size from yesterda y. 2. Airspace opacities are again seen at the medial right lung base and likely represent atelectasis. Correlate clinically. ACT 112: Negative or not required by law. Electronically signed by: Estevan Chavez M.D. 09/20/2022 7:57 AM
[2022-09-20 08:20] LABS: BUN Creatinine Ratio 48.6 (10-20); Calcium 8.9 mg/dl (8.6-10.3); Creatinine Clr Calc Pharmacy 71.9 ml/min; Est GFR (African American) 103.1 ml/min; Potassium 3.9 mmol/L (3.5-5.1)
[2022-09-20] MEDS: LIDOCAINE 5% 1 PATCH TD SCH (09:21)
[2022-09-20] MEDS: METOPROLOL SUCC 25MG EXT REL TAB PO SCH (09:21)
[2022-09-20] MEDS: PANTOprazole 40 MG TAB PO SCH ×2 (09:21→17:20)
[2022-09-20] MEDS: MAGNESIUM OXIDE 400 MG TAB PO SCH ×2 (09:21→20:21)
[2022-09-20] MEDS: ASPIRIN 81 MG ECTAB PO SCH (09:21)
[2022-09-20] MEDS: SERTRALINE HCL 50 MG TABLET PO SCH (09:23)
[2022-09-20] MEDS: traMADol HCL 50 MG TABLET PO SCH ×3 (09:27→20:20)
[2022-09-20] MEDS: KETOROLAC TROMETHAMINE 15 MG/ML VIAL IV PRN (12:05)
[2022-09-20] MEDS ORDERED: Nursing to Pharmacy Communication SCH (13:00)
[2022-09-20] MEDS ORDERED: POLYETHYLENE (MIRALAX) 17 GM PACK PO ONE (13:30)
--- NOTE | 2022-09-20 17:56 | Hospitalist Progress Note ---
Date of Service September 20, 2022 Assessment & Plan (1) Fall from standing: Plan: -Has chronic balance issues with gait abnormalities causing a mechanical, ground-level fall - right 8th-12th, non-displaced rib fractures -Pain control per rib fracture plan patient will have as needed opioids of oxycodone hydromorphone scheduled Ultram and Tylenol plus lidocaine patch Pain is improving as patient is healing with time PT OT evaluation suggested need for rehabilitation due to poor functional status due to pain (2) Pneumothorax: Plan: -Patient with acute right apical pneumothorax on CT of the chest - -Was evaluated by Pulmonology who is comfortable with the patient being managed here after discussions with [facility] -As noted pneumothorax has receded will no longer need nonrebreather therapy (3) Gait disturbance: Plan: -PT/OT consults placed patient did poorly B12 level checked and intact (4) HTN (hypertension): Plan: -Stable -Continue metoprolol Admission and Anticipated Discharge Date Admission Date: September 17, 2022 Subjective Patient seen and examined at bedside. No acute distress, no adverse events overnight Patient is asking for medications for constipation Still with chest wall pain with movement still planning on rehabilitation relief of nonrebreather by pulmonary medicine Physical Exam Physical Exam: Chest wall is much less tender to touch tender but worsens with movement of torso and deep excursion He is awake alert and appropriate Cardiac exam is regular Results & Data Results & Data Vital Signs (Past 12 Hours) Vital Signs Temp Pulse Resp BP Pulse Ox O2 Del Method O2 Flow Rate 09/20/22 15:11 97.7 F 86 16 102/62 95 Room Air 09/20/22 07:28 97.7 F 88 16 120/74 100 Non-rebreather 15 Laboratory Results Reviewed CBC reviewed chemistry PG Care Time/CCT Total # of Minutes Spent Total Time Spent with Patient: Total time spent is greater than 50% in coordination of care (as documented) at patient's floor/unit and/or counseling patient: Coding Level of Care Code 05173 SUB INP/OBS CARE 2/35MIN Diagnoses Fall from standing W19.XXXA Pneumothorax J93.9 Gait disturbance R26.9 HTN (hypertension) I10
[2022-09-20] MEDS: ATORVASTATIN 40 MG TAB PO SCH (20:21)
[2022-09-21] MEDS: ACETAMINOPHEN 325 MG TAB PO SCH ×4 (03:33→21:29)
[2022-09-21] MEDS ORDERED: guaiFENesin 600 MG TABCR PO PRN (04:57)
--- NOTE | 2022-09-21 07:53 | XRay Report ---
XR chest 1V portable HISTORY: Follow-up right-sided pneumothorax. COMPARISON: Chest 09/20/2022. FINDINGS: A tiny right apical pneumothorax is again noted. This remains unchanged. No left-sided pneu mothorax. The heart is normal in size. The left lung is clear. There is a hazy appearance to the righ t medial lung base, unchanged. This mildly tortuous thoracic aorta. IMPRESSION: 1. No change in the tiny right apical pneumothorax. 2. Right medial lung base airspace opacities persist. ACT 112: Negative or not required by law. Electronically signed by: Jaime Camarillo M.D. 09/21/2022 7:52 AM
[2022-09-21] MEDS: PANTOprazole 40 MG TAB PO SCH ×2 (08:32→16:07)
--- NOTE | 2022-09-21 09:00 | Pulmonology Progress Note ---
Date of Service September 21, 2022 Assessment & Plan (1) Multiple fractures of ribs: (2) Pneumothorax: Plan CT chest 09/17/2022 personally reviewed: Right-sided pneumothorax, dilated upper esophagus Dependent atelectasis bilateral lower lobes more on the right side No significant mediastinal lymphadenopathy -- Secondary pneumothorax Likely secondary to multiple rib fractures s/p fall Avoid positive pressure ventilation Antitussive medication [id number] Pain management Case was discussed with [place] trauma team by ER Kameron Mehta and their recommendation was conservative management for the time being. --Multiple rib fractures S/p fall Management as per primary team Plan: Chest x-ray from today shows stable tiny right apical pneumothorax. Atelectasis on the right lower lobe Pain management. Continue with lidocaine patch for the right-sided pain Avoid positive airway ventilation Recommend chest x-ray approximately a week from discharge and follow-up with primary care Case was discussed with Dr. Fox No further recommendation from pulmonary perspective, will sign off Please call directly with any questions Please note the above document was generated using voice recognition software. It may contain grammatical, syntax or spelling errors.Any formal questions or concerns about the content, text or information contained within the body of this dictation should be directly addressed to the provider for clarification. Admission and Anticipated Discharge Date Admission Date: September 17, 2022 Subjective Patient seen and examined at bedside. No acute distress, no events overnight Still complains of chest pain which is worse with taking deep breath. He was saturating 94-95% on room air. Denies any headache, still complains of dizziness especially when changing position. He has a tendency to lean towards right side whenever he stands up No nausea vomiting Fair appetite Review of Systems Review of Systems: All systems reviewed & are unremarkable except as noted in Subjective Physical Exam Physical Exam: Constitutional: No acute distress HEENT: EOMI, PERRLA, no subcu emphysema Respiratory system: Decreased air entry on the right side, no wheeze, no rhonchi, mild crackles right lower lobe CVS: S1-S2 positive, no murmurs or gallops Abdomen: Soft, nontender, nondistended, positive bowel sounds x4 Extremities: +2 pulses bilaterally radialis/ dorsalis pedis, no cyanosis,+ 1 pitting edema bilateral lower extremity Neuro: Awake alert oriented x3 Psych: Normal mood and affect G/U: No Glover Musculoskeletal: Tenderness appreciated on the right lateral and posterior lateral ribs. No ecchymosis Skin: no rashes, warm and dry Lymphatic: no cervical or axillary lymphadenopathy Results & Data Results & Data Vital Signs (Past 12 Hours) Vital Signs Temp Pulse Resp BP Pulse Ox O2 Del Method 09/21/22 08:16 36.6 C 76 18 108/66 94 Room Air 09/21/22 07:37 Room Air 09/20/22 21:27 37.1 C 80 18 100/45 L 96 Room Air Laboratory Results 09/20/22 07:38 09/20/22 07:38 PG Care Time/CCT Total # of Minutes Spent Total Time Spent with Patient: Total time spent is greater than 50% in coordination of care (as documented) at patient's floor/unit and/or counseling patient: Coding Level of Care Code 92784 SUB INP/OBS CARE 2/35MIN Diagnoses Multiple fractures of ribs S22.49XA Pneumothorax J93.9
[2022-09-21] MEDS: MAGNESIUM OXIDE 400 MG TAB PO SCH ×2 (10:15→21:29)
[2022-09-21] MEDS: SERTRALINE HCL 50 MG TABLET PO SCH (10:15)
[2022-09-21] MEDS: LIDOCAINE 5% 1 PATCH TD SCH (10:15)
[2022-09-21] MEDS: ASPIRIN 81 MG ECTAB PO SCH (10:15)
[2022-09-21] MEDS: METOPROLOL SUCC 25MG EXT REL TAB PO SCH (10:15)
[2022-09-21] MEDS: POLYETHYLENE (MIRALAX) 17 GM PACK PO SCH (10:16)
[2022-09-21] MEDS: traMADol HCL 50 MG TABLET PO SCH ×3 (10:19→21:29)
[2022-09-21] MEDS: KETOROLAC TROMETHAMINE 15 MG/ML VIAL IV PRN (11:27)
--- NOTE | 2022-09-21 16:28 | Hospitalist Progress Note ---
Date of Service September 21, 2022 Assessment & Plan (1) Fall from standing: Plan: -Has chronic balance issues with gait abnormalities causing a mechanical, ground-level fall Previous work-up included neurology evaluation ENT evaluation and audiology evaluation without good resolution of his symptom complex - right 8th-12th, non-displaced rib fractures -Pain control per rib fracture plan patient will have as needed opioids of oxycodone hydromorphone scheduled Ultram and Tylenol plus lidocaine patch Pain is improving as patient is healing with time PT OT evaluation suggested need for rehabilitation due to poor functional status due to pain (2) Pneumothorax: Plan: -Patient with acute right apical pneumothorax on CT of the chest - -Was evaluated by Pulmonology who is comfortable with the patient being managed here after discussions with [facility] -As noted pneumothorax has receded will no longer need nonrebreather therapy (3) Gait disturbance: Plan: -PT/OT consults placed patient did poorly B12 level checked and intact (4) HTN (hypertension): Plan: -Stable -Continue metoprolol Plan Patient suffers from severe malnutrition with recent significant weight loss Admission and Anticipated Discharge Date Admission Date: September 17, 2022 Subjective Patient is on the phone with my evaluation and continued talk to his in no respiratory distress was previously seen by cardiology who feels his pulmonary condition is in good shape however he was other by persistent gait instability and dizziness Physical Exam Physical Exam: Patient was having no dyspnea with conversations with his which was quite likely on the telephone The time my visit he was sitting in could not assess his gait Results & Data Results & Data Vital Signs (Past 12 Hours) Vital Signs Temp Pulse Resp BP Pulse Ox O2 Del Method 09/21/22 15:51 97.9 F 80 18 103/64 92 Room Air 09/21/22 08:16 97.9 F 76 18 108/66 94 Room Air 09/21/22 07:37 Room Air PG Care Time/CCT Total # of Minutes Spent Total Time Spent with Patient: Total time spent is greater than 50% in coordination of care (as documented) at patient's floor/unit and/or counseling patient: Coding Level of Care Code 83381 SUB INP/OBS CARE 2/35MIN Diagnoses Fall from standing W19.XXXA Pneumothorax J93.9 Gait disturbance R26.9 HTN (hypertension) I10
[2022-09-21] MEDS ORDERED: COUGH DROP (SUGAR FREE) LOZ 24 LOZ/1 BOX BUCCAL STA (20:17)
[2022-09-21] MEDS: ATORVASTATIN 40 MG TAB PO SCH (21:29)
[2022-09-22] MEDS: ACETAMINOPHEN 325 MG TAB PO SCH ×4 (03:36→21:17)
[2022-09-22] MEDS: KETOROLAC TROMETHAMINE 15 MG/ML VIAL IV PRN ×2 (03:42→13:18)
--- NOTE | 2022-09-22 07:41 | XRay Report ---
XR chest 1V portable HISTORY: 76 years-old Male f/u acute shortness of breath COMPARISON: Chest radiograph 09/21/2022, chest CT 09/17/2022. TECHNIQUE: AP view of the chest FINDINGS: Cardiomediastinal and hilar silhouettes are within normal limits. Unchanged tiny apical pneumothorax with pleural separation of approximately 2 mm. No pleural effusion or overt pulmonary edema. Mild per sistent opacities at medial right lung base. Degenerative changes of the shoulders and spine. Right-s ided rib fractures are again noted. IMPRESSION: 1. Unchanged trace right apical pneumothorax with right-sided rib fractures again noted. 2. Ill-defined opacities of the medial right lung base redemonstrated. ACT 112: Negative or not required by law. The above report was generated using voice recognition software. It may contain grammatical, syntax o r spelling errors. Electronically signed by: Marquis Dalal M.D. 09/22/2022 7:40 AM
--- NOTE | 2022-09-22 08:11 | Pulmonology Progress Note ---
Date of Service September 22, 2022 Assessment & Plan (1) Multiple fractures of ribs: (2) Pneumothorax: Plan CT chest 09/17/2022 personally reviewed: Right-sided pneumothorax, dilated upper esophagus Dependent atelectasis bilateral lower lobes more on the right side No significant mediastinal lymphadenopathy -- Secondary pneumothorax Likely secondary to multiple rib fractures s/p fall Avoid positive pressure ventilation Antitussive medication [id number] Pain management Case was discussed with [place] trauma team by ER Kameron Mehta and their recommendation was conservative management for the time being. --Multiple rib fractures S/p fall Management as per primary team --Dizziness Plan as per primary team Plan: Chest x-ray from today shows minimal right apical pneumo, right lower lobe atelectasis has improved Pain management. Continue with lidocaine patch for the right-sided pain Avoid positive airway ventilation Recommend chest x-ray approximately a week from discharge and follow-up with primary care Case was discussed with Dr. Brink No further recommendation from pulmonary perspective, will sign off Please call directly with any questions Please note the above document was generated using voice recognition software. It may contain grammatical, syntax or spelling errors.Any formal questions or concerns about the content, text or information contained within the body of this dictation should be directly addressed to the provider for clarification. Admission and Anticipated Discharge Date Admission Date: September 17, 2022 Subjective Patient seen and examined at bedside. No acute distress, no adverse events overnight Chest pain is better controlled but still there when taking deep breaths Denies any headache, no nausea, no vomiting Still complains of dizziness which can be positional. Not coughing up anything. Was saturating well on room air Review of Systems Review of Systems: All systems reviewed & are unremarkable except as noted in Subjective Physical Exam Physical Exam: Constitutional: No acute distress HEENT: EOMI, PERRLA, no subcu emphysema Respiratory system: Decreased air entry on the right side, no wheeze, no rhonchi, mild crackles right lower lobe CVS: S1-S2 positive, no murmurs or gallops Abdomen: Soft, nontender, nondistended, positive bowel sounds x4 Extremities: +2 pulses bilaterally radialis/ dorsalis pedis, no cyanosis,+ 1 pitting edema bilateral lower extremity Neuro: Awake alert oriented x3 Psych: Normal mood and affect G/U: No Glover Musculoskeletal: Tenderness appreciated on the right lateral and posterior lateral ribs. No ecchymosis Skin: no rashes, warm and dry Lymphatic: no cervical or axillary lymphadenopathy Results & Data Results & Data Vital Signs (Past 12 Hours) Vital Signs Temp Pulse Resp BP Pulse Ox O2 Del Method 09/22/22 07:32 36.5 C 73 18 107/64 95 Room Air 09/21/22 22:34 36.6 C 79 18 114/65 96 Room Air Laboratory Results 09/20/22 07:38 09/20/22 07:38 PG Care Time/CCT Total # of Minutes Spent Total Time Spent with Patient: Total time spent is greater than 50% in coordination of care (as documented) at patient's floor/unit and/or counseling patient: Coding Level of Care Code 39619 SUB INP/OBS CARE 2/35MIN Diagnoses Multiple fractures of ribs S22.49XA Pneumothorax J93.9
[2022-09-22] MEDS: PANTOprazole 40 MG TAB PO SCH ×2 (08:25→17:19)
[2022-09-22] MEDS: traMADol HCL 50 MG TABLET PO SCH ×2 (09:47→13:30)
--- NOTE | 2022-09-22 09:47 | Hospitalist Progress Note ---
Date of Service September 22, 2022 Assessment & Plan (1) Pneumothorax: Plan: Secondary to multiple rib fractures from ground-level fall Patient continues with small apical pneumothorax which appears to be stable Follow-up with chest x-ray in 7 days No indication for intervention with chest tube or needle decompression this is admission No chest pain No deviation of trachea No paradoxical wall motion of the chest (2) Multiple fractures of ribs: Plan: Multiple old rib fractures and no evidence of flail chest Patient continues with significant pain especially with deep inspiration Discussed splinting with a pillow with cough and deep breathing Patient encouraged to use incentive spirometer Will schedule Toradol and change tramadol to as needed Increase ambulation as tolerated (3) Gait disturbance: Plan: This seems to be chronic and developing Most likely this contributed to fall PT/OT evaluation and treatment -recommend rehabilitation due to poor functional status and pain Previous work-up included neurology evaluation ENT evaluation and audiology evaluation without good resolution of his symptom complex (4) CAD (coronary artery disease): Plan: No chest pain or tightness other than associated with acute rib fractures Continue with metoprolol succinate 25 mg daily, atorvastatin, aspirin Hemodynamically stable (5) Fall from standing: Plan: PT/OT evaluation and treatment -recommend rehabilitation due to poor functional status and pain Previous work-up included neurology evaluation ENT evaluation and audiology evaluation without good resolution of his symptom complex Patient is reporting some dizziness. Denies vertigo. No nystagmus on examination. Activity with assistance Continue to increase ambulation as well as continue treatment with PT/OT (6) Celiac disease: Plan: Gluten-free diet (7) Dyslipidemia: Plan: Continue atorvastatin (8) Dysphagia: Plan: Continue with aspiration precautions (9) Dizziness: Plan: Patient positive for orthostasis with drop of systolic blood pressure greater than 20 mmHg from sitting to standing. No significant increase in heart rate (80 to 87 bpm) Previous work-up included neurology evaluation ENT evaluation and audiology evaluation without good resolution of his symptom complex Patient does have right-sided impaction of cerumen in the external ear canal. U nable to visualize tympanic membrane Some cerumen in the left external ear canal. Able to visualize tympanic membrane which is clear with no evidence of air-fluid levels or bulging. We will order Debrox solution 5 drops each ear starting now and then twice daily (10) DVT prophylaxis: Plan: Increase activity as tolerated Chemical prophylaxis has been held secondary to patient's recent fall with multiple rib fractures Plan Disposition: Case management is following. Referrals been placed to [facility] and authorization is currently pending. Backup referral made to [facility]. Patient is aware that he needs placement prior to going home for rehab Admission and Anticipated Discharge Date Admission Date: September 17, 2022 Subjective Attending: Dr. Brink This is a 76 year old male with a PMH significant for CAD, dyslipidemia, mild intermittent asthma, HTN who presented to the [facility] ED on 09/17/22 with a chief complaint of a fall at home.He was found to have multiple rib fractures and a right sided pneumothorax. Dr. Romero from pulmonary agreed to manage the PNX. CXR today shows persistent right apical pneumothorax. No chest tube or decompression was required. SaO2 is 95% on room air. Patient also with severe malnutrition with BMI of 19.2 kg/m. Patient has been referred to [facility] for rehabilitation. Currently awaiting authorization. There is also a backup referral to [facility]. Patient continues to be followed by case management. Patient reports that he is feeling better but is now having dizziness. He states he has a fullness in his right ear. He can hear okay but is somewhat dull. No difficulty with his left ear. Patient also was found to be orthostatic with a greater than 20 mmHg drop in systolic pressure. However, heart rate only increases from 80 beats a minute to 87 bpm from laying to standing. Patient has no feelings of presyncope. He has no nausea or vomiting. No chest pain or tightness. No diaphoresis. Patient has no other acute complaints at this time. Review of Systems Review of Systems: A total of 10 systems was reviewed and is negative other than as listed in the HPI Physical Exam Physical Exam: GENERAL : No acute distress EYES: No icterus, gaze conjugate EARS: Otoscopic examination performed. Patient does have what appears to be cerumen in the right ear and I am unable to visualize tympanic membrane. There is also cerumen in the left external canal. Left tympanic membrane appears to be clear without evidence of erythema or air-fluid levels behind the membrane. Basic hearing test performed at bedside. No significant difference in hearing with both ears. NOSE: No evidence of epistaxis MOUTH: No lesions or candidiasis NECK: Supple LUNGS: CTA B/L, no wheezes, rales or rhonchi HEART: Regular, rate controlled ABDOMEN: Soft, NT, ND, BS Present EXTREMITIES: Trace bilateral LE edema, pedal pulses intact and equal bilaterally NEURO: A&OX3 Results & Data Results & Data Vital Signs (Past 12 Hours) Vital Signs Temp Pulse Resp BP Pulse Ox O2 Del Method 09/22/22 07:32 36.5 C 73 18 107/64 95 Room Air 09/21/22 22:34 36.6 C 79 18 114/65 96 Room Air Critical Care Results & Data Vital Signs (Past 12 Hours) Vital Signs Temp Pulse Resp BP Pulse Ox O2 Del Method 09/22/22 07:32 36.5 C 73 18 107/64 95 Room Air 09/21/22 22:34 36.6 C 79 18 114/65 96 Room Air Lab & Micro Results (Past 24 Hours) No Data to Display No Data to Display No Data to Display Diagnostic Findings (Past 24 Hours) Chest X-Ray 09/22/22 07:00 XR chest 1V portable HISTORY: 76 years-old Male f/u acute shortness of breath COMPARISON: Chest radiograph 09/21/2022, chest CT 09/17/2022. TECHNIQUE: AP view of the chest FINDINGS: Cardiomediastinal and hilar silhouettes are within normal limits. Unchanged tiny apical pneumothorax with pleural separation of approximately 2 mm. No pleural effusion or overt pulmonary edema. Mild persistent opacities at medial right lung base. Degenerative changes of the shoulders and spine. Right-sided rib fractures are again noted. IMPRESSION: 1. Unchanged trace right apical pneumothorax with right-sided rib fractures again noted. 2. Ill-defined opacities of the medial right lung base redemonstrated. ACT 112: Negative or not required by law. The above report was generated using voice recognition software. It may contain grammatical, syntax or spelling errors. Electronically signed by: Marquis Dalal M.D. 09/22/2022 7:40 AM I & O Totals 24 Hours 09/21/22 09/22/22 09/23/22 06:59 06:59 06:59 Intake Total 240 / 240 Output Total 300 / 300 1400 / 1400 300 / 300 Balance -300 / -300 -1160 / -1160 -300 / -300 Cumulative 09/17/22 11:17 thru 06/03/23 07:32 Intake Total 1670 Output Total 3925 Balance -2255 RT Ventilator Mngmt (Last Documented) Ventilator Ordered Settings Respiratory Rate 18 09/22/22 07:32 Ventilator - PT Measurements Respiratory Rate 18 PG Care Time/CCT Total # of Minutes Spent Total Time Spent with Patient: Total time spent is greater than 50% in coordination of care (as documented) at patient's floor/unit and/or counseling patient: Coding Level of Care Code 82648 SUB INP/OBS CARE 3/50MIN Diagnoses Pneumothorax J93.9 Multiple fractures of ribs S22.49XA Gait disturbance R26.9 CAD (coronary artery disease) I25.10 Fall from standing W19.XXXA Celiac disease K90.0 Dyslipidemia E78.5 Dysphagia R13.10 Dizziness R42 DVT prophylaxis Z29.9
[2022-09-22] MEDS: SERTRALINE HCL 50 MG TABLET PO SCH ×2 (09:48→20:19)
[2022-09-22] MEDS: ASPIRIN 81 MG ECTAB PO SCH (09:49)
[2022-09-22] MEDS: MAGNESIUM OXIDE 400 MG TAB PO SCH ×2 (09:49→20:19)
[2022-09-22] MEDS: LIDOCAINE 5% 1 PATCH TD SCH (09:50)
[2022-09-22] MEDS: POLYETHYLENE (MIRALAX) 17 GM PACK PO SCH (09:50)
[2022-09-22] MEDS: METOPROLOL SUCC 25MG EXT REL TAB PO SCH (10:11)
[2022-09-22] MEDS ORDERED: Nursing to Pharmacy Communication SCH (12:00)
[2022-09-22] MEDS: CARBAMIDE PEROXIDE 6.5% 15 ML BTL OTB SCH ×2 (13:12→20:18)
[2022-09-22] MEDS ORDERED: traMADol HCL 50 MG TABLET PO PRN (14:28)
[2022-09-22] MEDS: KETOROLAC TROMETHAMINE 15 MG/ML VIAL IV SCH ×2 (14:35→20:18)
[2022-09-22] MEDS: ATORVASTATIN 40 MG TAB PO SCH (20:19)
[2022-09-23] MEDS: KETOROLAC TROMETHAMINE 15 MG/ML VIAL IV SCH ×4 (02:25→20:40)
[2022-09-23] MEDS: ACETAMINOPHEN 325 MG TAB PO SCH ×4 (03:17→20:44)
--- NOTE | 2022-09-23 08:07 | XRay Report ---
XR chest 1V portable HISTORY: 76 years-old Male f/u acute shortness of breath COMPARISON: 09/22/2022 TECHNIQUE: AP view of the chest FINDINGS: Cardiomediastinal and hilar silhouettes are within normal limits. Unchanged tiny apical pneumothorax with pleural separation of approximately 2 mm. No pleural effusion or overt pulmonary edema. Mild per sistent opacities at medial right lung base. Degenerative changes of the shoulders and spine. Right-s ided rib fractures are again noted. IMPRESSION: 1. Unchanged trace right apical pneumothorax with right-sided rib fractures again noted. 2. Ill-defined opacities of the medial right lung base redemonstrated. ACT 112: Negative or not required by law. The above report was generated using voice recognition software. It may contain grammatical, syntax o r spelling errors. Electronically signed by: Marquis Dalal M.D. 09/23/2022 8:06 AM
[2022-09-23] MEDS: ASPIRIN 81 MG ECTAB PO SCH (08:26)
[2022-09-23] MEDS: MAGNESIUM OXIDE 400 MG TAB PO SCH ×2 (08:26→20:40)
[2022-09-23] MEDS: CARBAMIDE PEROXIDE 6.5% 15 ML BTL OTB SCH ×2 (08:26→20:40)
[2022-09-23] MEDS: POLYETHYLENE (MIRALAX) 17 GM PACK PO SCH (08:27)
[2022-09-23] MEDS: PANTOprazole 40 MG TAB PO SCH ×2 (08:27→16:53)
[2022-09-23] MEDS: METOPROLOL SUCC 25MG EXT REL TAB PO SCH (08:27)
[2022-09-23] MEDS: LIDOCAINE 5% 1 PATCH TD SCH (08:27)
--- NOTE | 2022-09-23 08:47 | Pulmonology Progress Note ---
Date of Service September 23, 2022 Assessment & Plan (1) Multiple fractures of ribs: (2) Pneumothorax: Plan CT chest 09/17/2022 personally reviewed: Right-sided pneumothorax, dilated upper esophagus Dependent atelectasis bilateral lower lobes more on the right side No significant mediastinal lymphadenopathy -- Secondary pneumothorax Likely secondary to multiple rib fractures s/p fall Avoid positive pressure ventilation Antitussive medication [id number] Pain management Case was discussed with [place] trauma team by MERY Mehta and their recommendation was conservative management for the time being. --Multiple rib fractures S/p fall Management as per primary team --Dizziness with orthostasis Plan as per primary team Plan: Minimal right apical pneumo on the chest x-ray from today. Pain management. Continue with lidocaine patch for the right-sided pain Avoid positive airway ventilation Recommend chest x-ray approximately a week from discharge and follow-up with primary care No further recommendation from pulmonary perspective, will sign off Please call directly with any questions Please note the above document was generated using voice recognition software. It may contain grammatical, syntax or spelling errors.Any formal questions or concerns about the content, text or information contained within the body of this dictation should be directly addressed to the provider for clarification. Admission and Anticipated Discharge Date Admission Date: September 17, 2022 Subjective Patient seen and examined at bedside. No acute distress, no adverse events overnight Rib pain has decreased in intensity Saturating well on room air Fair appetite Still complains of dizziness. No nausea vomiting Review of Systems Review of Systems: All systems reviewed & are unremarkable except as noted in Subjective Physical Exam Physical Exam: Constitutional: No acute distress HEENT: EOMI, PERRLA, no subcu emphysema Respiratory system: Decreased air entry on the right side, no wheeze, no rhonchi, mild crackles right lower lobe CVS: S1-S2 positive, no murmurs or gallops Abdomen: Soft, nontender, nondistended, positive bowel sounds x4 Extremities: +2 pulses bilaterally radialis/ dorsalis pedis, no cyanosis,+ 1 pitting edema bilateral lower extremity Neuro: Awake alert oriented x3 Psych: Normal mood and affect G/U: No Glover Musculoskeletal: Tenderness appreciated on the right lateral and posterior lateral ribs. No ecchymosis Skin: no rashes, warm and dry Lymphatic: no cervical or axillary lymphadenopathy Results & Data Results & Data Vital Signs (Past 12 Hours) Vital Signs Temp Pulse Resp BP Pulse Ox O2 Del Method 09/23/22 08:21 36.9 C 59 L 18 115/72 98 Room Air 09/22/22 22:49 36.9 C 85 17 125/70 99 Room Air Laboratory Results 09/20/22 07:38 09/20/22 07:38 PG Care Time/CCT Total # of Minutes Spent Total Time Spent with Patient: Total time spent is greater than 50% in coordination of care (as documented) at patient's floor/unit and/or counseling patient: Coding Level of Care Code 97574 SUB INP/OBS CARE 2/35MIN Diagnoses Multiple fractures of ribs S22.49XA Pneumothorax J93.9
--- NOTE | 2022-09-23 15:44 | Hospitalist Progress Note ---
Date of Service September 23, 2022 Assessment & Plan (1) Pneumothorax: Plan: Secondary to multiple rib fractures from ground-level fall Patient continues with small apical pneumothorax which appears to be stable Follow-up with chest x-ray in 7 days of discharge No indication for intervention with chest tube or needle decompression this is admission No chest pain No deviation of trachea No paradoxical wall motion of the chest (2) Multiple fractures of ribs: Plan: Multiple old rib fractures and no evidence of flail chest Patient continues with significant pain especially with deep inspiration Discussed splinting with a pillow with cough and deep breathing Patient encouraged to use incentive spirometer Will schedule Toradol and change tramadol to as needed Discontinue Dilaudid Increase ambulation as tolerated (3) Gait disturbance: Plan: This seems to be chronic and developing Most likely this contributed to fall PT/OT evaluation and treatment -recommend rehabilitation due to poor functional status and pain credit analysis manager working on placement Previous work-up included neurology evaluation ENT evaluation and audiology evaluation without good resolution of his symptom complex (4) CAD (coronary artery disease): Plan: No chest pain or tightness other than associated with acute rib fractures Continue with metoprolol succinate 25 mg daily, atorvastatin, aspirin Hemodynamically stable (5) Fall from standing: Plan: PT/OT evaluation and treatment -recommend rehabilitation due to poor functional status and pain. field worker working on placement Previous work-up included neurology evaluation ENT evaluation and audiology evaluation without good resolution of his symptom complex Patient is reporting some dizziness. Denies vertigo. No nystagmus on examination. Activity with assistance Continue to increase ambulation as well as continue treatment with PT/OT (6) Celiac disease: Plan: Gluten-free diet (7) Dyslipidemia: Plan: Continue atorvastatin (8) Dysphagia: Plan: Continue with aspiration precautions (9) Dizziness: Plan: Patient positive for orthostasis with drop of systolic blood pressure greater than 20 mmHg from sitting to standing. No significant increase in heart rate (80 to 87 bpm) Previous work-up included neurology evaluation ENT evaluation and audiology evaluation without good resolution of his symptom complex Patient does have right-sided impaction of cerumen in the external ear canal. Unable to visualize tympanic membrane Some cerumen in the left external ear canal. Able to visualize tympanic membrane which is clear with no evidence of air-fluid levels or bulging. Continue Debrox solution 5 drops each ear twice daily (10) DVT prophylaxis: Plan: Increase activity as tolerated Chemical prophylaxis has been held secondary to patient's recent fall with multiple rib fractures Plan Disposition: Case management is following. Working on placement Admission and Anticipated Discharge Date Admission Date: September 17, 2022 Subjective Patient feels better overall. No shortness of breath. Pain is improving. Review of Systems Review of Systems: All systems reviewed & are unremarkable except as noted in Subjective Physical Exam Physical Exam: General: Awake, conversant Heart: S1, S2/regular rate and rhythm, no murmur rubs or gallops Lungs: Clear to auscultation bilaterally. Normal effort Abdomen: Soft/nontender/nondistended. No hepatosplenomegaly Extremities: No clubbing/cyanosis. No edema Behavior: Appropriate, cooperative Results & Data Results & Data Vital Signs (Past 12 Hours) Vital Signs Temp Pulse Resp BP BP Pulse Ox O2 Del Method 09/23/22 15:30 37.0 C 89 16 107/62 95 Room Air 09/23/22 08:21 36.9 C 59 L 18 115/72 98 Room Air PG Care Time/CCT Total # of Minutes Spent Total Time Spent with Patient: Total time spent is greater than 50% in coordination of care (as documented) at patient's floor/unit and/or counseling patient: Coding Level of Care Code 25540 SUB INP/OBS CARE 2/35MIN Diagnoses Pneumothorax J93.9 Multiple fractures of ribs S22.49XA Gait disturbance R26.9 CAD (coronary artery disease) I25.10 Fall from standing W19.XXXA Celiac disease K90.0 Dyslipidemia E78.5 Dysphagia R13.10 Dizziness R42 DVT prophylaxis Z29.9
[2022-09-23] MEDS: ATORVASTATIN 40 MG TAB PO SCH (20:40)
[2022-09-23] MEDS: SERTRALINE HCL 50 MG TABLET PO SCH (20:40)
[2022-09-24] MEDS: KETOROLAC TROMETHAMINE 15 MG/ML VIAL IV SCH ×4 (02:18→19:35)
[2022-09-24] MEDS: ACETAMINOPHEN 325 MG TAB PO SCH ×4 (02:18→20:16)
[2022-09-24] MEDS: LIDOCAINE 5% 1 PATCH TD SCH (08:13)
[2022-09-24] MEDS: METOPROLOL SUCC 25MG EXT REL TAB PO SCH (08:14)
[2022-09-24] MEDS: POLYETHYLENE (MIRALAX) 17 GM PACK PO SCH (08:15)
[2022-09-24] MEDS: ASPIRIN 81 MG ECTAB PO SCH (08:15)
[2022-09-24] MEDS: MAGNESIUM OXIDE 400 MG TAB PO SCH ×2 (08:15→20:16)
[2022-09-24] MEDS: PANTOprazole 40 MG TAB PO SCH ×2 (08:15→16:45)
[2022-09-24] MEDS: CARBAMIDE PEROXIDE 6.5% 15 ML BTL OTB SCH ×2 (09:58→20:15)
[2022-09-24] MEDS: SODIUM CHLORIDE 0.9% 1000ML 1,000 ML IV SCH ×2 (11:45→23:08)
--- NOTE | 2022-09-24 15:24 | Hospitalist Progress Note ---
Date of Service September 24, 2022 Assessment & Plan (1) Pneumothorax: Plan: Secondary to multiple rib fractures from ground-level fall Patient continues with small apical pneumothorax which appears to be stable Follow-up with chest x-ray in 7 days of discharge No indication for intervention with chest tube or needle decompression this is admission No chest pain No deviation of trachea No paradoxical wall motion of the chest (2) Multiple fractures of ribs: Plan: Multiple old rib fractures and no evidence of flail chest Patient continues with significant pain especially with deep inspiration Discussed splinting with a pillow with cough and deep breathing Patient encouraged to use incentive spirometer Will schedule Toradol and change tramadol to as needed Discontinue Dilaudid Increase ambulation as tolerated (3) Gait disturbance: Plan: This seems to be chronic and developing Most likely this contributed to fall PT/OT evaluation and treatment -recommend rehabilitation due to poor functional status and pain associate product manager working on placement Previous work-up included neurology evaluation ENT evaluation and audiology evaluation without good resolution of his symptom complex (4) CAD (coronary artery disease): Plan: No chest pain or tightness other than associated with acute rib fractures Continue with metoprolol succinate 25 mg daily, atorvastatin, aspirin Hemodynamically stable (5) Fall from standing: Plan: PT/OT evaluation and treatment -recommend rehabilitation due to poor functional status and pain. air brake worker working on placement Previous work-up included neurology evaluation ENT evaluation and audiology evaluation without good resolution of his symptom complex Patient is reporting some dizziness. Denies vertigo. No nystagmus on examination. Activity with assistance Continue to increase ambulation as well as continue treatment with PT/OT Orthostatic hypotension noted. Will hydrate today. Recheck orthostatic blood pressure tomorrow (6) Celiac disease: Plan: Gluten-free diet (7) Dyslipidemia: Plan: Continue atorvastatin (8) Dysphagia: Plan: Continue with aspiration precautions (9) Dizziness: Plan: Patient positive for orthostasis with drop of systolic blood pressure greater than 20 mmHg from sitting to standing. No significant increase in heart rate (80 to 87 bpm) Previous work-up included neurology evaluation ENT evaluation and audiology evaluation without good resolution of his symptom complex Patient does have right-sided impaction of cerumen in the external ear canal. Unable to visualize tympanic membrane Some cerumen in the left external ear canal. Able to visualize tympanic membrane which is clear with no evidence of air-fluid levels or bulging. Continue Debrox solution 5 drops each ear twice daily (10) DVT prophylaxis: Plan: Increase activity as tolerated Chemical prophylaxis has been held secondary to patient's recent fall with multiple rib fractures (11) Orthostatic hypotension: Plan: Most likely secondary to dehydration We will treat with IV fluids today Started on normal saline at 80 mils an hour Plan Disposition: Case management is following. Working on placement Admission and Anticipated Discharge Date Admission Date: September 17, 2022 Subjective Patient complains of feeling dizzy when he stands up. Physical therapy documented his blood pressure. There has been an orthostatic drop. Patient complains of feeling very thirsty. Review of Systems Review of Systems: All systems reviewed & are unremarkable except as noted in Subjective Physical Exam Physical Exam: General: Awake, conversant Heart: S1, S2/regular rate and rhythm, no murmur rubs or gallops Lungs: Clear to auscultation bilaterally. Normal effort Abdomen: Soft/nontender/nondistended. No hepatosplenomegaly Extremities: No clubbing/cyanosis. No edema Behavior: Appropriate, cooperative Results & Data Results & Data Vital Signs (Past 12 Hours) Vital Signs Temp Pulse Resp BP Pulse Ox O2 Del Method 09/24/22 15:11 37.2 C 89 18 94/61 L 96 Room Air 09/24/22 07:01 36.5 C 73 17 135/67 96 Room Air PG Care Time/CCT Total # of Minutes Spent Total Time Spent with Patient: Total time spent is greater than 50% in coordination of care (as documented) at patient's floor/unit and/or counseling patient: Coding Level of Care Code 64034 SUB INP/OBS CARE 2/35MIN Diagnoses Pneumothorax J93.9 Multiple fractures of ribs S22.49XA Gait disturbance R26.9 CAD (coronary artery disease) I25.10 Fall from standing W19.XXXA Celiac disease K90.0 Dyslipidemia E78.5 Dysphagia R13.10 Dizziness R42 DVT prophylaxis Z29.9 Orthostatic hypotension I95.1
[2022-09-24] MEDS: ATORVASTATIN 40 MG TAB PO SCH (20:15)
[2022-09-24] MEDS: SERTRALINE HCL 50 MG TABLET PO SCH (20:16)
[2022-09-25] MEDS: KETOROLAC TROMETHAMINE 15 MG/ML VIAL IV SCH ×4 (01:42→20:19)
[2022-09-25] MEDS: ACETAMINOPHEN 325 MG TAB PO SCH ×4 (02:37→21:42)
[2022-09-25] MEDS: PANTOprazole 40 MG TAB PO SCH ×2 (08:31→16:30)
[2022-09-25] MEDS: MAGNESIUM OXIDE 400 MG TAB PO SCH ×2 (08:35→20:19)
[2022-09-25] MEDS: LIDOCAINE 5% 1 PATCH TD SCH (08:35)
[2022-09-25] MEDS: ASPIRIN 81 MG ECTAB PO SCH (08:35)
[2022-09-25] MEDS: POLYETHYLENE (MIRALAX) 17 GM PACK PO SCH (08:36)
[2022-09-25] MEDS: CARBAMIDE PEROXIDE 6.5% 15 ML BTL OTB SCH ×2 (08:36→20:19)
[2022-09-25] MEDS: METOPROLOL SUCC 25MG EXT REL TAB PO SCH (08:45)
--- NOTE | 2022-09-25 15:36 | Hospitalist Progress Note ---
Date of Service September 25, 2022 Assessment & Plan (1) Pneumothorax: Plan: Secondary to multiple rib fractures from ground-level fall Patient continues with small apical pneumothorax which appears to be stable Follow-up with chest x-ray in 7 days of discharge No indication for intervention with chest tube or needle decompression this is admission No chest pain No deviation of trachea No paradoxical wall motion of the chest (2) Multiple fractures of ribs: Plan: Multiple old rib fractures and no evidence of flail chest Patient continues with significant pain especially with deep inspiration Discussed splinting with a pillow with cough and deep breathing Patient encouraged to use incentive spirometer Will schedule Toradol and change tramadol to as needed Discontinue Dilaudid Increase ambulation as tolerated Check BMP in a.m. since on Toradol (3) Gait disturbance: Plan: This seems to be chronic and developing Most likely this contributed to fall PT/OT evaluation and treatment -recommend rehabilitation due to poor functional status and pain pit manager working on placement Previous work-up included neurology evaluation ENT evaluation and audiology evaluation without good resolution of his symptom complex (4) CAD (coronary artery disease): Plan: No chest pain or tightness other than associated with acute rib fractures Continue with metoprolol succinate 25 mg daily, atorvastatin, aspirin Hemodynamically stable (5) Fall from standing: Plan: PT/OT evaluation and treatment -recommend rehabilitation due to poor functional status and pain. wheel worker working on placement Previous work-up included neurology evaluation ENT evaluation and audiology evaluation without good resolution of his symptom complex Patient is reporting some dizziness. Denies vertigo. No nystagmus on examination. Activity with assistance Continue to increase ambulation as well as continue treatment with PT/OT Orthostatic hypotension noted 09/24. Patient was given IV fluids Discontinue IV fluids and recheck orthostatic vital signs tomorrow Check BMP in a.m. Check CBC in a.m. (6) Celiac disease: Plan: Gluten-free diet (7) Dyslipidemia: Plan: Continue atorvastatin (8) Dysphagia: Plan: Continue with aspiration precautions (9) Dizziness: Plan: Patient positive for orthostasis with drop of systolic blood pressure greater than 20 mmHg from sitting to standing. Check orthostatic vital signs tomorrow (10) DVT prophylaxis: Plan: Increase activity as tolerated Chemical prophylaxis has been held secondary to patient's recent fall with multiple rib fractures (11) Orthostatic hypotension: Plan: Patient was treated with IV fluid and on IV fluid, he is still mildly orthostatic Stop IV fluids Recheck orthostatic vital signs tomorrow Check BMP Check CBC Plan Disposition: Case management is following. Working on placement. Patient is refusing to be discharged today Admission and Anticipated Discharge Date Admission Date: September 17, 2022 Subjective Patient keeps complaining of dizziness. Orthostatic vital signs were positive again however blood pressure did not drop to less than 100. This was on IV fluids. Plan is to discontinue IV fluids today and recheck orthostatic vital signs tomorrow. Review of Systems Review of Systems: All systems reviewed & are unremarkable except as noted in Subjective Physical Exam Physical Exam: General: Awake, conversant Heart: S1, S2/regular rate and rhythm, no murmur rubs or gallops Lungs: Clear to auscultation bilaterally. Normal effort Abdomen: Soft/nontender/nondistended. No hepatosplenomegaly Extremities: No clubbing/cyanosis. No edema Behavior: Appropriate, cooperative Results & Data Results & Data Vital Signs (Past 12 Hours) Vital Signs Temp Pulse Resp BP BP Pulse Ox O2 Del Method 09/25/22 15:07 36.7 C 87 18 116/72 95 Room Air 09/25/22 10:32 102 H 128/78 09/25/22 10:31 93 H 153/79 H 09/25/22 10:30 90 144/81 H 09/25/22 08:59 Room Air 09/25/22 08:46 78 132/79 09/25/22 07:14 36.8 C 82 18 145/67 H 95 Room Air PG Care Time/CCT Total # of Minutes Spent Total Time Spent with Patient: Total time spent is greater than 50% in coordination of care (as documented) at patient's floor/unit and/or counseling patient: Coding Level of Care Code 26713 SUB INP/OBS CARE 2/35MIN Diagnoses Pneumothorax J93.9 Multiple fractures of ribs S22.49XA Gait disturbance R26.9 CAD (coronary artery disease) I25.10 Fall from standing W19.XXXA Celiac disease K90.0 Dyslipidemia E78.5 Dysphagia R13.10 Dizziness R42 DVT prophylaxis Z29.9 Orthostatic hypotension I95.1
[2022-09-25] MEDS: SERTRALINE HCL 50 MG TABLET PO SCH (20:19)
[2022-09-25] MEDS: ATORVASTATIN 40 MG TAB PO SCH (20:19)
[2022-09-26] MEDS: ACETAMINOPHEN 325 MG TAB PO SCH ×3 (02:30→15:09)
[2022-09-26] MEDS: KETOROLAC TROMETHAMINE 15 MG/ML VIAL IV SCH ×3 (02:30→13:39)
[2022-09-26] MEDS: PANTOprazole 40 MG TAB PO SCH (08:03)
[2022-09-26] MEDS: METOPROLOL SUCC 25MG EXT REL TAB PO SCH (08:04)
[2022-09-26] MEDS: ASPIRIN 81 MG ECTAB PO SCH (08:04)
[2022-09-26] MEDS: MAGNESIUM OXIDE 400 MG TAB PO SCH (08:04)
[2022-09-26] MEDS: LIDOCAINE 5% 1 PATCH TD SCH (08:05)
[2022-09-26] MEDS: CARBAMIDE PEROXIDE 6.5% 15 ML BTL OTB SCH (08:05)
[2022-09-26 09:43] LABS: Hematocrit (blood only) 39.2 % (42.0-52.0); Hemoglobin 13.3 g/dl (14.0-18.0); Mean Corpuscular Hgb Conc 33.9 g/dL (32.0-36.0); Mean Corpuscular Volume 88.3 fL (80.0-100.0); Mean Platelet Volume 9.5 fL (9.4-12.4); Platelet Count 228 K/uL (130-400); RDW Coefficient of Variation 13.2 % (11.5-14.5); RDW Standard Deviation 42.6 fL (36.4-46.3); Red Blood Count 4.44 M/uL (4.70-6.10); White Blood Count 6.85 K/ul (4.8-10.8)
--- NOTE | 2022-09-26 09:51 | Hospitalist Progress Note ---
Date of Service September 26, 2022 Assessment & Plan (1) Pneumothorax: Plan: Secondary to multiple rib fractures from ground-level fall Patient continues with small apical pneumothorax which appears to be stable Follow-up with chest x-ray in 7 days of discharge No indication for intervention with chest tube or needle decompression this is admission No chest pain No deviation of trachea No paradoxical wall motion of the chest (2) Multiple fractures of ribs: Plan: Multiple old rib fractures and no evidence of flail chest Patient continues with significant pain especially with deep inspiration Discussed splinting with a pillow with cough and deep breathing Patient encouraged to use incentive spirometer Will schedule Toradol and change tramadol to as needed Discontinue Dilaudid Increase ambulation as tolerated Check BMP in a.m. since on Toradol (3) Gait disturbance: Plan: This seems to be chronic and developing Most likely this contributed to fall PT/OT evaluation and treatment -recommend rehabilitation due to poor functional status and pain division service manager working on placement Previous work-up included neurology evaluation ENT evaluation and audiology evaluation without good resolution of his symptom complex (4) CAD (coronary artery disease): Plan: No chest pain or tightness other than associated with acute rib fractures Continue with metoprolol succinate 25 mg daily, atorvastatin, aspirin Hemodynamically stable (5) Fall from standing: Plan: PT/OT evaluation and treatment -recommend rehabilitation due to poor functional status and pain. long term care social worker working on placement Previous work-up included neurology evaluation ENT evaluation and audiology evaluation without good resolution of his symptom complex Patient is reporting some dizziness. Denies vertigo. No nystagmus on examination. Activity with assistance Continue to increase ambulation as well as continue treatment with PT/OT Orthostatic hypotension noted 09/24. Patient was given IV fluids Discontinue IV fluids and recheck orthostatic vital signs tomorrow Check BMP in a.m. Check CBC in a.m. (6) Celiac disease: Plan: Gluten-free diet (7) Dyslipidemia: Plan: Continue atorvastatin (8) Dysphagia: Plan: Continue with aspiration precautions (9) Dizziness: Plan: Patient positive for orthostasis with drop of systolic blood pressure greater than 20 mmHg from sitting to standing. Check orthostatic vital signs tomorrow (10) DVT prophylaxis: Plan: Increase activity as tolerated Chemical prophylaxis has been held secondary to patient's recent fall with multiple rib fractures (11) Orthostatic hypotension: Plan: Patient was treated with IV fluid and on IV fluid, he is still mildly orthostatic Stop IV fluids Recheck orthostatic vital signs tomorrow Check BMP Check CBC Plan Disposition: Case management is following. Working on placement. Patient is refusing to be discharged today Admission and Anticipated Discharge Date Admission Date: September 17, 2022 Results & Data Results & Data Vital Signs (Past 12 Hours) Vital Signs Temp Pulse Resp BP Pulse Ox O2 Del Method 09/26/22 08:00 36.3 C L 69 18 130/75 95 Room Air PG Care Time/CCT Total # of Minutes Spent Total Time Spent with Patient: Total time spent is greater than 50% in coordination of care (as documented) at patient's floor/unit and/or counseling patient: Coding Diagnoses Pneumothorax J93.9 Multiple fractures of ribs S22.49XA Gait disturbance R26.9 CAD (coronary artery disease) I25.10 Fall from standing W19.XXXA Celiac disease K90.0 Dyslipidemia E78.5 Dysphagia R13.10 Dizziness R42 DVT prophylaxis Z29.9 Orthostatic hypotension I95.1
[2022-09-26 10:05] LABS: BUN Creatinine Ratio 32.1 (10-20); Calcium 8.9 mg/dl (8.6-10.3); Creatinine Clr Calc Pharmacy 68.2 ml/min; Est GFR (African American) 100.9 ml/min; Est GFR (Non-African American) 87.1 ml/min; Potassium 3.9 mmol/L (3.5-5.1)
[2022-09-26] MEDS: POLYETHYLENE (MIRALAX) 17 GM PACK PO SCH (10:36)
[2022-09-26] MEDS ORDERED: SODIUM CHLORIDE 0.9% 1000ML 1,000 ML IV ONE (13:17)
--- NOTE | 2022-09-26 13:35 | Discharge Summary ---
Discharge Summary Date of Service September 26, 2022 Admission HPI Per Admitting Provider Inder is a 76 year old male with a PMH significant for CAD, dyslipidemia, mild intermittent asthma, HTN who presented to the [facility] ED on 09/17/22 with a chief complaint of a fall at home. In the ED vitals were stable. Labs were significant for a leukocytosis of 12 with left shift of 10 and covid [address] of the head was negative for acute findings. CT of the cervical spine was read as no acute findings with age indeterminate mild superior endplate T1 and T2 compression fractures. CT of the chest/abd/pelvis w/IV con was read as Acute undisplaced fracture of the posterior right 11th rib. Mild cortical angulation of the posterior right 10th and 12th ribs. Acute nondisplaced fractures lateral right eighth, ninth and 10th ribs. 2. Right-sided hydropneumothorax. 3. Mild age-indeterminate superior endplate compression at T1 and T2. No retropulsion. 4. No acute posttraumatic intra-abdominal or intrapelvic abnormality identified. 5. Nonobstructing bilateral n ephrolithiasis.. The ED staff spoke with the [facility] team who explained that the patient could be admitted to [facility] if our Pulmonology team was comfortable managing the Pneumothorax. The patient was evaluated by Pulmonology who recommended Hospital Medicine admission to the PCU at this time.Prior to admission the patient was given 2 mg IV morphine. At the time of the exam the patient was sitting in bed in no acute distress. He states that he was in his normal state of health upon waking around 0500 this am. 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 He states that he has had chronic balance issues and typically loses his balance to the right. He fell on his right side and denies hitting his head or losing consciousness. 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 After getting up he had progressive right chest pain and SOB, which is why he presented to the ED. He is currently feeling well until he takes a deep breath, then he experiences sharp right-sided chest pain. He denies any lightheadedness, dizziness, chest pain, heart palpitations, or SOB prior to his fall. The 2 mg of IV morphine he received in the ED improved his symptoms. He wishes to be a conditional code with a trial of intubation in the event of respiratory failure. He would not want CPR or defibrillation in the event of cardiac arrest. His Daughter is his POA. Please refer to Dr. Nugent's attestation for any changes to the treatment plan Admission Exam Per Admitting Provider General: In no acute distress, stated age, well-nourished, good hygiene HEENT: Normocephalic, atraumatic, no scleral icterus, pupils around round, symmetrical, and reactive to light, moist mucus membranes, trachea midline, no thyromegaly Chest/Pulm: No respiratory distress, symmetrical chest expansion/no sign of flail chest, decreased breath sounds in the right upper lung field, currently taking shallow breaths due to pain Cardiac: RRR, no murmurs noted Abdomen: Negative for ascites and bruising, normoactive bowel sounds, soft, non-tender to palpation throughout Musculoskeletal: upper and lower extremities with full ROM, no atrophy, spasticity, or flaccidity, no tenderness to palpation or acute trauma of the head, cervical spine, collar bones, and BL hips Extremities: Radial, dorsalis pedis, and posterior tibial pulses are intact and symmetrical, no edema noted in the BL LE's Skin: Warm, dry, no rashes , lesions, or scars noted Neuro: Alert and oriented to person, place, month, year, and president, no focal defects, CN II-XII tested and intact, no tremors noted Psych: No acute distress, calm and cooperative during the exam Principal Dx & Hospital Course #1 = Principal Diagnosis (1) Pneumothorax: (2) Multiple fractures of ribs: (3) Gait disturbance: (4) CAD (coronary artery disease): (5) Fall from standing: (6) Celiac disease: (7) Dyslipidemia: (8) Dysphagia: (9) Dizziness: (10) DVT prophylaxis: (11) Orthostatic hypotension: Plan Pneumothorax: Secondary to multiple rib fractures from ground-level fall Patient continues with small apical pneumothorax which appears to be stable Follow-up with chest x-ray in 7 days of discharge No indication for intervention with chest tube or needle decompression this admission Multiple fractures of ribs: Multiple old rib fractures and no evidence of flail chest Patient continues with pain especially with deep inspiration Discussed splinting with a pillow with cough and deep breathing Patient encouraged to use incentive spirometer Ibuprofen / Tylenol scheduled, with oxycodone 5/325 as needed for severe/breakthrough pain/before PT Gait disturbance: Chronic, worsening Most likely this contributed to fall Previous work-up included neurology evaluation ENT evaluation and audiology evaluation without good resolution of his symptom complex Some benign vertigo noted, recommended PO fluids, slow transitions CAD (coronary artery disease): No chest pain or tightness other than associated with acute rib fractures Continue with atorvastatin, aspirin Metoprolol held due to orthostatic hypotension Celiac disease: Gluten-free diet Dyslipidemia: Continue atorvastatin Dysphagia: Continue with aspiration precautions Dizziness, orthostatic hypotension: Patient positive for orthostasis with drop of systolic blood pressure greater than 20 mmHg from sitting to standing BP no lower than 105mmHg today, will hold metoprolol and has received IVF this admission Do not feel patient requires Florinef or midodrine for BP support, defer in favor of holding metoprolol and encouraging PO fluids DVT prophylaxis: Increase activity as tolerated Chemical prophylaxis has been held secondary to patient's recent fall with multiple rib fractures Discharge Exam Constitutional WD/WN, vitals as above Respiratory normal respiratory effort, lungs clear to auscultation Cardiovascular RRR, no murmur, no edema Neurologic positional vertigo, improves with about 2-3 seconds of no movement Updated Medication List Medication Instructions Recorded Confirmed Type sennosides 8.6 mg-docusate sodium 1 tab-cap PO BID PRN Constipation 10/11/20 09/17/22 History 50 mg tablet (Colace 2-In-1) nitroglycerin 0.4 mg sublingual 0.4 mg sublingual Q5M PRN chest 01/25/21 09/17/22 Rx tablet pain #20 tabs aspirin 81 mg tablet,delayed 81 mg PO DAILY #90 tabs 02/07/21 09/17/22 Rx release (Adult Low Dose Aspirin) magnesium oxide 400 mg PO BID #180 caps 05/01/21 09/17/22 Rx ondansetron HCl 8 mg tablet 8 mg PO Q8H PRN nausea and 10/02/21 09/17/22 Rx vomiting #20 tabs pantoprazole 40 mg tablet,delayed 40 mg PO BID GERD and gastritis 3 04/19/22 09/17/22 Rx release (Protonix) months #180 tabs sertraline 50 mg tablet 50 mg PO DAILY 04/19/22 09/17/22 History terbinafine HCl 250 mg tablet 250 mg PO DAILY PRN infection 06/07/22 09/17/22 History lorazepam 1 mg tablet 1 mg PO TID PRN anxiety #90 tabs 07/05/22 09/17/22 Rx atorvastatin 40 mg tablet 40 mg PO HS #90 tabs 07/09/22 09/17/22 Rx metoprolol succinate 25 mg 25 mg PO QAM #90 tabs 09/11/22 09/17/22 Rx tablet,extended release 24 hr multivitamin (Daily Multi-Vitamin 1 tab PO DAILY 09/17/22 09/17/22 History tablet) lidocaine 5 % topical patch 1 patch transdermal QAM 30 days 09/26/22 Rx #30 ea tramadol 50 mg tablet 50 mg PO TID PRN severe pain 09/26/22 Rx (scale score 7-10) 5 days #15 tabs Hospital Stay Data Consultations 09/17/22 15:32 Consult Pulmonology Routine Diagnostic Imagining Performed 09/17/22 11:43 CT Abd and Pelvis [CT abd pelvis IV con only] Stat CT cervical spine wo con Stat CT chest diagnostic w con Stat 09/17/22 11:44 CT head/brain wo con Stat Pending Results Patient Have Any Pending Studies at Discharge: No Discharge Instructions Given to Patient (Per Discharging Provider) Pneumothorax: Secondary to multiple rib fractures from ground-level fall Patient continues with small apical pneumothorax which appears to be stable Follow-up with chest x-ray in 7 days of discharge and follow up with PCP No indication for intervention with chest tube or needle decompression this admission Multiple fractures of ribs: Multiple old rib fractures and no evidence of flail chest Patient continues with pain especially with deep inspiration Discussed splinting with a pillow with cough and deep breathing Patient encouraged to use incentive spirometer Ibuprofen / Tylenol scheduled, with oxycodone 5/325 as needed for severe/breakthrough pain/before PT Gait disturbance: Chronic, worsening Most likely this contributed to fall Previous work-up included neurology evaluation ENT evaluation and audiology evaluation without good resolution of his symptom complex Some benign vertigo noted, recommended PO fluids, slow transitions CAD (coronary artery disease): No chest pain or tightness other than associated with acute rib fractures Continue with atorvastatin, aspirin Metoprolol held due to orthostatic hypotension Celiac disease: Gluten-free diet Dyslipidemia: Continue atorvastatin Dysphagia: Continue with aspiration precautions Dizziness, orthostatic hypotension: Patient positive for orthostasis with drop of systolic blood pressure greater than 20 mmHg from sitting to standing BP no lower than 105mmHg today, will hold metoprolol and has received IVF this admission Do not feel patient requires Florinef or midodrine for BP support, defer in favor of holding metoprolol and encouraging PO fluids DVT prophylaxis: Increase activity as tolerated Chemical prophylaxis has been held secondary to patient's recent fall with multiple rib fractures Total Time Total Time Spent Total Time Spent (In Minutes): 35 min Coding Level of Care Code 55393 INP/OBS DISCH >30 MIN Diagnoses Pneumothorax J93.9 Multiple fractures of ribs S22.49XA Gait disturbance R26.9 CAD (coronary artery disease) I25.10 Fall from standing W19.XXXA Celiac disease K90.0 Dyslipidemia E78.5 Dysphagia R13.10 Dizziness R42 DVT prophylaxis Z29.9 Orthostatic hypotension I95.1
== END 2022-09-26 16:09 | DRG 199 ==
LOC: ED 11:17 → SUATTDRO 15:30 → 2E 15:30 → 3N 09-19 23:55
DX: E86.0 Dehydration; I25.10 Atherosclerotic heart disease of native coronary artery without angina pectoris; I25.2 Old myocardial infarction; R26.2 Difficulty in walking, not elsewhere classified; I95.1 Orthostatic hypotension; S27.0XXA Traumatic pneumothorax, initial encounter; Z63.6 Dependent relative needing care at home; K90.0 Celiac disease; S22.41XA Multiple fractures of ribs, right side, initial encounter for closed fracture; E43 Unspecified severe protein-calorie malnutrition; R13.10 Dysphagia, unspecified; Z88.1 Allergy status to other antibiotic agents; W22.8XXA Striking against or struck by other objects, initial encounter; J98.11 Atelectasis; Y92.010 Kitchen of single-family (private) house as the place of occurrence of the external cause; J45.20 Mild intermittent asthma, uncomplicated; Z79.82 Long term (current) use of aspirin